=== PATIENT | female | born 1950 | race Caucasian/White ===

== ENCOUNTER 2022-01-05 06:15 | Inpatient (IN) ==
--- NOTE | 2021-09-24 11:40 | PAT Medication Instructions ---
Medication Instructions Date of Service September 24, 2021 Home Medications acetaminophen 500 mg tablet 500 mg PO Q6H PRN albuterol sulfate 90 mcg/actuation aerosol inhaler 2 puff INHALATION QID PRN aspirin 81 mg tablet,delayed release 81 mg PO QAM atorvastatin 40 mg tablet 40 mg PO HS bupropion HCl 100 mg tablet,12 hr sustained-release 100 mg PO QAM escitalopram oxalate 20 mg tablet 20 mg PO QAM furosemide 40 mg tablet 40 mg PO QAM gabapentin 800 mg tablet 800 mg PO TID lorazepam 0.5 mg tablet 0.5 mg PO TID PRN losartan 50 mg tablet 50 mg PO QAM meclizine 25 mg capsule 24 mg PO TID PRN metformin 1,000 mg tablet 1,000 mg PO BID metoprolol tartrate 25 mg tablet 25 mg PO QAM oxycodone-acetaminophen 5 mg-325 mg tablet (Percocet) 1 tab PO Q4H PRN pantoprazole 40 mg tablet,delayed release 40 mg PO QAM ziprasidone HCl 40 mg capsule (Geodon) 40 mg PO BID ASK your prescriber and surgeon aspirin 81 mg tablet,delayed release 81 mg PO QAM ziprasidone HCl 40 mg capsule (Geodon) 40 mg PO BID DO NOT take the morning of surgery furosemide 40 mg tablet 40 mg PO QAM losartan 50 mg tablet 50 mg PO QAM metformin 1,000 mg tablet 1,000 mg PO BID Take morning of surgery With a small sip of water, OTHERWISE NOTHING TO EAT OR DRINK AFTER MIDNIGHT: acetaminophen 500 mg tablet 500 mg PO Q6H PRN (if needed) albuterol sulfate 90 mcg/actuation aerosol inhaler 2 puff INHALATION QID PRN (use if needed; please bring rescue inhaler with you to hospital day of surgery if possible) bupropion HCl 100 mg tablet,12 hr sustained-release 100 mg PO QAM escitalopram oxalate 20 mg tablet 20 mg PO QAM gabapentin 800 mg tablet 800 mg PO TID lorazepam 0.5 mg tablet 0.5 mg PO TID PRN (if needed) meclizine 25 mg capsule 24 mg PO TID PRN (if needed) metoprolol tartrate 25 mg tablet 25 mg PO QAM oxycodone-acetaminophen 5 mg-325 mg tablet (Percocet) 1 tab PO Q4H PRN (if needed) pantoprazole 40 mg tablet,delayed release 40 mg PO QAM Take evening before surgery acetaminophen 500 mg tablet 500 mg PO Q6H PRN (if needed) albuterol sulfate 90 mcg/actuation aerosol inhaler 2 puff INHALATION QID PRN (if needed) atorvastatin 40 mg tablet 40 mg PO HS gabapentin 800 mg tablet 800 mg PO TID lorazepam 0.5 mg tablet 0.5 mg PO TID PRN (if needed) meclizine 25 mg capsule 24 mg PO TID PRN (if needed) metformin 1,000 mg tablet 1,000 mg PO BID oxycodone-acetaminophen 5 mg-325 mg tablet (Percocet) 1 tab PO Q4H PRN (if need ed) Other Notes If you have any questions please call us at [phone] or [phone] or [phone] or [phone]
--- NOTE | 2021-10-02 11:10 | Anesthesiology Consultation ---
Date of Service October 02, 2021 Assessment & Plan (1) Encounter for pre-operative examination: - dyspnea on exertion: will attempt to obtain most recent cardiology note. - check BSG am DOS. - COVID screening: Per assessment on 10/02/2021: Travel screen negative, no known COVID-19 positive contacts or current COVID-19 related symptoms in past 2 weeks. Pt vaccinated. Surgeon arranging preop COVID testing, scheduled 11/06/2021. Awaiting results. Chart Review Chart Review: Pending: Refer to Additional Notes / Consult section and Patient seen in Pre Admission Testing Teaching & Discussion Pre-Anesthesia Teaching/Discussion Notes: Instructed NPO after midnight before surgery, except medications with 15 cc of water. Medication instructions provided according to the PAT guidelines. History Surgery Operation Date: 11/10/21 07:00 Proposed Procedures p Right Total Shoulder Arthroplasty Reverse - Enoch Capellan, Height/Weight Height: 5 ft 3 in Weight: 133.2 kg Allergies Allergy/AdvReac Type Severity Reaction Status Date / Time cephalexin [From Keflex] Allergy Unknown Rash Verified 09/18/21 13:14 Penicillins Allergy Unknown A Verified 09/18/21 13:14 CHILD-RASH Medications Home Medications Medication Instructions Recorded Confirmed Last Taken acetaminophen 500 mg tablet 500 mg PO Q6H PRN 09/18/21 09/18/21 Unknown albuterol sulfate 90 mcg/actuation 2 puff INHALATION QID PRN 09/18/21 09/18/21 Unknown aerosol inhaler aspirin 81 mg tablet,delayed 81 mg PO QAM 09/18/21 09/18/21 Unknown release atorvastatin 40 mg tablet 40 mg PO HS 09/18/21 09/18/21 Unknown bupropion HCl 100 mg tablet,12 hr 100 mg PO QAM 09/18/21 09/18/21 Unknown sustained-release escitalopram oxalate 20 mg tablet 20 mg PO QAM 09/18/21 09/18/21 Unknown furosemide 40 mg tablet 40 mg PO QAM 09/18/21 09/18/21 Unknown gabapentin 800 mg tablet 800 mg PO TID 09/18/21 09/18/21 Unknown lorazepam 0.5 mg tablet 0.5 mg PO TID PRN 09/18/21 09/18/21 Unknown losartan 50 mg tablet 50 mg PO QAM 09/18/21 09/18/21 Unknown meclizine 25 mg capsule 24 mg PO TID PRN 09/18/21 09/18/21 Unknown metformin 1,000 mg tablet 1,000 mg PO BID 09/18/21 09/18/21 Unknown metoprolol tartrate 25 mg tablet 25 mg PO QAM 09/18/21 09/18/21 Unknown oxycodone-acetaminophen 5 mg-325 1 tab PO Q4H PRN 09/18/21 09/18/21 Unknown mg tablet (Percocet) pantoprazole 40 mg tablet,delayed 40 mg PO QAM 09/18/21 09/18/21 Unknown release ziprasidone HCl 40 mg capsule 40 mg PO BID 09/18/21 09/18/21 Unknown (Laila) Additional Notes: Pt and accompanying friend advised in detail that Laila is fine to continue from anesthesia standpoint, she just needs to check if prescriber/surgeon have any concerns/recommendations crescencio-operatively. They verbalized understanding to not adjust medication without instruction from prescriber and if advised to continue, we agree with continuing medication including day of surgery. They verbalized understanding and agreement, denied questions or concerns. Past Medical History Medical History (Updated 10/03/21 @ 08:15 by Beth Lopez PA-C) Anemia 10/02/21 pre-op H&H: Anxiety Asthma LAST USE INHALER MORE THAN 1 YR AGO Cardiac murmur chronic per pt, poor visualization on 04/26/17 echo-no Doppler evidence of valvular stenosis of regurgitation Chronic cough denies change or worsening, occasionally productive, follows with PCP Depression Diabetes NIDDM Dyspnea on effort occ. walking between rooms, denies chest discomfort GERD (gastroesophageal reflux disease) controlled, stable per pt Hiatal hernia Hyperlipidemia Hypertension controlled, stable; white coat hypertension Morbid obesity with BMI of 50.0-59.9, adult Sleep apnea unable to tolerate CPAP device Urgency of urination Patient denies h/o stroke, seizures, heart attack, heart failure, blood clots or blood transfusions. Exercise / Class Metabolic Activity III < 4 Walking/Shop/Light housework (ambulates with walker, occ SOB walking between rooms-chronic; denies chest discomfort) Past Family History Family History Sister Family history of reaction to anesthesia Mother Family history of diabetes mellitus Past Surgical History Surgical History History of appendectomy History of bilateral tubal ligation History of bladder repair surgery History of cardiac cath MORE THAN 10 YRS AGO-NO STENTS PLACED History of cholecystectomy History of colonoscopy History of dilatation and curettage History of esophagogastroduodenoscopy (EGD) History of nasal surgery S/P FRACTURE History of tonsillectomy Past Anesthesia History No Hx of Anesthesia Complications and No Family Hx of Anesthesia Complications History of PONV No Hx of PONV and No Hx of Motion Sickness Social History Smoking Status: Never smoker Do You Dip or Chew Tobacco: No Hx Alcohol Use: No Hx Substance Use: No Review of Systems Patient denies chest pain, fever, chills, wheezing, or palpitations. Physical Exam Vital Signs Vitals BP 134/82 P 56 TEMP 98.0 SP02 95% on RA RESP 17 Physical Full cervical extension range of motion without pain TMD 3.5 finger breaths Mallampati Score 3 Dentition: edentulous, full upper and lower dentures Lungs: normal respiratory effort. Clear throughout to auscultation, no adventitious breath sounds Cardiac: regular rate and rhythm, 2/6 systolic murmur Carotid arteries: negative bruit bilat Lab Results Anesthesia Preop Results Results Anesthesia Widget: WBC 9.54 K/ul (4.8-10.8) 10/02/21 Hgb 10.9 g/dl (12.0-16.0) L 10/02/21 Hct 34.8 % (34.1-44.9) 10/02/21 Plt 277 K/uL (130-400) 10/02/21 Na 136 mmol/L (136-145) 10/02/21 K 4.7 mmol/L (3.5-5.1) 10/02/21 Cl 99 mmol/L (98-107) 10/02/21 CO2 30 mmol/L (21-32) 10/02/21 BUN 18 mg/dl (6-23) 10/02/21 Creat 0.75 mg/dl (0.6-1.2) 10/02/21 Glucose Level 154 mg/dl (70-99(Fasting)) H 10/02/21 PT 10.2 Seconds (9.0-12.0) 10/02/21 PTT 23.9 Seconds (21.0-31.0) 10/02/21 INR 1.0 (0.9-1.1) 10/02/21 HA1c 8.3 % (4.5-5.6) H 10/02/21 Blood Type B Positive 10/02/21 Antibody Screen NEGATIVE 10/02/21 Testing Laboratory Results Myra with surgeon's office made aware of elevated A1c and reduced hemoglobin. Electrocardiogram Date: 10/02/21 Sinus bradycardia with sinus arrhythmia, rate 56 bpm Chest X-Ray Date: 10/02/21 FINDINGS: There are low lung volumes. The cardiac silhouette is borderline enlarged. This could be accentuated by the low lung volumes. No pneumothorax. No pleural effusions. Severe osteoarthritis at the right glenohumeral joint. The lungs are clear. No evidence for pulmonary edema. Degenerative changes noted within the thoracic spine. IMPRESSION: Borderline cardiomegaly which could be accentuated by the low lung volumes. Otherwise, no acute process within the chest. Echocardiogram EF 50-55% No definite regional wall motion abnormalities Valve structures are not well visualized. No Doppler evidence of valvular stenosis or regurgitation
--- NOTE | 2022-01-01 06:48 | History & Physical Report ---
Date of Service January 01, 2022 Assessment & Plan (1) Osteoarthritis of right shoulder: We will proceed with a right reverse shoulder arthroplasty. Postoperatively she will be placed in a sling and kept overnight for postoperative medical management. She plans to use community nurses upon discharge. History of Present Illness Chief Complaint: Osteoarthritis of the right shoulder. Primary Care Provider: Myke Baez DO Belia is a pleasant 70-year-old female who has been dealing with chronic increasing right shoulder pain. She ambulates mostly with a walker due to back pain and some instability. She is having trouble eating because of her right shoulder. It wakes her up every night and she has to keep ice on it. She has been treated at another facility. She has had multiple injections of her shoulder,which are no longer helping. After failing extensive conservative treatment, she has elected to proceed with a right reverse shoulder arthroplasty. Allergies Allergy/AdvReac Type Severity Reaction Status Date / Time cephalexin [From Keflex] Allergy Unknown Rash Verified 12/31/21 13:12 Penicillins Allergy Unknown A Verified 12/31/21 13:12 CHILD-RASH Home Medications Medication Instructions Recorded Confirmed Type acetaminophen 500 mg tablet 500 mg PO Q6H PRN Pain 09/18/21 12/31/21 History albuterol sulfate 90 mcg/actuation 2 puff inhalation QID PRN Wheezing 09/18/21 12/31/21 History aerosol inhaler aspirin 81 mg tablet,delayed 81 mg PO QAM 09/18/21 12/31/21 History release atorvastatin 40 mg tablet 40 mg PO HS 09/18/21 12/31/21 History bupropion HCl 100 mg tablet,12 hr 100 mg PO QAM 09/18/21 12/31/21 History sustained-release escitalopram oxalate 20 mg tablet 30 mg PO QAM 09/18/21 12/31/21 History furosemide 40 mg tablet 40 mg PO QAM 09/18/21 12/31/21 History gabapentin 800 mg tablet 800 mg PO TID 09/18/21 12/31/21 History lorazepam 0.5 mg tablet 0.5 mg PO TID PRN Anxiety 09/18/21 12/31/21 History losartan 50 mg tablet 50 mg PO QAM 09/18/21 12/31/21 History meclizine 25 mg capsule 25 mg PO TID PRN Dizziness 09/18/21 12/31/21 History metformin 1,000 mg tablet 1,000 mg PO BID 09/18/21 12/31/21 History metoprolol tartrate 25 mg tablet 25 mg PO QAM 09/18/21 12/31/21 History oxycodone-acetaminophen 5 mg-325 1 tab PO Q4H PRN Pain 09/18/21 12/31/21 History mg tablet (Percocet) pantoprazole 40 mg tablet,delayed 40 mg PO QAM 09/18/21 12/31/21 History release ziprasidone HCl 40 mg capsule 40 mg PO BID 09/18/21 12/31/21 History (Geodon) allopurinol 100 mg tablet 100 mg PO QPM 12/31/21 12/31/21 History fexofenadine 180 mg tablet 180 mg PO QAM 12/31/21 12/31/21 History loratadine 10 mg tablet 10 mg PO HS 12/31/21 12/31/21 History Past Med/Surg History Medical History Anemia 10/02/21 pre-op H&H: Anxiety Asthma LAST USE INHALER MORE THAN 1 YR AGO Cardiac murmur chronic per pt, poor visualization on 04/26/17 echo-no Doppler evidence of valvular stenosis of regurgitation Chronic cough denies change or worsening, occasionally productive, follows with PCP Chronic diastolic heart failure Depression Diabetes NIDDM Dyspnea on effort occ. walking between rooms, denies chest discomfort GERD (gastroesophageal reflux disease) controlled, stable per pt Hiatal hernia Hyperlipidemia Hypertension controlled, stable; white coat hypertension Morbid obesity with BMI of 50.0-59.9, adult Sleep apnea unable to tolerate CPAP device Takotsubo cardiomyopathy Urgency of urination Surgical History History of appendectomy History of bilateral tubal ligation History of bladder repair surgery History of cardiac cath MORE THAN 10 YRS AGO-NO STENTS PLACED History of cholecystectomy History of colonoscopy History of dilatation and curettage History of esophagogastroduodenoscopy (EGD) History of nasal surgery S/P FRACTURE History of tonsillectomy Family History Sister Family history of reaction to anesthesia Mother Family history of diabetes mellitus Social History Smoking Status: Never smoker Second Hand Exposure: No; Hx Alcohol Use: No Hx Substance Use: No Preferred Language: Mauritian Communication Ability: Effective Airport Ramp Attendant Required: No Beliefs That Will Affect Care: Gnosticist Gnosticist Beliefs: MORAVIAN marital status: / Current Living Situation: Family and Other Current Living Situation Comment: LIVES WITH SON current occupational status: retired current occupation: RETIRED How many Children do You have: 2 Feels Safe at Home: Yes Assistive Devices: Denture - Upper, Denture - Lower, Glasses and Walker Review of Systems All systems reviewed & are unremarkable except as noted in HPI & below. Physical Exam On physical examination the right shoulder, she has decreased range of motion and crepitus throughout. She has weakness mostly secondary to pain.. Constitutional WD/WN, vitals as above Eyes PERRL, conjunctivae normal, anicteric sclerae ENMT external ear and nose normal, oropharynx normal Neck trachea midline, no thyromegaly Respiratory normal respiratory effort, lungs clear to auscultation Cardiovascular RRR, no murmur, no edema Gastrointestinal (Abdomen) normal bowel sounds, soft, nontender, no hepatosplenomegaly Skin no rashes, warm and dry Psychiatric A+Ox3, euthymic affect Results & Data Results & Data Laboratory Results . Diagnostic Findings X-rays of the right shoulder show advanced osteoarthritis with joint space narrowing, osteophyte formation, and [id number] articulation. PG Care Time/CCT Total # of Minutes Spent Total Time Spent with Patient: Total time spent is greater than 50% in coordination of care (as documented) at patient's floor/unit and/or counseling patient: Coding Level of Care Code None Diagnoses Osteoarthritis of right shoulder M19.011
[~2022-01-05 06:15] MED LIST: ACETAMINOPHEN 500 MG TAB PO SCH; ALLERGY Noted to ORDERED Medication SCH; FAMOTIDINE 20 MG TAB PO SCH; GABAPENTIN 300 MG CAP PO SCH; LR 15ML/HR IV SCH; LR 60ML/HR IV SCH; ORTHO JOINT MIX INFIL SCH; TRANEXAMIC ACID 1,000 MG **IV Intra-op IV SCH; TRANEXAMIC ACID 1,000 MG **IV Pre-op IV SCH; dexAMETHasone 4 MG TAB PO SCH
[2022-01-05] MEDS ORDERED: BUPIVACAINE 0.5 % 5 MG/1 ML PF 10ML VIAL ONE (06:19)
--- NOTE | 2022-01-05 06:49 | History & Physical Bridge Note ---
Date of Service January 05, 2022 History & Physical Bridge Note I have examined the patient, reviewed the History & Physical and in the interval since the performance of the History & Physical I have noted the following changes of clinical significance: no changes noted
[2022-01-05 06:58] LABS: Basophils # (auto) 0.06 K/uL (0-0.2); Basophils % (auto) 0.5 %; Eosinophils % (auto) 6.3 %; Hematocrit (blood only) 37.6 % (34.1-44.9); Hemoglobin 11.7 g/dl (12.0-16.0); Immature Granulocytes # (auto) 0.03 K/uL (0.00-0.02); Immature Granulocytes % (auto) 0.3 %; Lymphocytes # (auto) 2.31 K/uL (1.2-3.4); Lymphocytes % (auto) 20.6 %; Mean Corpuscular Hemoglobin 27.4 pg (25.0-34.0); Mean Corpuscular Hgb Conc 31.1 g/dL (32.0-36.0); Mean Corpuscular Volume 88.1 fL (80.0-100.0); Mean Platelet Volume 9.5 fL (9.4-12.3); Monocytes # (auto) 0.77 K/uL (0.24-0.82); Monocytes % (auto) 6.9 %; Neutrophils # (auto) 7.32 K/uL (1.4-6.5); Neutrophils % (auto) 65.4 %; Platelet Count 366 K/uL (130-400); RDW Coefficient of Variation 13.6 % (11.5-14.5); RDW Standard Deviation 43.5 fL (36.4-46.3); Red Blood Count 4.27 M/uL (3.93-5.22); White Blood Count 11.19 K/ul (4.8-10.8)
[2022-01-05] MEDS ORDERED: Nursing to Pharmacy Communication SCH (07:15)
[2022-01-05 07:20] LABS: BUN Creatinine Ratio 21.2 (10-20); Calcium 9.3 mg/dl (8.5-10.1); Creatinine Clr Calc Pharmacy 79.6 ml/min; Est GFR (African American) 79.3 ml/min; Est GFR (Non-African American) 68.5 ml/min; Potassium 4.3 mmol/L (3.5-5.1)
[2022-01-05] MEDS ORDERED: PROPOFOL IV EMULSION 10 MG/ML 20 ML VIAL IV ONE ×2 (07:20→08:57)
[2022-01-05] MEDS ORDERED: NEOSTIGMINE METHYLSULFATE 1 MG/ML 10ML VIAL ONE (07:20)
[2022-01-05] MEDS ORDERED: ROCURONIUM BROMIDE 10 MG/ML 5 ML VIAL IV ONE (07:20)
[2022-01-05] MEDS ORDERED: GLYCOPYRROLATE 0.2 MG/ML VIAL ONE (07:20)
[2022-01-05] MEDS ORDERED: DEXAMETHASONE SOD INJ 4 MG/ML VIAL ONE (07:20)
[2022-01-05] MEDS ORDERED: ePHEDrine sulfate 50 MG/ML SYR ONE (07:20)
[2022-01-05] MEDS ORDERED: LIDOCAINE 2% MPF LOCAL 5 ML VIAL INFIL ONE (07:20)
[2022-01-05] MEDS ORDERED: ONDANSETRON INJ 2 MG/ML 2 ML VIAL ONE (07:20)
[2022-01-05] MEDS ORDERED: fentaNYL citrate 100 MCG/2 ML VIAL ONE (07:21)
[2022-01-05] MEDS ORDERED: MIDAZOLAM HCL 1 MG/ML 2ML VIAL ONE (07:21)
[2022-01-05] MEDS ORDERED: ORTHO JOINT ANESTHETIC ONE (07:24)
[2022-01-05] MEDS ORDERED: ePHEDrine sulfate 50 MG/ML AMP IV PRN (07:28)
[2022-01-05] MEDS ORDERED: ATROPINE SULFATE 0.1 MG/ML 10ML SYR IV PRN (07:28)
[2022-01-05] MEDS ORDERED: fentaNYL citrate 100 MCG/2 ML VIAL IV PRN (07:28)
[2022-01-05] MEDS ORDERED: ONDANSETRON INJ 2 MG/ML 2 ML VIAL IV PRN ×2 (07:28→10:50)
[2022-01-05] MEDS ORDERED: ALBUTEROL HFA INHALER 8.5 GM ONE (08:28)
[2022-01-05] MEDS ORDERED: SUCCINYLCHOLINE CHLORIDE 20 MG/ML 10 ML VIAL IV ONE (08:57)
[2022-01-05] MEDS ORDERED: PHENYLEPHRINE HCL 10 MG/ML VIAL ONE (08:58)
--- NOTE | 2022-01-05 09:24 | Operative Report ---
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 Post-Op Diagnosis: Right Shoulder Degenerative Joint Disease with tendinopathy long head of the biceps tendon I identified the patient and participated in the time-out.: Yes Procedure Operation Date: 01/05/22 08:10 Actual Procedures p Right Total Shoulder Arthroplasty Reverse(Right) with open biceps tenodesis as a distinct and separate procedures (modifier 59)- Enoch Capellan DO Surgeon Enoch Capellan DO Treasury Director Enoch Moerno PA-C Estimated Blood Loss 200 Findings Consistent with Post-Op Diagnosis Specimens Right humeral head Description of Procedure A CPT code modifier 22: The case took greater than 50% longer to perform. It took longer to do the positioning and the overall dissection and retraction to to her morbid obesity. She has a BMI of 53.1. A CPT code modifier 59: The long head of the biceps tendon was enlarged and inflamed consistent with tendinopathy. A tenodesis was opted. This was a separate and distinct portion of the procedure. For these reasons, a CPT code modifier 59 will be added to this case. Implants used: I used a [employer]omet Comprehensive reverse total shoulder arthroplasty system with a size 9 press fit micro humeral stem, a +6 offset humeral tray and a standard humeral bearing, a 25 mm baseplate with a 6.5 mm central screw and superior and inferior locking screws, and a size 40 mm eccentric glenosphere. Belia arrived at [facility] for the above procedure. She was seen in the preoperative holding area and the operative extremity was identified and signed. She was given a preoperative antibiotic, TXA, and an interscalene nerve block. She was taken back to the operating room, laid on table in supine p osition, and put under general anesthesia. She was then put into the beachchair position. The shoulder was then prepped and draped in sterile fashion. A timeout was done and the patient and the operative extremity was properly identified. A deltopectoral approach was used. Dissection was taken down through the fascia and the deltoid was retracted laterally and the conjoined tendon was retracted medially. The anterior shoulder was exposed. The biceps groove was opened up and the biceps tendon was examined extensively. The biceps tendon demonstrated enlargement and inflammatory changes consistent with longstanding inflammation in the context of osteoarthritis and cuff arthropathy. The long head of the biceps tendon was then tenodesed to the upper border of the pectoralis major. This was a separate and distinct portion of the procedure. The subscapularis was then directly released off the lesser tuberosity with a peel technique. The inferior capsule was released and the humeral head was dislocated. A canal finding reamer was sent down the center of the humeral canal. Sequential reaming up to a size 9 reamer was done. Off that reamer, a proximal humeral resection guide was placed. The proximal humerus was resected at 135 of inclination and 25 of retroversion. Osteophytes were then removed and the glenoid was exposed. Time was spent doing a complete capsular and labral release. The glenoid guide was then placed in the inferior aspect of the glenoid. A 3.2 mm Steinmann pin was then placed into the glenoid vault at 10 of inclination. The glenoid baseplate was then reamed. The final size 25 mm baseplate was then impacted in the place. A 6.5 mm central screw was then placed followed by superior and inferior locking screws. A 40 mm eccentric glenosphere was then impacted into place. Surrounding soft tissues were then injected with 100 cc an orthopedic pain control cocktail. The proximal humerus was then exposed. Sequential broaching of the humerus up to a size 9 broach was done. Off that broach a +6 offset humeral tray was trialed. The shoulder was then reduced, brought through a full range of motion, and felt to be stable. The shoulder was then dislocated and the broach was removed. The final size 9 micro press-fit humeral stem was then impacted into place. A standard humeral bearing was then snapped onto a +6 offset humeral tray. The humeral tray was then impacted onto the humeral stem. The shoulder was once again reduced, brought through a full range of motion, and felt to be stable. The subscapularis was then tenodesed ba ck to the lesser tuberosity with transosseous FiberWire sutures and side to side sutures with the arm in 45 of external rotation. A dilute betadyne lavage was then done for 3 minutes. The joint was then irrigated with normal saline solution. Hemostasis was obtained. The interval was closed with 2-0 Vicryl suture. The skin was then closed with 2-0 Vicryl and orquidea. A Silverlon dressing was placed and the arm was rested in a regular arm sling. She was then extubated and transferred to a hospital bed. She taken to the postanesthesia care unit in stable condition. She tolerated the procedure well. Enoch Moreno PA-C, was present for the entire procedure. He was critical for patient positioning, prepping, draping, retraction exposure, wound closure and application of sterile dressing. I attest to the content of the Intraoperative Record and any orders documented therein. Any exceptions are noted below.
[2022-01-05] MEDS ORDERED: LR 15ML/HR IV SCH (10:45)
--- NOTE | 2022-01-05 10:47 | Anesthesiology Progress Note ---
Date of Service January 05, 2022 Anesthesia Post Procedure Vital Signs Vital Signs: Temp Pulse Pulse Pulse Resp BP Pulse Ox 01/05/22 10:25 96.8 F L 69 14 116/72 99 01/05/22 10:15 69 17 150/72 H 100 01/05/22 10:05 69 16 150/92 H 99 01/05/22 09:55 70 14 153/114 H 99 01/05/22 09:46 97.5 F L 70 17 139/84 100 01/05/22 09:56 70 16 97 01/05/22 06:51 98.2 F 70 20 131/83 96 01/05/22 06:51 O2 Del Method FiO2 01/05/22 10:25 BiPAP 40 01/05/22 10:15 BiPAP 40 01/05/22 10:05 BiPAP 40 01/05/22 09:55 BiPAP 40 01/05/22 09:46 BiPAP 40 01/05/22 09:56 50 01/05/22 06:51 Room Air 01/05/22 06:51 Room Air Pain Intensity Right Shoulder: Pain Intensity: 0 Transfer of Care Handoff Completed per policy Notes Mental Status: alert / awake / arousable and participated in evaluation Patient Amnestic to Procedure: Yes Nausea / Vomiting: adequately controlled Pain: adequately controlled Airway Patency, RR, SpO2: stable & adequate BP & HR: stable & adequate Hydration State: stable & adequate Anesthetic Complications: no major complications apparent and Pt Satisfied with anesthetic care
[2022-01-05] MEDS ORDERED: MAGNESIUM HYDROXIDE SUSP 30 ML UDC PO PRN (10:50)
[2022-01-05] MEDS ORDERED: METOCLOPRAMIDE HCL INJ 5 MG/ML 2 ML VIAL IV PRN (10:50)
[2022-01-05] MEDS ORDERED: PHARMACY GLYCEMIC MGMT CONSULT PRN (10:50)
[2022-01-05] MEDS ORDERED: bisacodyL 10 MG SUPP PR PRN (10:50)
[2022-01-05] MEDS ORDERED: NALOXONE HCL 0.4 MG/1 ML VIAL/CARP IV PRN (10:50)
[2022-01-05] MEDS ORDERED: SODIUM CHLORIDE 0.9% 1000ML 1,000 ML IV SCH (10:50)
[2022-01-05] MEDS ORDERED: HYDROmorphone INJ 0.5 MG/0.5 ML SYR IV PRN (10:50)
[2022-01-05] MEDS ORDERED: MECLIZINE HCL 25 MG TAB PO PRN (11:25)
[2022-01-05] MEDS ORDERED: GLUCOSE 40% GEL 15 GM TUBE PO PRN (11:30)
[2022-01-05] MEDS ORDERED: CARBOHYDRATES FOR HYPOGLYCEMIA PO PRN (11:30)
[2022-01-05] MEDS ORDERED: GLUCOSE 10 TAB/TUBE PO PRN (11:30)
[2022-01-05] MEDS ORDERED: GLUCAGON FOR INJ 1 MG VIAL IM PRN (11:30)
[2022-01-05] MEDS ORDERED: DEXTROSE 50% 50 ML SYRINGE IV PRN (11:30)
--- NOTE | 2022-01-05 11:31 | Pharmacy Report ---
Pharmacy Glycemic Short Note 2 - Date of Service January 05, 2022 - Glycemic Short BSG Results (Last 24 hours): 01/05/22 01/05/22 01/05/22 06:47 06:59 09:52 Glucose 146 H POC Glucose 135 H 159 H OUTPATIENT ANTIDIABETIC REGIMEN: * metformin 1000 mg bid * A1c 7.4% 09/19/21 ASSESSMENT: * 71 year old now s/p R total shoulder arthroplasty, POD 0. Pharmacy consulted for glycemic management. Patient only on metformin at home. Received PO steroids preop and also dexamethasone 4 IV x 1 intraoperatively, therefore anticipate steroid induced hyperglycemia. * BSGs this morning in 150s - plan to start novolog with stress of 2/3 dosing for now. May consider adding NPH if BSGs trending up >180 PLAN FOR INPATIENT GLYCEMIC CONTROL: * Hold outpatient oral diabetes medications * Basal insulin * hold * Bolus insulin * NovoLog per scale ACHS or Q6hrs while NPO * Goal Range: Low 110 mg/dL - High 140 mg/dL * Correction Factor: 15 mg/dL/unit * Nutritional / Prandial insulin per carb ratio of 1 unit per 6 grams CHO consumed
--- NOTE | 2022-01-05 11:37 | XRay Report ---
XR shoulder RT min 2V routine CLINICAL HISTORY: Post shoulder surgery COMPARISON STUDY: None. FINDINGS: Status post reverse right total shoulder arthroplasty. The hardware is intact. No fracture or dislocation. Skin orquidea are in place. IMPRESSION: Status post reverse right total shoulder arthroplasty. No evidence for hardware complica tion. ACT 112: Negative or not required by law. Electronically signed by: Mike Aquino M.D. 01/05/2022 11:35 AM
[2022-01-05] MEDS: KETOROLAC TROMETHAMINE 15 MG/ML VIAL IV SCH ×2 (11:45→16:51)
[2022-01-05] MEDS ORDERED: LEVALBUTEROL HCL 1.25 MG/3 ML NEB NEB STA (12:04)
--- NOTE | 2022-01-05 12:11 | Hospitalist Consultation ---
Date of Consultation January 05, 2022 Assessment & Plan (1) Acute respiratory failure: Upon entering the room the patient was exhibiting tachypnea increased work of breathing using abdominal muscles to breathe. She was awake and able to speak to me she was on BiPAP. Family cannot recall whether she took her morning diuretic dose. She is a history of diastolic heart failure. Subsequently the BiPAP may have been creating some breath stacking the BiPAP was removed she was placed on nasal cannula and x-ray to be obtained given intravenous Bumex and given a Xopenex nebulizer. Reassessment will occur (2) Status post reverse total replacement of right shoulder: Performed 01/05/[address] Capellan (3) Chronic diastolic heart failure: Patient does look heart failure and Takotsubo's cardiomyopathy she was given clearance by cardiology prior to her surgery. 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 Intravenous fluid to be held postoperatively additional dose of Bumex 0.5 mg IV will be given. She will be maintained on metoprolol 25 Is a history of nonocclusive coronary artery disease only maintained on aspirin atorvastatin metoprolol as mentioned above (4) Diabetes: Patient has morbid obesity likely type 2 diabetes she typically takes metformin 1000 mg. Orthopedics has invoked a pharmacy consultation for diabetic management (5) Hypertension: Typically diuretics and metoprolol (6) Morbid obesity with BMI of 50.0-59.9, adult: (7) Depression: Continues on Geodon Wellbutrin and Lexapro History of Present Illness Attending Physician: Enoch Capellan, History of Present Illness 71-year-old female who has a history of diastolic heart failure and Takotsubo's heart failure nonobstructive coronary disease obstructive sleep apnea and diabetes who had a reverse shoulder on 01/[address] Capellan. I was urgently called to the floor the patient was on BiPAP and having increased work of breathing. Speaking to the nurse at the bedside when I arrived the patient did transition from PACU to the floor on BiPAP due to postoperative sleepiness. For my arrival patient's family at the bedside the patient was able to speak to me she appeared to have difficulty with end expiration we remove the BiPAP the patient saturations on room air remained 90-91% we gave her Augmentin nasal cannula oxygen. She did have some stridorous breath sounds initially but these seem to improve. Patient states that she may have had a history of asthma in the distant past but not typically been an issue for her she is not smoking person. Patient is also on a diuretic last the [id number] whether she took her diuretic and the [id number] cannot recall specific events but she said she took inhaled medications as instructed by the perioperative team At this point time can order a Xopenex nebulizer check a chest x-ray and her blood pressure is low but stable we will stop IV fluids and order a small dose of intravenous Bumex Allergies Allergy/AdvReac Type Severity Reaction Status Date / Time cephalexin [From Keflex] Allergy Unknown Rash Verified 01/05/22 06:48 Penicillins Allergy Unknown A Verified 01/05/22 06:48 CHILD-RASH Home Medications Medication Instructions Recorded Confirmed Type acetaminophen 500 mg tablet 500 mg PO Q6H PRN Pain 09/18/21 01/05/22 History albuterol sulfate 90 mcg/actuation 2 puff inhalation QID PRN Wheezing 09/18/21 01/05/22 History aerosol inhaler aspirin 81 mg tablet,delayed 81 mg PO QAM 09/18/21 01/05/22 History release atorvastatin 40 mg tablet 40 mg PO HS 09/18/21 01/05/22 History bupropion HCl 100 mg tablet,12 hr 100 mg PO QAM 09/18/21 01/05/22 History sustained-release escitalopram oxalate 20 mg tablet 30 mg PO QAM 09/18/21 01/05/22 History furosemide 40 mg tablet 40 mg PO QAM 09/18/21 01/05/22 History gabapentin 800 mg tablet 800 mg PO TID 09/18/21 01/05/22 History lorazepam 0.5 mg tablet 0.5 mg PO TID PRN Anxiety 09/18/21 01/05/22 History losartan 50 mg tablet 50 mg PO QAM 09/18/21 01/05/22 History meclizine 25 mg capsule 25 mg PO TID PRN Dizziness 09/18/21 01/05/22 History metformin 1,000 mg tablet 1,000 mg PO BID 09/18/21 01/05/22 History metoprolol tartrate 25 mg tablet 25 mg PO QAM 09/18/21 01/05/22 History oxycodone-acetaminophen 5 mg-325 1 tab PO Q4H PRN Pain 09/18/21 01/05/22 History mg tablet (Percocet) pantoprazole 40 mg tablet,delayed 40 mg PO QAM 09/18/21 01/05/22 History release ziprasidone HCl 40 mg capsule 40 mg PO BID 09/18/21 01/05/22 History (Geodon) allopurinol 100 mg tablet 100 mg PO QPM 12/31/21 01/05/22 History fexofenadine 180 mg tablet 180 mg PO QAM 12/31/21 01/05/22 History loratadine 10 mg tablet 10 mg PO HS 12/31/21 01/05/22 History Patient History Medical History (Updated 01/05/22 @ 12:10 by Daniel Lobo MD) Anemia 10/02/21 pre-op H&H: Anxiety Asthma LAST USE INHALER MORE THAN 1 YR AGO Cardiac murmur chronic per pt, poor visualization on 04/26/17 echo-no Doppler evidence of valvular stenosis of regurgitation Chronic cough denies change or worsening, occasionally productive, follows with PCP Chronic diastolic heart failure Depression Diabetes NIDDM Dyspnea on effort occ. walking between rooms, denies chest discomfort GERD (gastroesophageal reflux disease) controlled, stable per pt Hiatal hernia Hyperlipidemia Hypertension controlled, stable; white coat hypertension Morbid obesity with BMI of 50.0-59.9, adult Sleep apnea unable to tolerate CPAP device Takotsubo cardiomyopathy Urgency of urination Surgical History (Updated 01/05/22 @ 09:25 by Enoch Capellan DO) History of appendectomy History of bilateral tubal ligation History of bladder repair surgery History of cardiac cath MORE THAN 10 YRS AGO-NO STENTS PLACED History of cholecystectomy History of colonoscopy History of dilatation and curettage History of esophagogastroduodenoscopy (EGD) History of nasal surgery S/P FRACTURE History of tonsillectomy Family History Sister Family history of reaction to anesthesia Mother Family history of diabetes mellitus Social History Smoking Status: Never smoker Second Hand Exposure: No; Do You Dip or Chew Tobacco: No; Tobacco Cessation Education Requested by Patient: No Hx Alcohol Use: No Hx Substance Use: No Preferred Language: Croatian Communication Ability: Effective 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: No Beliefs That Will Affect Care: Jew Jew 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: EPISCOPALIAN marital status: / Current Living Situation: Family and Other Current Living Situation Comment: LIVES WITH SON current occupational status: retired current occupation: RETIRED How many Children do You have: 2 Other Information That Helps Us Care for You: No Feels Safe at Home: Yes Safety Concerns: Feels Safe At This Time Assistive Devices: Denture - Upper, Denture - Lower, Glasses and Walker Review of Systems Review of Systems: Moderate respiratory distress with tachypnea accessory muscle use and belly breathing and fatigue no headache, no visual changes no speech or swallowing issues no chest pain, pressure or palpitations Significant shortness of breath and expiratory wheezing no abdominal pain, nausea or vomiting, diarrhea or constipation no dysuria, hematuria or frequency Right shoulder is in a sling no back pain, CVA tenderness or radicular pain no bruising, bleeding or rashes no focal signs of weakness or numbness or altered sensation no complaints of anxiety or depression.. Physical Exam Physical Exam: The patient appeared well nourished and normally developed. She is morbidly obese with a BMI of 53 She is in acute respiratory failure with tachypnea accessory muscle use and belly breathing Vital signs as documented. Head exam is normocephalic atraumatic Neck is without JVD, thyromegaly, or carotid bruits. She has some end expiratory breath sounds or wheezes no overt stridor Lungs are auscultated bilaterally on BiPAP with reasonably good air movement but prolonged expiratory phase Cardiac exam, Rhythm is regular.. No murmurs, rubs or gallops. Abdominal exam reveals normal bowel sounds, soft non tender, no masses Right shoulder is in a sling distal sensation is intact to her hand Neurologic exam is alert and oriented, no focal loss of strength or sensation Skin is without bruises or rashes Psychologically is without concerns for anxiety or depression.. Results & Data Results & Data ([facility]) Vital Signs (Past 12 Hours) Vital Signs Temp Pulse Pulse Pulse Resp BP Pulse Ox 01/05/22 11:00 98.1 F 65 22 112/72 100 01/05/22 10:50 97.2 F L 69 24 139/82 99 01/05/22 10:41 69 22 99 01/05/22 10:25 96.8 F L 69 14 116/72 99 01/05/22 10:15 69 17 150/72 H 100 01/05/22 10:05 69 16 150/92 H 99 01/05/22 09:55 70 14 153/114 H 99 01/05/22 09:46 97.5 F L 70 17 139/84 100 01/05/22 09:56 70 16 97 01/05/22 06:51 98.2 F 70 20 131/83 96 01/05/22 06:51 O2 Del Method FiO2 01/05/22 11:00 BiPAP 01/05/22 10:50 01/05/22 10:41 40 01/05/22 10:25 BiPAP 40 01/05/22 10:15 BiPAP 40 01/05/22 10:05 BiPAP 40 01/05/22 09:55 BiPAP 40 01/05/22 09:46 BiPAP 40 01/05/22 09:56 50 01/05/22 06:51 Room Air 01/05/22 06:51 Room Air PG Care Time/CCT Total # of Minutes Spent Total Time Spent with Patient: Total time spent is greater than 50% in coordination of care (as documented) at patient's floor/unit and/or counseling patient: Coding Level of Care Code 31775 Inpt Consult Level 5 Diagnoses Acute respiratory failure J96.00 Status post reverse total replacement of right shoulder Z96.611 Chronic diastolic heart failure I50.32 Diabetes E11.9 Hypertension I10 Morbid obesity with BMI of 50.0-59.9, adult E66.01; Z68.43 Depression F32.A
[2022-01-05] MEDS ORDERED: BUMETANIDE 0.5 MG in SYRINGE 0 ML IV ONE (12:15)
[2022-01-05] MEDS ORDERED: NovoLIN-N (NPH) PER UNIT CHARGE SQ ONE (12:15)
[2022-01-05] MEDS: ALBUTEROL HFA 8 GM INHALER INH PRN ×2 (13:21→20:38)
[2022-01-05] MEDS ORDERED: ALBUT/IPRATROP 3MG/0.5MG NEB 3 ML VIAL NEB ONE (13:25)
[2022-01-05] MEDS ORDERED: ALBUT/IPRATROP 3MG/0.5MG NEB 3 ML VIAL ONE (13:32)
[2022-01-05] MEDS ORDERED: GABAPENTIN 800 MG TAB PO SCH (14:00)
[2022-01-05] MEDS: INSULIN ASPART PER UNIT SC SCH ×3 (14:27→20:19)
[2022-01-05 14:32] LABS: iSTAT Allen Test Pass; iSTAT Art Bld Gas pCO2 Correct 52 mmHg (35-46); iSTAT Art Bld Gas pH Corrected 7.296 (7.35-7.45); iSTAT Arterial Blood Gas HCO3 26 meg/L (19-24); iSTAT Arterial Blood Gas pCO2 53 mmHg (35-46); iSTAT Arterial Blood Gas pH 7.29 (7.35-7.45); iSTAT Arterial Blood Gas pO2 104 mmHg (80-95); iSTAT Arterial Blood Gas pO2 C 102; iSTAT Carbon Dioxide 27 mmol/L (24-31); iSTAT Hematocrit 34 % (37-47); iSTAT Hemoglobin 11.6 g/dl (12.0-16.0); iSTAT Potassium 5.1 mmol/L (3.3-5.0); iSTAT Site L Radial; iSTAT Sodium 134 mmol/L (135-144)
[2022-01-05] MEDS: ACETAMINOPHEN 500 MG TAB PO SCH ×2 (15:00→20:24)
--- NOTE | 2022-01-05 15:03 | XRay Report ---
XR chest 1V portable CLINICAL HISTORY: eval for HF COMPARISON STUDY: Chest radiograph October 02, 2021. FINDINGS: Right shoulder arthroplasty is partially imaged. There are skin orquidea. Moderate elevation of the right hemidiaphragm has increased since prior exam. Right basilar opacity favors atelectasis. There is no evidence for pulmonary edema. Cardiomegaly is unchanged. IMPRESSION: 1. Moderate elevation of the right hemidiaphragm, increased since preoperative radiographs. Right bas ilar opacity suggestive of atelectasis. 2. Cardiomegaly. No evidence for pulmonary edema. ACT 112: Negative or not required by law. Electronically signed by: Felix Marie M.D. 01/05/2022 3:01 PM
--- NOTE | 2022-01-05 15:10 | Critical Care Consultation ---
Date of Consultation January 05, 2022 Assessment & Plan (1) Admitted to intensive care unit: Reason Critically Ill: 71-year-old female with PMHx of diastolic heart failure, Takotsubo's heart failure, nonobstructive CAD, RONEY not on cpap, and diabetes who had a reverse shoulder on 01/05/[address] Capellan.Following surgery on the medical floor, pt was on BiPAP for postoperative sleepiness with increased work of breathing. Neuro - [facility] ICU: Sedation: none Anesthesia: none AOx3 Cardiac - -History of CHF Inc. work of breathing s/p shoulder surgery, maintaining adequate O2 sat; h/o RONEY not on cpap at home cont. home lasix.; bumex x1 given prior to ICU admission hold IVF for now -HTN cont. home BP meds Respiratory - inc. work of breathing s/p shoulder surgery, maintaining adequate O2 sat; h/o RONEY not on cpap at home CXR: Moderate elevation of the right hemidiaphragm, increased since preoperative radiographs. Right basilar opacity. Cardiomegaly. No evidence for pulmonary edema. 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 with bipap, will monitor overnight COVID negative GI - No acute issues Protonix RENAL/LYTES - Replace lytes as needed ENDO - on SSI hypoglycemic protocol as needed HEME - Monitor H&H ID - on ancef s/p surgery for prophylaxis, cont. low suspicion for active infection at this time Full Code --Prophylaxis VTE: SCDs, s/p shoulder surgery GI: Pantoprazole Lines: Peripheral Diet: Clears (2) Acute respiratory failure: (3) Morbid obesity with BMI of 50.0-59.9, adult: (4) Hypertension: (5) Diabetes: (6) Chronic diastolic heart failure: (7) Status post reverse total replacement of right shoulder: Supervising Physician Co-Signing Physician Notes Patient seen and examined. EMR reviewed. Discussed with hospitalist service as well as with family practice resident. Agree with assessment plan as noted. 71-year-old female status post shoulder arthroplasty with history of untreated sleep disordered breathing presenting with hypoxemic and hypercarbic respiratory failure. Chest x-ray demonstrates what appears to be elevation of the right hemidiaphragm. The patient did receive an interscalene block. This may be consistent with potential diaphragmatic dysfunction/paralysis. Continue BiPAP. We will follow-up blood gas in a few hours to ensure she is trending in the appropriate direction. Follow-up chest x-ray in the a.m.. Typically diaphragmatic paralysis associated with scalene blocks is a temporary issue and tends to resolve over time although in some occasions he may be poorly tolerated (underlying sleep disordered breathing, morbid obesity, restrictive lung disease). No evidence of significant airflow obstruction or significant fluid overload although the patient does have grade 2 diastolic dysfunction and judicious fluids will be used. Low threshold for empiric diuretics. We will be very judicious in the use of any respiratory suppressant medications including narcotics, benzodiazepines, or other potential medications known to potentially decrease respiratory drive. Will observe overnight and if the patient does well she can likely transfer out to the floor in the a.m. Patient is critically ill at this point in time with significant possibility of clinical deterioration and/or . A total of 40 minutes in critical care time was spent in evaluation management stabilization of this patient. History of Present Illness Reason for Consultation: Respiratory failure Attending Physician: Enoch Capellan DO History of Present Illness 71-year-old female with PMHx of diastolic heart failure, Takotsubo's heart failure, nonobstructive CAD, RONEY, diabetes, depression, gout, HTN, HLD who had a reverse shoulder on 01/05/[address] Capellan.Following surgery on the medical floor, pt was on BiPAP for postoperative sleepiness with increased work of breathing. BiPAP was removed and the patient saturations on room air remained 90-91%. Supplemental O2 via nasal cannula oxygen was given.She did have some stridorous breath sounds initially but these seem to improve.Patient states that she may have had a history of asthma in the distant past but that has not typically been an issue for her. Non smoker. Patient is also on a diuretic last the [id number] whether she took her diuretic and the [id number] cannot recall specific events but she said she took inhaled medications as instructed by the perioperative team Prior to ICU transfer she was ordered a Xopenex nebulizer and given a small dose of intravenous Bumex. IVF were stopped. CXR ordered. Denies sob, chest pain, N/V, abd pain, headache. Allergies Allergy/AdvReac Type Severity Reaction Status Date / Time cephalexin [From Keflex] Allergy Unknown Rash Verified 01/05/22 06:48 Penicillins Allergy Unknown A Verified 01/05/22 06:48 CHILD-RASH Home Medications Medication Instructions Recorded Confirmed Type acetaminophen 500 mg tablet 500 mg PO Q6H PRN Pain 09/18/21 01/05/22 History albuterol sulfate 90 mcg/actuation 2 puff inhalation QID PRN Wheezing 09/18/21 01/05/22 History aerosol inhaler aspirin 81 mg tablet,delayed 81 mg PO QAM 09/18/21 01/05/22 History release atorvastatin 40 mg tablet 40 mg PO HS 09/18/21 01/05/22 History bupropion HCl 100 mg tablet,12 hr 100 mg PO QAM 09/18/21 01/05/22 History sustained-release escitalopram oxalate 20 mg tablet 30 mg PO QAM 09/18/21 01/05/22 History furosemide 40 mg tablet 40 mg PO QAM 09/18/21 01/05/22 History gabapentin 800 mg tablet 800 mg PO TID 09/18/21 01/05/22 History lorazepam 0.5 mg tablet 0.5 mg PO TID PRN Anxiety 09/18/21 01/05/22 History losartan 50 mg tablet 50 mg PO QAM 09/18/21 01/05/22 History meclizine 25 mg capsule 25 mg PO TID PRN Dizziness 09/18/21 01/05/22 History metformin 1,000 mg tablet 1,000 mg PO BID 09/18/21 01/05/22 History metoprolol tartrate 25 mg tablet 25 mg PO QAM 09/18/21 01/05/22 History pantoprazole 40 mg tablet,delayed 40 mg PO QAM 09/18/21 01/05/22 History release ziprasidone HCl 40 mg capsule 40 mg PO BID 09/18/21 01/05/22 History (Geodon) allopurinol 100 mg tablet 100 mg PO QPM 12/31/21 01/05/22 History fexofenadine 180 mg tablet 180 mg PO QAM 12/31/21 01/05/22 History loratadine 10 mg tablet 10 mg PO HS 12/31/21 01/05/22 History oxycodone-acetaminophen 5 mg-325 1 tab PO Q4H PRN Pain #30 tabs 01/05/22 Rx mg tablet (Percocet) Patient History Medical History (Updated 01/05/22 @ 15:09 by Tanner Prasad DO) Anemia 10/02/21 pre-op H&H: Anxiety Asthma LAST USE INHALER MORE THAN 1 YR AGO Cardiac murmur chronic per pt, poor visualization on 04/26/17 echo-no Doppler evidence of valvular stenosis of regurgitation Chronic cough denies change or worsening, occasionally productive, follows with PCP Chronic diastolic heart failure Depression Diabetes NIDDM Dyspnea on effort occ. walking between rooms, denies chest discomfort GERD (gastroesophageal reflux disease) controlled, stable per pt Hiatal hernia Hyperlipidemia Hypertension controlled, stable; white coat hypertension Morbid obesity with BMI of 50.0-59.9, adult Sleep apnea unable to tolerate CPAP device Takotsubo cardiomyopathy Urgency of urination Surgical History (Updated 01/05/22 @ 09:25 by Enoch Capellan DO) History of appendectomy History of bilateral tubal ligation History of bladder repair surgery History of cardiac cath MORE THAN 10 YRS AGO-NO STENTS PLACED History of cholecystectomy History of colonoscopy History of dilatation and curettage History of esophagogastroduodenoscopy (EGD) History of nasal surgery S/P FRACTURE History of tonsillectomy Family History Sister Family history of reaction to anesthesia Mother Family history of diabetes mellitus Social History Smoking Status: Never smoker Second Hand Exposure: No; Do You Dip or Chew Tobacco: No; Tobacco Cessation Education Requested by Patient: No Hx Alcohol Use: No Hx Substance Use: No Preferred Language: Mohawk Communication Ability: Effective 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 Beliefs That Will Affect Care: Spiritism Spiritism Beliefs: SIKHISM marital status: / Current Living Situation: Family and Other Current Living Situation Comment: LIVES WITH SON current occupational status: retired current occupation: RETIRED How many Children do You have: 2 Other Information That Helps Us Care for You: No Feels Safe at Home: Yes Safety Concerns: Feels Safe At This Time Assistive Devices: Denture - Upper, Denture - Lower, Glasses and Walker Review of Systems Review of Systems: All systems reviewed & are unremarkable except as noted in HPI & below Physical Exam Physical Exam: Constitutional: No acute distress HEENT: EOMI, PERRLA, no cervical or axillary lymphadenopathy Respiratory system:on bipap. Good air entry bilaterally. Diffuse expiratory wheezes. No rhonchi, no crackles. CVS: RRR. S1-S2 positive, no murmurs or gallops Abdomen: Soft, nondistended, positive bowel sounds x4, obese, no guarding or rebound Extremities: +2 pulses bilaterally radialis/dorsalis pedis,no cyanosis, no edema Neuro: AOx3 Psych: Normal mood and affect Skin: warm and dry Results & Data Results & Data ([facility]) Vital Signs (Past 12 Hours) Vital Signs Temp Pulse Pulse Pulse Resp BP Pulse Ox 01/05/22 13:20 36.8 C 68 22 94 01/05/22 12:20 36.7 C 80 24 93 01/05/22 11:20 36.7 C 72 22 99 01/05/22 14:12 90 20 96 01/05/22 13:37 80 20 96 01/05/22 13:22 80 28 H 93 01/05/22 12:29 74 22 98 01/05/22 11:00 36.7 C 65 22 112/72 100 01/05/22 10:50 36.2 C L 69 24 139/82 99 01/05/22 10:41 69 22 99 01/05/22 10:25 36 C L 69 14 116/72 99 01/05/22 10:15 69 17 150/72 H 100 01/05/22 10:05 69 16 150/92 H 99 01/05/22 09:55 70 14 153/114 H 99 01/05/22 09:46 36.4 C L 70 17 139/84 100 01/05/22 09:56 70 16 97 01/05/22 06:51 36.8 C 70 20 131/83 96 01/05/22 06:51 O2 Del Method O2 Flow Rate FiO2 01/05/22 13:20 Nasal Cannula 3 01/05/22 12:20 Nasal Cannula 3 01/05/22 11:20 BiPAP 01/05/22 14:12 40 01/05/22 13:37 Nasal Cannula 2 01/05/22 13:22 Nasal Cannula 2 01/05/22 12:29 Nasal Cannula 4 01/05/22 11:00 BiPAP 01/05/22 10:50 01/05/22 10:41 40 01/05/22 10:25 BiPAP 40 01/05/22 10:15 BiPAP 40 01/05/22 10:05 BiPAP 40 01/05/22 09:55 BiPAP 40 01/05/22 09:46 BiPAP 40 01/05/22 09:56 50 01/05/22 06:51 Room Air 01/05/22 06:51 Room Air Laboratory Results Laboratory Results WBC 11.19 K/ul (4.8-10.8) H 01/05/22 06:47 RBC 4.27 M/uL (3.93-5.22) 01/05/22 06:47 Hgb 11.7 g/dl (12.0-16.0) L 01/05/22 06:47 POC Hgb 11.6 g/dl (12.0-16.0) L 01/05/22 14:04 Hct 37.6 % (34.1-44.9) 01/05/22 06:47 POC Hct 34 % (37-47) L 01/05/22 14:04 MCV 88.1 fL (80.0-100.0) 01/05/22 06:47 MCH 27.4 pg (25.0-34.0) 01/05/22 06:47 MCHC 31.1 g/dL (32.0-36.0) L 01/05/22 06:47 RDW Std Deviation 43.5 fL (36.4-46.3) 01/05/22 06:47 RDW Coeff of Alex 13.6 % (11.5-14.5) 01/05/22 06:47 Plt Count 366 K/uL (130-400) 01/05/22 06:47 MPV 9.5 fL (9.4-12.3) 01/05/22 06:47 Immature Gran % (Auto) 0.3 % 01/05/22 06:47 Neut % (Auto) 65.4 % 01/05/22 06:47 Lymph % (Auto) 20.6 % 01/05/22 06:47 [place] % (Auto) 6.9 % 01/05/22 06:47 Eos % (Auto) 6.3 % 01/05/22 06:47 Baso % (Auto) 0.5 % 01/05/22 06:47 Neut # (Auto) 7.32 K/uL (1.4-6.5) H 01/05/22 06:47 Lymph # (Auto) 2.31 K/uL (1.2-3.4) 01/05/22 06:47 [place] # (Auto) 0.77 K/uL (0.24-0.82) 01/05/22 06:47 Eos # (Auto) 0.70 K/uL (0-0.50) H 01/05/22 06:47 Baso # (Auto) 0.06 K/uL (0-0.2) 01/05/22 06:47 Immature Gran # (Auto) 0.03 K/uL (0.00-0.02) H 01/05/22 06:47 Sample Site L Radial 01/05/22 14:04 POC pH 7.29 (7.35-7.45) L 01/05/22 14:04 POC pCO2 53 mmHg (35-46) H 01/05/22 14:04 POC pO2 104 mmHg (80-95) H 01/05/22 14:04 POC HCO3 26 helen/L (19-24) H 01/05/22 14:04 POC Total CO2 27 mmol/L (24-31) 01/05/22 14:04 POC Base Excess -1.0 helen/L (-9-1.8) 01/05/22 14:04 ABG pH (Temp Correct) 7.296 (7.35-7.45) L 01/05/22 14:04 ABG pCO2 (Temp Corrct 52 mmHg (35-46) H 01/05/22 14:04 POC ABG pO2 at Pt Temp 102 01/05/22 14:04 POC ABG O2 Sat 97.0 % (90-95) H 01/05/22 14:04 Ulises Test Pass 01/05/22 14:04 O2 Delivery Device SimpleMask 01/05/22 14:04 POC Sodium 134 mmol/L (135-144) L 01/05/22 14:04 Sodium 136 mmol/L (136-145) 01/05/22 06:47 POC Potassium 5.1 mmol/L (3.3-5.0) H 01/05/22 14:04 Potassium 4.3 mmol/L (3.5-5.1) 01/05/22 06:47 Chloride 99 mmol/L (98-107) 01/05/22 06:47 Carbon Dioxide 27 mmol/L (21-32) 01/05/22 06:47 Anion Gap 10 (3-11) 01/05/22 06:47 BUN 18 mg/dl (6-23) 01/05/22 06:47 Creatinine 0.85 mg/dl (0.6-1.2) 01/05/22 06:47 Est Cr Clr Drug Dosing 79.6 ml/min 01/05/22 06:47 Est GFR ( Amer) 79.3 ml/min 01/05/22 06:47 Est GFR (Non-Af Amer) 68.5 ml/min 01/05/22 06:47 BUN/Creatinine Ratio 21.2 (10-20) H 01/05/22 06:47 Glucose 146 mg/dl (70-99(Fasting)) H 01/05/22 06:47 POC Glucose 207 mg/dl (70-99) H 01/05/22 11:51 Calcium 9.3 mg/dl (8.5-10.1) 01/05/22 06:47 SARS-CoV-2, RNA, NAAT NEGATIVE (NEGATIVE) 01/05/22 Unknown Blood Type B Positive 01/05/22 06:47 Antibody Screen NEGATIVE 01/05/22 06:47 Impressions Shoulder X-Ray 01/05/22 09:49 XR shoulder RT min 2V routine CLINICAL HISTORY: Post shoulder surgery COMPARISON STUDY: None. FINDINGS: Status post reverse right total shoulder arthroplasty. The hardware is intact. No fracture or dislocation. Skin orquidea are in place. IMPRESSION: Status post reverse right total shoulder arthroplasty. No evidence for hardware complication. ACT 112: Negative or not required by law. Electronically signed by: Mike Aquino M.D. 01/05/2022 11:35 AM Chest X-Ray 01/05/22 12:04 XR chest 1V portable CLINICAL HISTORY: eval for HF COMPARISON STUDY: Chest radiograph October 02, 2021. FINDINGS: Right shoulder arthroplasty is partially imaged. There are skin orquidea. Moderate elevation of the right hemidiaphragm has increased since prior exam. Right basilar opacity favors atelectasis. There is no evidence for pulmonary edema. Cardiomegaly is unchanged. IMPRESSION: 1. Moderate elevation of the right hemidiaphragm, increased since preoperative radiographs. Right basilar opacity suggestive of atelectasis. 2. Cardiomegaly. No evidence for pulmonary edema. ACT 112: Negative or not required by law. Electronically signed by: Felix Marie M.D. 01/05/2022 3:01 PM Resident Activity Tracking Resident Involvement: Resident Care Provided Care Provided: Adult Hospital Medicine
--- NOTE | 2022-01-05 16:06 | Electrocardiogram Report ---
Test Reason : Blood Pressure : / mmHG Vent. Rate : 093 BPM Atrial Rate : 093 BPM P-R Int : 138 ms QRS Dur : 092 ms QT Int : 402 ms P-R-T Axes : 027 023 051 degrees QTc Int : 499 ms Normal sinus rhythm Low voltage QRS Cannot rule out Anterior infarct , age undetermined Abnormal ECG When compared with ECG of 02-OCT-2021 11:46, Vent. rate has increased BY 37 BPM Confirmed by Neil Rubin ([id number]) on 01/05/2022 4:05:47 PM Referred By: Enoch Capellan Confirmed By:Neil Rubin
[2022-01-05] MEDS: ceFAZolin 2000MG 2,000 MG/15 ML SYR IV SCH (16:50)
--- NOTE | 2022-01-05 17:00 | Billing Data ---
Date of Service January 05, 2022 Coding Level of Care Code Critical Care 1st - mins
[2022-01-05 17:16] LABS: HCO3 VBG 21 mmol/L; Oxygen Saturation VBG 98.4 %; PCO2 VBG 44 mmHg (38-50); PO2 VBG 96 mmHg; pH VBG 7.28 (7.36-7.41)
[2022-01-05] MEDS: LORazepam 0.5 MG TAB PO PRN (18:33)
[2022-01-05] MEDS: allopurinoL 100 MG TAB PO SCH (20:20)
[2022-01-05] MEDS: LORATADINE 10 MG TAB PO SCH (20:20)
[2022-01-05] MEDS: ATORVASTATIN 40 MG TAB PO SCH (20:21)
[2022-01-05] MEDS: DOCUSATE SODIUM 100 MG CAP PO SCH (20:22)
[2022-01-05] MEDS: SENNA 8.6 MG TAB PO SCH (20:22)
[2022-01-05] MEDS: oxyCODONE HCL IR 5 MG TAB (IMMEDIATE RELEASE) PO PRN (22:45)
[2022-01-06] MEDS ORDERED: INSULIN ASPART PER UNIT SC SCH
[2022-01-06] MEDS: KETOROLAC TROMETHAMINE 15 MG/ML VIAL IV SCH ×5 (00:30→23:11)
[2022-01-06] MEDS: ceFAZolin 2000MG 2,000 MG/15 ML SYR IV SCH (00:32)
[2022-01-06] MEDS: LORazepam 0.5 MG TAB PO PRN ×3 (02:34→14:19)
[2022-01-06] MEDS: ACETAMINOPHEN 500 MG TAB PO SCH ×3 (05:33→20:17)
[2022-01-06] MEDS: ALBUTEROL HFA 8 GM INHALER INH PRN ×2 (05:43→08:32)
[2022-01-06 06:02] LABS: Basophils # (auto) 0.02 K/uL (0-0.2); Basophils % (auto) 0.1 %; Hematocrit (blood only) 33.5 % (34.1-44.9); Hemoglobin 10.4 g/dl (12.0-16.0); Immature Granulocytes # (auto) 0.08 K/uL (0.00-0.02); Immature Granulocytes % (auto) 0.5 %; Lymphocytes # (auto) 0.71 K/uL (1.2-3.4); Lymphocytes % (auto) 4.5 %; Mean Corpuscular Hemoglobin 27.4 pg (25.0-34.0); Mean Corpuscular Volume 88.4 fL (80.0-100.0); Mean Platelet Volume 9.6 fL (9.4-12.3); Monocytes # (auto) 0.85 K/uL (0.24-0.82); Monocytes % (auto) 5.4 %; Neutrophils # (auto) 14.06 K/uL (1.4-6.5); Neutrophils % (auto) 89.5 %; Platelet Count 352 K/uL (130-400); RDW Standard Deviation 44.6 fL (36.4-46.3); Red Blood Count 3.79 M/uL (3.93-5.22); White Blood Count 15.72 K/ul (4.8-10.8)
[2022-01-06 06:27] LABS: BUN Creatinine Ratio 22.9 (10-20); Calcium 9.1 mg/dl (8.5-10.1); Est GFR (African American) 41.9 ml/min; Est GFR (Non-African American) 36.2 ml/min; Magnesium 1.7 mg/dl (1.7-2.4); Phosphorus 5.2 mg/dl (2.5-4.9); Potassium 5.3 mmol/L (3.5-5.1)
--- NOTE | 2022-01-06 07:27 | Orthopedic Progress Note ---
Date of Service January 06, 2022 Assessment & Plan (1) Status post reverse total replacement of right shoulder: Unfortunately, she has been really struggling with her breathing since the procedure. Post operative x-rays do show an elevated right hemidiaphragm which could indicate some phrenic nerve paralysis from the nerve block. This should wear off soon. She is doing well on a BiPAP machine. Her oxygen saturations are 95% on the BiPAP. She seems to be awake and alert and she is able to follow commands. We will continue to monitor her pulmonary status closely. With regards to her right shoulder, she seems to be doing well with that. We will certainly delay any discharge until she is medically ready. Radha Celaya was seen and examined at bedside this morning. She is currently in the ICU for labored breathing. She is on a BiPAP machine. She was unable to keep her sling on overnight. The nurses said she kept taking it off. They said she was pulling at her leads as well.. Review of Systems All systems reviewed & are unremarkable except as noted in HPI & below. Physical Exam On physical examination of the right shoulder, the dressing is clean and dry. She is not wearing her sling. She has active motion of her hand and her wrist. It seems like the motor portion of the block is wearing off.. Results & Data Results & Data Laboratory Results . Diagnostic Findings Postoperative x-rays of the right shoulder show the prosthesis to be in anatomic alignment without any evidence of fracture, desiccation, or loosening. PG Care Time/CCT Total # of Minutes Spent Total Time Spent with Patient: Total time spent is greater than 50% in coordination of care (as documented) at patient's floor/unit and/or counseling patient: Coding Level of Care Code 57012 Post Operative Follow-Up Diagnoses Status post reverse total replacement of right shoulder Z96.611
[2022-01-06] MEDS ORDERED: LANTUS PER UNIT CHARGE SQ ONE (07:45)
[2022-01-06] MEDS: INSULIN ASPART PER UNIT SC SCH ×4 (08:02→20:16)
--- NOTE | 2022-01-06 08:03 | Critical Care Progress Note ---
Date of Service January 06, 2022 Assessment & Plan (1) Admitted to intensive care unit: Plan: Reason Critically Ill: 71-year-old female with PMHx of diastolic heart failure, Takotsubo's heart failure, nonobstructive CAD, RONEY not on cpap, and diabetes who had a reverse shoulder on 01/05/[address] Capellan.Following surgery on the medical floor, pt was on BiPAP for postoperative sleepiness with increased work of breathing. Neuro - [facility] ICU: Sedation: none Anesthesia: none AOx3 Cardiac - -History of CHF Inc. work of breathing s/p shoulder surgery, maintaining adequate O2 sat; h/o ORNEY not on cpap at home bumex x1 given prior to ICU admission hold home lasix going forward given new onset ARGELIA, however, morning dose was administered started on low maintenance IVF -HTN cont. home BP meds BP goal <130/80 Respiratory - inc. work of breathing s/p shoulder surgery, maintaining adequate O2 sat; h/o RONEY not on cpap at home CXR: Moderate elevation of the right hemidiaphragm, increased since preoperative radiographs. Right basilar opacity. Cardiomegaly. No evidence for pulmonary edema Repeat CXR: interval improvement of elevation R hemidiaphragm Suspect phrenic nerve and R hemidiaphragm paralysis due to interscalene block from R shoulder surgery which seems to be wearing off hence resolution Repeat VBG pending, will consider supplementing bicarb if pH not improved. Suspect acute renal injury playing a role. On bipap overnight, transitioned to NC this morning but placed back on bipap. Will attempt to ween down. Encourage OOB and sitting upright. Encourage incentive spirometer and flutter valve. COVID negative GI - No acute issues Protonix RENAL/LYTES - Replace lytes as needed -ARGELIA development of ARGELIA likely due to dehydration encourage oral intake, will give 1L NSS @ 75mls monitor bmp ENDO - on SSI hypoglycemic protocol as needed HEME - Monitor H&H ID - on ancef s/p surgery for prophylaxis, cont. low suspicion for active infection at this time Full Code --Prophylaxis VTE: Heparin GI: Pantoprazole Lines: Peripheral Diet: Clears, DM2 (2) Acute respiratory failure: (3) Morbid obesity with BMI of 50.0-59.9, adult: (4) Hypertension: (5) Diabetes: (6) Chronic diastolic heart failure: (7) Status post reverse total replacement of right shoulder: Admission and Anticipated Discharge Date Admission Date: January 05, 2022 Supervising Physician Co-Signing Physician Notes Patient seen and examined. EMR reviewed. Discussed on multidisciplinary rounds and with bedside critical care nurse as well as with family practice resident. Agree with assessment plan as noted. We will try and increase mobility for the patient by getting her up out of bed to chair. Try and wean off BiPAP. Checking follow-up blood gas. Given her kidney injury, will hold additional attempts at diuresis and provide a small amount of IV fluids (1 L normal saline). Trend BMP later this afternoon. If metabolic acidosis is identified (not anion gap), may consider bicarb to potentially decrease work of breathing. The patient's hemidiaphragm appears to be moving better today on chest x-ray. Continue supportive care with BiPAP as needed. The patient would benefit from using BiPAP at night. If we can wean the patient off of BiPAP during the day, she can likely transfer to the floor and continue to use BiPAP at night. Would recommend that the patient be set up with BiPAP nightly prior to leaving the hospital. Discussed with critical care nurse and patient at bedside. Subjective Seen at bedside this morning. Taken off bipap this morning and put on 4L NC. About one hour later was having some increased work of breathing so was placed back on bipap. When she was initially off bipap, she stated her breathing was better than yesterday but still had to take some deep breaths. She was laying comfortably in bed eating breakfast when on NC. Shoulder sore this morning s/p surgery. Denies chest pain, N/V, headache, abd pain. Review of Systems Review of Systems: All systems reviewed & are unremarkable except as noted in HPI & below Physical Exam Physical Exam: Constitutional: No acute distress HEENT: EOMI, PERRLA, no cervical or axillary lymphadenopathy Respiratory system:on bipap. Improved air entry bilaterally. Audible wheezes. No rhonchi or crackles. CVS: RRR. S1-S2 positive, no murmurs or gallops Abdomen: Soft, nondistended, positive bowel sounds x4, obese, no guarding or harrison ound Extremities: +2 pulses bilaterally radialis/dorsalis pedis,no cyanosis, no edema. Able to make fists with 5/5 strength bilaterally. Neuro: AOx3 Psych: Normal mood and affect Skin: warm and dry Results & Data Results & Data ([facility]) Vital Signs (Past 12 Hours) Vital Signs Temp Pulse Resp BP Pulse Ox O2 Del Method FiO2 01/06/22 06:50 86 16 95 01/06/22 06:40 87 13 95 01/06/22 06:30 87 22 96 01/06/22 06:20 86 21 95 01/06/22 06:10 87 14 94 01/06/22 06:01 86 16 96 01/06/22 06:01 154/77 H 01/06/22 06:00 86 15 93 01/06/22 05:50 90 26 H 97 01/06/22 05:40 100 H 22 98 01/06/22 05:30 94 H 25 H 95 01/06/22 05:20 86 20 96 01/06/22 05:10 87 18 96 01/06/22 05:00 91 H 19 91 01/06/22 04:50 90 18 94 01/06/22 04:40 87 20 96 01/06/22 04:30 92 H 20 96 01/06/22 04:20 97 H 27 H 99 01/06/22 04:10 90 19 97 01/06/22 04:01 88 22 97 01/06/22 04:01 107/80 01/06/22 04:00 92 H 17 95 01/06/22 03:50 97 H 20 98 01/06/22 03:40 88 17 96 01/06/22 03:30 90 24 99 01/06/22 03:20 88 23 95 01/06/22 03:29 92 H 40 H 96 40 01/06/22 03:10 89 19 98 01/06/22 03:00 88 20 93 01/06/22 03:00 137/73 01/06/22 02:50 90 18 97 01/06/22 02:40 93 H 20 97 01/06/22 02:37 152/103 H 01/06/22 02:37 93 H 18 97 01/06/22 02:36 93 H 20 96 01/06/22 02:36 193/112 H 01/06/22 02:34 172/110 H 01/06/22 02:34 93 H 29 H 96 01/06/22 02:30 91 H 14 100 01/06/22 02:20 84 15 96 01/06/22 02:10 85 15 96 01/06/22 02:01 89 19 97 01/06/22 02:01 169/137 H 01/06/22 02:00 85 15 96 01/06/22 01:50 84 16 97 01/06/22 01:40 87 14 97 01/06/22 01:30 83 16 97 01/06/22 01:20 87 17 98 01/06/22 01:10 82 15 97 01/06/22 01:00 81 14 91 01/06/22 01:00 166/102 H 01/06/22 00:50 82 15 96 01/06/22 00:40 82 15 96 01/06/22 00:30 83 14 98 01/06/22 00:20 83 15 97 01/06/22 00:10 83 15 97 01/06/22 00:01 164/104 H 01/06/22 00:01 84 15 97 01/06/22 00:00 84 15 94 01/05/22 23:50 83 13 95 01/05/22 23:40 83 14 95 01/05/22 23:30 85 15 95 01/05/22 23:20 86 16 95 01/05/22 23:10 88 20 97 01/05/22 23:01 93 H 22 83 L 01/05/22 23:01 108/86 01/05/22 23:00 90 21 92 01/05/22 22:50 91 H 33 H 96 01/05/22 22:40 91 H 18 01/05/22 22:30 89 20 96 01/05/22 22:20 89 19 95 01/05/22 22:10 96 H 26 H 97 01/05/22 22:01 90 17 96 01/05/22 22:01 142/106 H 01/05/22 22:00 91 H 18 96 01/05/22 21:50 88 29 H 93 01/05/22 21:40 91 H 20 96 01/05/22 23:22 87 01/05/22 23:08 80 35 H 97 40 01/05/22 23:06 37.4 C 01/05/22 20:57 BiPAP 40 01/05/22 20:57 37.1 C Laboratory Results 01/06/22 01/06/22 01/06/22 Range/Units 07:28 05:46 05:46 WBC 15.72 H (4.8-10.8) K/ul RBC 3.79 L (3.93-5.22) M/uL Hgb 10.4 L (12.0-16.0) g/dl POC Hgb (12.0-16.0) g/dl Hct 33.5 L (34.1-44.9) % POC Hct (37-47) % MCV 88.4 (80.0-100.0) fL MCH 27.4 (25.0-34.0) pg MCHC 31.0 L (32.0-36.0) g/dL RDW Std Deviation 44.6 (36.4-46.3) fL RDW Coeff of Alex 14.0 (11.5-14.5) % Plt Count 352 (130-400) K/uL MPV 9.6 (9.4-12.3) fL Immature Gran % (Auto) 0.5 % Neut % (Auto) 89.5 % Lymph % (Auto) 4.5 % Posey % (Auto) 5.4 % Eos % (Auto) 0.0 % Baso % (Auto) 0.1 % Neut # (Auto) 14.06 H (1.4-6.5) K/uL Lymph # (Auto) 0.71 L (1.2-3.4) K/uL Posey # (Auto) 0.85 H (0.24-0.82) K/uL Eos # (Auto) 0.00 (0-0.50) K/uL Baso # (Auto) 0.02 (0-0.2) K/uL Immature Gran # (Auto) 0.08 H (0.00-0.02) K/uL Sample Site POC pH (7.35-7.45) POC pCO2 (35-46) mmHg POC pO2 (80-95) mmHg POC HCO3 (19-24) helen/L POC Total CO2 (24-31) mmol/L POC Base Excess (-9-1.8) helen/L ABG pH (Temp Correct) (7.35-7.45) ABG pCO2 (Temp Corrct (35-46) mmHg POC ABG pO2 at Pt Temp POC ABG O2 Sat (90-95) % Ulises Test VBG pH (7.36-7.41) VBG pCO2 (38-50) mmHg VBG pO2 mmHg VBG HCO3 mmol/L VBG O2 Saturation % VBG Base Excess mEq/L O2 Delivery Device POC Sodium (135-144) mmol/L Sodium 135 L (136-145) mmol/L POC Potassium (3.3-5.0) mmol/L Potassium 5.3 H D (3.5-5.1) mmol/L Chloride 99 (98-107) mmol/L Carbon Dioxide 25 (21-32) mmol/L Anion Gap 11 (3-11) BUN 33 H (6-23) mg/dl Creatinine 1.44 H D (0.6-1.2) mg/dl Est Cr Clr Drug Dosing 47.0 ml/min Est GFR ( Amer) 41.9 ml/min Est GFR (Non-Af Amer) 36.2 ml/min BUN/Creatinine Ratio 22.9 H (10-20) Glucose 201 H (70-99(Fasting)) mg/dl POC Glucose 189 H (70-99) mg/dl Calcium 9.1 (8.5-10.1) mg/dl Phosphorus 5.2 H (2.5-4.9) mg/dl Magnesium 1.7 (1.7-2.4) mg/dl Nasal Screen MRSA (PCR) (Negative) 01/05/22 01/05/22 01/05/22 Range/Units 23:43 20:12 16:52 WBC (4.8-10.8) K/ul RBC (3.93-5.22) M/uL Hgb (12.0-16.0) g/dl POC Hgb (12.0-16.0) g/dl Hct (34.1-44.9) % POC Hct (37-47) % MCV (80.0-100.0) fL MCH (25.0-34.0) pg MCHC (32.0-36.0) g/dL RDW Std Deviation (36.4-46.3) fL RDW Coeff of Alex (11.5-14.5) % Plt Count (130-400) K/uL MPV (9.4-12.3) fL Immature Gran % (Auto) % Neut % (Auto) % Lymph % (Auto) % Posey % (Auto) % Eos % (Auto) % Baso % (Auto) % Neut # (Auto) (1.4-6.5) K/uL Lymph # (Auto) (1.2-3.4) K/uL Posey # (Auto) (0.24-0.82) K/uL Eos # (Auto) (0-0.50) K/uL Baso # (Auto) (0-0.2) K/uL Immature Gran # (Auto) (0.00-0.02) K/uL Sample Site POC pH (7.35-7.45) POC pCO2 (35-46) mmHg POC pO2 (80-95) mmHg POC HCO3 (19-24) helen/L POC Total CO2 (24-31) mmol/L POC Base Excess (-9-1.8) helen/L ABG pH (Temp Correct) (7.35-7.45) ABG pCO2 (Temp Corrct (35-46) mmHg POC ABG pO2 at Pt Temp POC ABG O2 Sat (90-95) % Ulises Test VBG pH 7.28 L (7.36-7.41) VBG pCO2 44 (38-50) mmHg VBG pO2 96 mmHg VBG HCO3 21 mmol/L VBG O2 Saturation 98.4 % VBG Base Excess -6.0 mEq/L O2 Delivery Device POC Sodium (135-144) mmol/L Sodium (136-145) mmol/L POC Potassium (3.3-5.0) mmol/L Potassium (3.5-5.1) mmol/L Chloride (98-107) mmol/L Carbon Dioxide (21-32) mmol/L Anion Gap (3-11) BUN (6-23) mg/dl Creatinine (0.6-1.2) mg/dl Est Cr Clr Drug Dosing ml/min Est GFR ( Amer) ml/min Est GFR (Non-Af Amer) ml/min BUN/Creatinine Ratio (10-20) Glucose (70-99(Fasting)) mg/dl POC Glucose 178 H 217 H (70-99) mg/dl Calcium (8.5-10.1) mg/dl Phosphorus (2.5-4.9) mg/dl Magnesium (1.7-2.4) mg/dl Nasal Screen MRSA (PCR) (Negative) 01/05/22 01/05/22 01/05/22 Range/Units 16:41 16:27 14:04 WBC (4.8-10.8) K/ul RBC (3.93-5.22) M/uL Hgb (12.0-16.0) g/dl POC Hgb 11.6 L (12.0-16.0) g/dl Hct (34.1-44.9) % POC Hct 34 L (37-47) % MCV (80.0-100.0) fL MCH (25.0-34.0) pg MCHC (32.0-36.0) g/dL RDW Std Deviation (36.4-46.3) fL RDW Coeff of Alex (11.5-14.5) % Plt Count (130-400) K/uL MPV (9.4-12.3) fL Immature Gran % (Auto) % Neut % (Auto) % Lymph % (Auto) % Posey % (Auto) % Eos % (Auto) % Baso % (Auto) % Neut # (Auto) (1.4-6.5) K/uL Lymph # (Auto) (1.2-3.4) K/uL Posey # (Auto) (0.24-0.82) K/uL Eos # (Auto) (0-0.50) K/uL Baso # (Auto) (0-0.2) K/uL Immature Gran # (Auto) (0.00-0.02) K/uL Sample Site L Radial POC pH 7.29 L (7.35-7.45) POC pCO2 53 H (35-46) mmHg POC pO2 104 H (80-95) mmHg POC HCO3 26 H (19-24) helen/L POC Total CO2 27 (24-31) mmol/L POC Base Excess -1.0 (-9-1.8) helen/L ABG pH (Temp Correct) 7.296 L (7.35-7.45) ABG pCO2 (Temp Corrct 52 H (35-46) mmHg POC ABG pO2 at Pt Temp 102 POC ABG O2 Sat 97.0 H (90-95) % Ulises Test Pass VBG pH (7.36-7.41) VBG pCO2 (38-50) mmHg VBG pO2 mmHg VBG HCO3 mmol/L VBG O2 Saturation % VBG Base Excess mEq/L O2 Delivery Device SimpleMask POC Sodium 134 L (135-144) mmol/L Sodium (136-145) mmol/L POC Potassium 5.1 H (3.3-5.0) mmol/L Potassium (3.5-5.1) mmol/L Chloride (98-107) mmol/L Carbon Dioxide (21-32) mmol/L Anion Gap (3-11) BUN (6-23) mg/dl Creatinine (0.6-1.2) mg/dl Est Cr Clr Drug Dosing ml/min Est GFR ( Amer) ml/min Est GFR (Non-Af Amer) ml/min BUN/Creatinine Ratio (10-20) Glucose (70-99(Fasting)) mg/dl POC Glucose 261 H (70-99) mg/dl Calcium (8.5-10.1) mg/dl Phosphorus (2.5-4.9) mg/dl Magnesium (1.7-2.4) mg/dl Nasal Screen MRSA (PCR) Negative (Negative) 01/05/22 01/05/22 Range/Units 11:51 09:52 WBC (4.8-10.8) K/ul RBC (3.93-5.22) M/uL Hgb (12.0-16.0) g/dl POC Hgb (12.0-16.0) g/dl Hct (34.1-44.9) % POC Hct (37-47) % MCV (80.0-100.0) fL MCH (25.0-34.0) pg MCHC (32.0-36.0) g/dL RDW Std Deviation (36.4-46.3) fL RDW Coeff of Alex (11.5-14.5) % Plt Count (130-400) K/uL MPV (9.4-12.3) fL Immature Gran % (Auto) % Neut % (Auto) % Lymph % (Auto) % Posey % (Auto) % Eos % (Auto) % Baso % (Auto) % Neut # (Auto) (1.4-6.5) K/uL Lymph # (Auto) (1.2-3.4) K/uL Posey # (Auto) (0.24-0.82) K/uL Eos # (Auto) (0-0.50) K/uL Baso # (Auto) (0-0.2) K/uL Immature Gran # (Auto) (0.00-0.02) K/uL Sample Site POC pH (7.35-7.45) POC pCO2 (35-46) mmHg POC pO2 (80-95) mmHg POC HCO3 (19-24) helen/L POC Total CO2 (24-31) mmol/L POC Base Excess (-9-1.8) helen/L ABG pH (Temp Correct) (7.35-7.45) ABG pCO2 (Temp Corrct (35-46) mmHg POC ABG pO2 at Pt Temp POC ABG O2 Sat (90-95) % Ulises Test VBG pH (7.36-7.41) VBG pCO2 (38-50) mmHg VBG pO2 mmHg VBG HCO3 mmol/L VBG O2 Saturation % VBG Base Excess mEq/L O2 Delivery Device POC Sodium (135-144) mmol/L Sodium (136-145) mmol/L POC Potassium (3.3-5.0) mmol/L Potassium (3.5-5.1) mmol/L Chloride (98-107) mmol/L Carbon Dioxide (21-32) mmol/L Anion Gap (3-11) BUN (6-23) mg/dl Creatinine (0.6-1.2) mg/dl Est Cr Clr Drug Dosing ml/min Est GFR ( Amer) ml/min Est GFR (Non-Af Amer) ml/min BUN/Creatinine Ratio (10-20) Glucose (70-99(Fasting)) mg/dl POC Glucose 207 H 159 H (70-99) mg/dl Calcium (8.5-10.1) mg/dl Phosphorus (2.5-4.9) mg/dl Magnesium (1.7-2.4) mg/dl Nasal Screen MRSA (PCR) (Negative) Resident Activity Tracking Resident Involvement: Resident Care Provided Care Provided: Adult Hospital Medicine
[2022-01-06] MEDS: buPROPion SR 100 MG TABCR PO SCH (08:07)
[2022-01-06] MEDS: ESCITALOPRAM OXALATE 10 MG TAB PO SCH (08:07)
[2022-01-06] MEDS: PANTOprazole 40 MG TAB PO SCH (08:07)
[2022-01-06] MEDS: ASPIRIN 81 MG ECTAB PO SCH (08:07)
[2022-01-06] MEDS: METOPROLOL TARTRATE 25 MG TAB PO SCH (08:07)
[2022-01-06] MEDS: FEXOFENADINE HCL 180 MG TAB PO SCH (08:07)
[2022-01-06] MEDS: MULTIVITAMIN TAB PO SCH (08:07)
[2022-01-06] MEDS: FUROSEMIDE 40 MG TAB PO SCH (08:07)
[2022-01-06] MEDS: DOCUSATE SODIUM 100 MG CAP PO SCH ×2 (08:15→20:07)
--- NOTE | 2022-01-06 08:35 | XRay Report ---
XR chest 1V portable HISTORY: Respiratory failure. Shortness of breath. COMPARISON: Chest 01/05/2022. FINDINGS: No pneumothorax. The heart remains mildly enlarged. There are low lung volumes with mild el evation the right hemidiaphragm. Right basilar densities persist. There is a right shoulder prosthesi s. No evidence for overt edema. IMPRESSION: Elevation of the right hemidiaphragm with right basilar linear densities favoring subsegmental atelec tasis. A pneumonia could also have a similar appearance in the appropriate clinical setting. This is similar to the prior study. ACT 112: Negative or not required by law. Electronically signed by: Mike Aquino M.D. 01/06/2022 8:33 AM
[2022-01-06] MEDS: LOSARTAN POTASSIUM 50 MG TAB PO SCH (09:23)
--- NOTE | 2022-01-06 09:23 | Pharmacy Report ---
Pharmacy Glycemic Short Note 2 - Date of Service January 06, 2022 - Glycemic Short BSG Results (Last 24 hours): 01/05/22 01/05/22 01/05/22 09:52 11:51 16:41 Glucose POC Glucose 159 H 207 H 261 H 01/05/22 01/05/22 01/06/22 20:12 23:43 05:46 Glucose 201 H POC Glucose 217 H 178 H 01/06/22 07:28 Glucose POC Glucose 189 H OUTPATIENT ANTIDIABETIC REGIMEN: * metformin 1000 mg bid * A1c 7.4% 09/19/21 ASSESSMENT: 01/06 * Patient transferred to ICU yesterday 2nd respiratory concerns, possibly 2nd temporary phrenic nerve paralysis - BiPAP initiated but now transitioned to NC and downgrade anticipated * BSG's were persistently elevated yesterday, likely 2nd surgery and dexamethasone x1. Both of these will be decreasing in effect today. Therefore will not increase basal insulin. Will also transition over to Lantus as basal insulin now that steroids have stopped * Novolog still at tight parameters for now and will keep as-is 2nd hyperglycemia, through lunch. Will loosen slightly starting with dinner, as dexamethasone effects may start to wear off 01/05 * 71 year old now s/p R total shoulder arthroplasty, POD 0. Pharmacy consulted for glycemic management. Patient only on metformin at home. Received PO steroids preop and also dexamethasone 4 IV x 1 intraoperatively, therefore anticipate steroid induced hyperglycemia. * BSGs this morning in 150s - plan to start novolog with stress of 2/3 dosing for now. May consider adding NPH if BSGs trending up >180 PLAN FOR INPATIENT GLYCEMIC CONTROL: * Hold outpatient oral diabetes medications * Basal insulin * Lantus 20 units SC x1 * Bolus insulin * NovoLog per scale ACHS or Q6hrs while NPO * Goal Range: Low 110 mg/dL - High 140 mg/dL * Correction Factor: 25 mg/dL/unit * Nutritional / Prandial insulin per carb ratio of 1 unit per 7 grams CHO consumed
[2022-01-06] MEDS ORDERED: SODIUM CHLORIDE 0.9% 1000ML 1,000 ML IV SCH (09:30)
[2022-01-06 10:01] LABS: Base Excess VBG -0.8 mEq/L; HCO3 VBG 25 mmol/L; Oxygen Saturation VBG 95.1 %; PCO2 VBG 44 mmHg (38-50); PO2 VBG 68 mmHg; pH VBG 7.36 (7.36-7.41)
[2022-01-06] MEDS: ALBUT/IPRATROP 3MG/0.5MG NEB 3 ML VIAL NEB PRN ×2 (11:10→15:34)
--- NOTE | 2022-01-06 11:33 | Billing Data ---
Date of Service January 06, 2022 Coding Level of Care Code 80726 Subseq Hosp Care Lvl 3
[2022-01-06] MEDS: HEPARIN SOD 5,000 UNIT/0.5 ML VIAL SC SCH ×2 (14:00→20:18)
[2022-01-06] MEDS: oxyCODONE HCL IR 5 MG TAB (IMMEDIATE RELEASE) PO PRN ×2 (15:00→21:44)
[2022-01-06 15:02] LABS: BUN Creatinine Ratio 25.8 (10-20); Calcium 8.7 mg/dl (8.5-10.1); Creatinine Clr Calc Pharmacy 51.2 ml/min; Est GFR (African American) 46.6 ml/min; Est GFR (Non-African American) 40.2 ml/min; Potassium 4.5 mmol/L (3.5-5.1)
[2022-01-06] MEDS: DICLOFENAC SOD 1% GEL 100 GM TUBE EXT PRN (15:37)
[2022-01-06] MEDS: ATORVASTATIN 40 MG TAB PO SCH (20:04)
[2022-01-06] MEDS: SENNA 8.6 MG TAB PO SCH (20:04)
[2022-01-06] MEDS: allopurinoL 100 MG TAB PO SCH (20:04)
[2022-01-06] MEDS: LORATADINE 10 MG TAB PO SCH (20:05)
[2022-01-07] MEDS: oxyCODONE HCL IR 5 MG TAB (IMMEDIATE RELEASE) PO PRN ×3 (01:53→19:42)
[2022-01-07] MEDS: LORazepam 0.5 MG TAB PO PRN ×3 (01:53→14:21)
[2022-01-07 05:00] LABS: Basophils # (auto) 0.04 K/uL (0-0.2); Basophils % (auto) 0.3 %; Eosinophils # (auto) 0.04 K/uL (0-0.50); Eosinophils % (auto) 0.3 %; Hematocrit (blood only) 31.4 % (34.1-44.9); Hemoglobin 9.8 g/dl (12.0-16.0); Immature Granulocytes # (auto) 0.04 K/uL (0.00-0.02); Immature Granulocytes % (auto) 0.3 %; Lymphocytes # (auto) 1.64 K/uL (1.2-3.4); Lymphocytes % (auto) 13.3 %; Mean Corpuscular Hemoglobin 27.8 pg (25.0-34.0); Mean Corpuscular Hgb Conc 31.2 g/dL (32.0-36.0); Mean Platelet Volume 9.7 fL (9.4-12.3); Monocytes # (auto) 1.04 K/uL (0.24-0.82); Monocytes % (auto) 8.4 %; Neutrophils # (auto) 9.54 K/uL (1.4-6.5); Neutrophils % (auto) 77.4 %; Platelet Count 276 K/uL (130-400); RDW Coefficient of Variation 14.3 % (11.5-14.5); RDW Standard Deviation 45.9 fL (36.4-46.3); Red Blood Count 3.53 M/uL (3.93-5.22); White Blood Count 12.34 K/ul (4.8-10.8)
[2022-01-07 05:18] LABS: BUN Creatinine Ratio 30.2 (10-20); Calcium 8.9 mg/dl (8.5-10.1); Creatinine Clr Calc Pharmacy 63.8 ml/min; Est GFR (African American) 60.8 ml/min; Est GFR (Non-African American) 52.4 ml/min; Magnesium 1.9 mg/dl (1.7-2.4); Phosphorus 4.6 mg/dl (2.5-4.9); Potassium 4.3 mmol/L (3.5-5.1)
[2022-01-07] MEDS: KETOROLAC TROMETHAMINE 15 MG/ML VIAL IV SCH (06:13)
[2022-01-07] MEDS: ACETAMINOPHEN 500 MG TAB PO SCH ×3 (06:13→19:56)
[2022-01-07] MEDS: HEPARIN SOD 5,000 UNIT/0.5 ML VIAL SC SCH ×3 (06:13→19:57)
--- NOTE | 2022-01-07 06:35 | Orthopedic Progress Note ---
Date of Service January 07, 2022 Assessment & Plan (1) Status post reverse total replacement of right shoulder: Overall she seems to be improving. She is not having much pain in the right shoulder. The motor nerve block seems to have worn off. She only required the BiPAP at night. Hopefully we can advance her diet today and wean her off the BiPAP machine and keep her on nasal cannula. We will keep her in the hospital today. I will continue to follow her closely. Subjective Belia was seen and examined at bedside this morning. Overall she is improving. She was on 3 L of nasal cannula throughout the day yesterday and was on the BiPAP at night. She is still on a clear liquid diet. She says she is feeling better. She denies any much pain in the right shoulder. She has no new complaints.. Review of Systems All systems reviewed & are unremarkable except as noted in HPI & below. Physical Exam On physical examination the right shoulder, the dressing is clean and dry. She has active motion of her hand and her wrist at this point.. Results & Data Results & Data Laboratory Results . Diagnostic Findings . PG Care Time/CCT Total # of Minutes Spent Total Time Spent with Patient: Total time spent is greater than 50% in coordination of care (as documented) at patient's floor/unit and/or counseling patient: Coding Level of Care Code 92363 Post Operative Follow-Up Diagnoses Status post reverse total replacement of right shoulder Z96.611
[2022-01-07] MEDS ORDERED: LANTUS PER UNIT CHARGE SQ SCH (07:45)
[2022-01-07] MEDS ORDERED: LANTUS PER UNIT CHARGE SQ ONE (07:45)
--- NOTE | 2022-01-07 08:02 | Critical Care Progress Note ---
Date of Service January 07, 2022 Assessment & Plan (1) Admitted to intensive care unit: Plan: Reason Critically Ill: 71-year-old female with PMHx of diastolic heart failure, Takotsubo's heart failure, nonobstructive CAD, RONEY not on cpap, and diabetes who had a reverse shoulder on 01/05/[address] Capellan.Following surgery on the medical floor, pt was on BiPAP for postoperative sleepiness with increased work of breathing. Neuro - [facility] ICU: Sedation: none Anesthesia: none AOx3 Cardiac - -History of CHF inc. work of breathing s/p shoulder surgery, maintaining adequate O2 sat; h/o RONEY not on cpap at home bumex x1 given prior to ICU admission holding home lasix due to ARGELIA yesterday given 1L NSS @ low maintenance. Kidney function improved. will defer to medical team to restart home lasix -HTN cont. home BP meds, will monitor BP goal <130/80 Respiratory - inc. work of breathing s/p shoulder surgery, maintaining adequate O2 sat; h/o RONEY not on cpap at home CXR: Moderate elevation of the right hemidiaphragm, increased since preoperative radiographs. Right basilar opacity. Cardiomegaly. No evidence for pulmonary edema Repeat CXR: interval improvement of elevation R hemidiaphragm Suspect phrenic nerve and R hemidiaphragm paralysis due to interscalene block from R shoulder surgery which seems to be wearing off Repeat VBG wnl, improved Should continue with bipap when sleeping at night while in the hospital; otherwise cont. to ween down supplemental O2 during day Encourage OOB and sitting upright. Encourage incentive spirometer and flutter valve. COVID negative GI - No acute issues Protonix RENAL/LYTES - Replace lytes as needed -ARGELIA, resolved developed ARGELIA likely prerenal due to dehydration yesterday given 1L NSS @ low maintenance holding lasix, consider restarting as above encourage oral intake monitor kidney function ENDO - on SSI hypoglycemic protocol as needed HEME - Monitor H&H ID - on ancef s/p surgery for prophylaxis, cont. low suspicion for active infection at this time Full Code --Prophylaxis VTE: Heparin GI: Pantoprazole Lines: Peripheral Diet: DM2 Patient acceptable for downgrade to medical floor at this time. Primary team informed. It was pleasure assisting with the patient's care. Let us know if there are further questions. (2) Acute respiratory failure: (3) Morbid obesity with BMI of 50.0-59.9, adult: (4) Hypertension: (5) Diabetes: (6) Chronic diastolic heart failure: (7) Status post reverse total replacement of right shoulder: Admission and Anticipated Discharge Date Admission Date: January 06, 2022 Supervising Physician Co-Signing Physician Notes Patient seen and examined. EMR reviewed. Discussed on multidisciplinary rounds and with family practice resident as well as bedside critical care nurse. Agree with assessment plan as noted. Patient continues to show clinical improvement. I suspect she may have a degree of tracheobronchial malacia which may benefit from nocturnal positive airway pressure. Continue BiPAP 15/10 nightly while sleeping. The patient will need to follow-up with her outpatient primary care provider to ensure this therapy continues in the long-term. Continue to wean oxygen as tolerated. Weight loss recommended. The patient appears stable to transfer out of the ICU. The hospitalist will provide medical consultative services once the patient leaves the ICU. Feel free to contact us with additional critical care issues. Critical care will sign off. Subjective Seen at bedside this morning. Yesterday, from dinner time to bedtime was able to breath comfortably without bipap. Did well on bipap overnight when sleeping. Now sleeping in recliner as that is her usual at home. Will advance diet this morning. Shoulder remains sore this morning s/p surgery. Denies chest pain, N/V, headache, abd pain, sob. Review of Systems Review of Systems: All systems reviewed & are unremarkable except as noted in HPI & below Physical Exam Physical Exam: Constitutional: No acute distress HEENT: EOMI, PERRLA, no cervical or axillary lymphadenopathy Respiratory system:on bipap. Improved air entry bilaterally. Mildly diminished bibasilar lung sounds. No wheezes, rhonchi, crackles. CVS: RRR. S1-S2 positive, no murmurs or gallops Abdomen: Soft, nondistended, positive bowel sounds x4, obese, no guarding or rebound Extremities: +2 pulses bilaterally radialis/dorsalis pedis,no cyanosis, no edema. Able to make fists with 5/5 strength bilaterally. Neuro: AOx3 Psych: Normal mood and affect Skin: warm and dry Results & Data Results & Data ([facility]) Vital Signs (Past 12 Hours) Vital Signs Temp Pulse Resp BP Pulse Ox O2 Del Method O2 Flow Rate 01/07/22 07:17 85 18 98 01/07/22 06:40 84 19 98 01/07/22 06:30 83 19 100 01/07/22 04:00 36.7 C 01/07/22 06:20 82 21 100 01/07/22 06:10 87 26 H 99 01/07/22 06:01 161/73 H 01/07/22 06:01 84 21 99 01/07/22 06:00 83 31 H 99 01/07/22 05:50 83 19 99 01/07/22 05:40 82 14 98 01/07/22 05:30 82 14 98 01/07/22 05:20 82 22 100 01/07/22 05:10 82 20 100 01/07/22 05:01 163/85 H 01/07/22 05:01 89 24 98 01/07/22 05:00 89 25 H 89 L 01/07/22 04:50 88 15 100 01/07/22 04:46 86 18 100 01/07/22 04:46 167/94 H 01/07/22 04:40 89 19 100 01/07/22 04:30 83 13 99 01/07/22 04:27 149/102 H 01/07/22 04:27 85 18 100 01/07/22 04:20 83 12 99 01/07/22 04:10 84 14 99 01/07/22 04:00 85 27 H 93 01/07/22 03:50 83 12 100 01/07/22 03:40 83 13 100 01/07/22 03:30 83 12 100 01/07/22 03:20 82 12 99 01/07/22 03:10 84 13 99 01/07/22 03:07 87 21 99 01/07/22 03:07 140/95 01/07/22 03:04 91 H 27 H 98 01/07/22 03:02 84 13 99 01/07/22 03:00 83 12 96 01/07/22 02:50 83 13 100 01/07/22 02:40 82 12 97 01/07/22 02:30 82 16 98 01/07/22 02:20 84 18 99 01/07/22 02:10 90 21 97 01/07/22 02:00 83 25 H 100 01/07/22 02:00 179/88 H 01/07/22 01:50 88 18 99 01/07/22 01:40 84 23 99 01/07/22 01:30 88 22 92 01/07/22 01:20 83 16 96 01/07/22 01:10 81 17 96 01/07/22 01:00 81 12 98 01/07/22 01:00 152/84 H 01/07/22 00:50 82 14 97 01/07/22 03:04 83 35 H 99 01/07/22 00:40 83 12 97 01/07/22 00:30 81 10 L 97 01/07/22 00:20 85 14 98 01/07/22 00:10 87 98 01/07/22 00:01 68 97 01/07/22 00:01 139/106 H 01/07/22 00:00 85 86 L 01/06/22 23:50 73 95 01/06/22 23:40 69 95 01/06/22 23:30 81 95 01/06/22 23:20 81 95 01/06/22 23:10 84 95 01/06/22 23:01 85 13 96 01/06/22 23:01 154/65 H 01/06/22 23:00 87 16 96 01/06/22 22:50 88 18 96 01/06/22 22:40 85 13 96 01/06/22 22:30 86 13 96 01/06/22 22:20 87 15 96 01/06/22 22:10 90 17 97 01/07/22 00:00 81 01/06/22 23:06 36.5 C 01/06/22 23:04 90 21 93 01/06/22 22:00 91 H 22 96 01/06/22 22:00 162/90 H 01/06/22 21:50 91 H 17 96 01/06/22 21:40 90 24 97 01/06/22 21:30 89 15 97 01/06/22 21:27 90 17 98 01/06/22 21:27 146/101 H 01/06/22 21:20 89 21 99 01/06/22 21:10 93 H 16 99 01/06/22 21:00 96 H 31 H 97 01/06/22 20:50 92 H 20 92 01/06/22 20:40 92 H 19 98 01/06/22 20:30 92 H 21 96 01/06/22 20:20 92 H 24 98 01/06/22 20:10 94 H 19 98 01/06/22 20:00 94 H 19 01/06/22 21:00 Nasal Cannula 3 FiO2 01/07/22 07:17 30 01/07/22 06:40 01/07/22 06:30 01/07/22 04:00 01/07/22 06:20 01/07/22 06:10 01/07/22 06:01 01/07/22 06:01 01/07/22 06:00 01/07/22 05:50 01/07/22 05:40 01/07/22 05:30 01/07/22 05:20 01/07/22 05:10 01/07/22 05:01 01/07/22 05:01 01/07/22 05:00 01/07/22 04:50 01/07/22 04:46 01/07/22 04:46 01/07/22 04:40 01/07/22 04:30 01/07/22 04:27 01/07/22 04:27 01/07/22 04:20 01/07/22 04:10 01/07/22 04:00 01/07/22 03:50 01/07/22 03:40 01/07/22 03:30 01/07/22 03:20 01/07/22 03:10 01/07/22 03:07 01/07/22 03:07 01/07/22 03:04 01/07/22 03:02 01/07/22 03:00 01/07/22 02:50 01/07/22 02:40 01/07/22 02:30 01/07/22 02:20 01/07/22 02:10 01/07/22 02:00 01/07/22 02:00 01/07/22 01:50 01/07/22 01:40 01/07/22 01:30 01/07/22 01:20 01/07/22 01:10 01/07/22 01:00 01/07/22 01:00 01/07/22 00:50 01/07/22 03:04 30 01/07/22 00:40 01/07/22 00:30 01/07/22 00:20 01/07/22 00:10 01/07/22 00:01 01/07/22 00:01 01/07/22 00:00 01/06/22 23:50 01/06/22 23:40 01/06/22 23:30 01/06/22 23:20 01/06/22 23:10 01/06/22 23:01 01/06/22 23:01 01/06/22 23:00 01/06/22 22:50 01/06/22 22:40 01/06/22 22:30 01/06/22 22:20 01/06/22 22:10 01/07/22 00:00 01/06/22 23:06 01/06/22 23:04 30 01/06/22 22:00 01/06/22 22:00 01/06/22 21:50 01/06/22 21:40 01/06/22 21:30 01/06/22 21:27 01/06/22 21:27 01/06/22 21:20 01/06/22 21:10 01/06/22 21:00 01/06/22 20:50 01/06/22 20:40 01/06/22 20:30 01/06/22 20:20 01/06/22 20:10 01/06/22 20:00 01/06/22 21:00 Laboratory Results 01/07/22 01/07/22 01/06/22 Range/Units 04:43 04:43 20:08 WBC 12.34 H (4.8-10.8) K/ul RBC 3.53 L (3.93-5.22) M/uL Hgb 9.8 L (12.0-16.0) g/dl Hct 31.4 L (34.1-44.9) % MCV 89.0 (80.0-100.0) fL MCH 27.8 (25.0-34.0) pg MCHC 31.2 L (32.0-36.0) g/dL RDW Std Deviation 45.9 (36.4-46.3) fL RDW Coeff of Alex 14.3 (11.5-14.5) % Plt Count 276 (130-400) K/uL MPV 9.7 (9.4-12.3) fL Immature Gran % (Auto) 0.3 % Neut % (Auto) 77.4 % Lymph % (Auto) 13.3 % [place] % (Auto) 8.4 % Eos % (Auto) 0.3 % Baso % (Auto) 0.3 % Neut # (Auto) 9.54 H (1.4-6.5) K/uL Lymph # (Auto) 1.64 (1.2-3.4) K/uL [place] # (Auto) 1.04 H (0.24-0.82) K/uL Eos # (Auto) 0.04 (0-0.50) K/uL Baso # (Auto) 0.04 (0-0.2) K/uL Immature Gran # (Auto) 0.04 H (0.00-0.02) K/uL VBG pH (7.36-7.41) VBG pCO2 (38-50) mmHg VBG pO2 mmHg VBG HCO3 mmol/L VBG O2 Saturation % VBG Base Excess mEq/L Sodium 132 L (136-145) mmol/L Potassium 4.3 (3.5-5.1) mmol/L Chloride 97 L (98-107) mmol/L Carbon Dioxide 29 (21-32) mmol/L Anion Gap 6 (3-11) BUN 32 H (6-23) mg/dl Creatinine 1.06 (0.6-1.2) mg/dl Est Cr Clr Drug Dosing 63.8 ml/min Est GFR ( Amer) 60.8 ml/min Est GFR (Non-Af Amer) 52.4 ml/min BUN/Creatinine Ratio 30.2 H (10-20) Glucose 132 H (70-99(Fasting)) mg/dl POC Glucose 158 H (70-99) mg/dl Calcium 8.9 (8.5-10.1) mg/dl Phosphorus 4.6 (2.5-4.9) mg/dl Magnesium 1.9 (1.7-2.4) mg/dl 01/06/22 01/06/22 01/06/22 Range/Units 16:33 14:31 11:14 WBC (4.8-10.8) K/ul RBC (3.93-5.22) M/uL Hgb (12.0-16.0) g/dl Hct (34.1-44.9) % MCV (80.0-100.0) fL MCH (25.0-34.0) pg MCHC (32.0-36.0) g/dL RDW Std Deviation (36.4-46.3) fL RDW Coeff of Alex (11.5-14.5) % Plt Count (130-400) K/uL MPV (9.4-12.3) fL Immature Gran % (Auto) % Neut % (Auto) % Lymph % (Auto) % [place] % (Auto) % Eos % (Auto) % Baso % (Auto) % Neut # (Auto) (1.4-6.5) K/uL Lymph # (Auto) (1.2-3.4) K/uL [place] # (Auto) (0.24-0.82) K/uL Eos # (Auto) (0-0.50) K/uL Baso # (Auto) (0-0.2) K/uL Immature Gran # (Auto) (0.00-0.02) K/uL VBG pH (7.36-7.41) VBG pCO2 (38-50) mmHg VBG pO2 mmHg VBG HCO3 mmol/L VBG O2 Saturation % VBG Base Excess mEq/L Sodium 134 L (136-145) mmol/L Potassium 4.5 (3.5-5.1) mmol/L Chloride 99 (98-107) mmol/L Carbon Dioxide 26 (21-32) mmol/L Anion Gap 9 (3-11) BUN 34 H (6-23) mg/dl Creatinine 1.32 H (0.6-1.2) mg/dl Est Cr Clr Drug Dosing 51.2 ml/min Est GFR ( Amer) 46.6 ml/min Est GFR (Non-Af Amer) 40.2 ml/min BUN/Creatinine Ratio 25.8 H (10-20) Glucose 128 H (70-99(Fasting)) mg/dl POC Glucose 131 H 182 H (70-99) mg/dl Calcium 8.7 (8.5-10.1) mg/dl Phosphorus (2.5-4.9) mg/dl Magnesium (1.7-2.4) mg/dl 01/06/22 Range/Units 09:27 WBC (4.8-10.8) K/ul RBC (3.93-5.22) M/uL Hgb (12.0-16.0) g/dl Hct (34.1-44.9) % MCV (80.0-100.0) fL MCH (25.0-34.0) pg MCHC (32.0-36.0) g/dL RDW Std Deviation (36.4-46.3) fL RDW Coeff of Alex (11.5-14.5) % Plt Count (130-400) K/uL MPV (9.4-12.3) fL Immature Gran % (Auto) % Neut % (Auto) % Lymph % (Auto) % [place] % (Auto) % Eos % (Auto) % Baso % (Auto) % Neut # (Auto) (1.4-6.5) K/uL Lymph # (Auto) (1.2-3.4) K/uL [place] # (Auto) (0.24-0.82) K/uL Eos # (Auto) (0-0.50) K/uL Baso # (Auto) (0-0.2) K/uL Immature Gran # (Auto) (0.00-0.02) K/uL VBG pH 7.36 (7.36-7.41) VBG pCO2 44 (38-50) mmHg VBG pO2 68 mmHg VBG HCO3 25 mmol/L VBG O2 Saturation 95.1 % VBG Base Excess -0.8 mEq/L Sodium (136-145) mmol/L Potassium (3.5-5.1) mmol/L Chloride (98-107) mmol/L Carbon Dioxide (21-32) mmol/L Anion Gap (3-11) BUN (6-23) mg/dl Creatinine (0.6-1.2) mg/dl Est Cr Clr Drug Dosing ml/min Est GFR ( Amer) ml/min Est GFR (Non-Af Amer) ml/min BUN/Creatinine Ratio (10-20) Glucose (70-99(Fasting)) mg/dl POC Glucose (70-99) mg/dl Calcium (8.5-10.1) mg/dl Phosphorus (2.5-4.9) mg/dl Magnesium (1.7-2.4) mg/dl Resident Activity Tracking Resident Involvement: Resident Care Provided Care Provided: Adult Hospital Medicine
[2022-01-07] MEDS: METOPROLOL TARTRATE 25 MG TAB PO SCH (09:11)
[2022-01-07] MEDS: FEXOFENADINE HCL 180 MG TAB PO SCH (09:11)
[2022-01-07] MEDS: buPROPion SR 100 MG TABCR PO SCH (09:11)
[2022-01-07] MEDS: LOSARTAN POTASSIUM 50 MG TAB PO SCH (09:12)
[2022-01-07] MEDS: ESCITALOPRAM OXALATE 10 MG TAB PO SCH (09:12)
[2022-01-07] MEDS: MULTIVITAMIN TAB PO SCH (09:12)
[2022-01-07] MEDS: ASPIRIN 81 MG ECTAB PO SCH (09:12)
[2022-01-07] MEDS: PANTOprazole 40 MG TAB PO SCH (09:13)
[2022-01-07] MEDS: DOCUSATE SODIUM 100 MG CAP PO SCH ×2 (09:13→19:44)
[2022-01-07] MEDS: DICLOFENAC SOD 1% GEL 100 GM TUBE EXT PRN (09:24)
[2022-01-07] MEDS: INSULIN ASPART PER UNIT SC SCH ×4 (10:02→19:54)
--- NOTE | 2022-01-07 10:21 | Pharmacy Report ---
Pharmacy Glycemic Short Note 2 - Date of Service January 07, 2022 - Glycemic Short BSG Results (Last 24 hours): 01/06/22 01/06/22 01/06/22 11:14 14:31 16:33 Glucose 128 H POC Glucose 182 H 131 H 01/06/22 01/07/22 01/07/22 20:08 04:43 08:18 Glucose 132 H POC Glucose 158 H 131 H 01/07/22 09:53 Glucose POC Glucose 139 H OUTPATIENT ANTIDIABETIC REGIMEN: * metformin 1000 mg bid * A1c 7.4% 09/19/21 ASSESSMENT: 01/07 * Anticipated downgrade from ICU status today. Steroid effects from dexamethasone administered on 01/05 likely dissipated at this time * AM fasting BSG with notable trend down from yesterday, plus steroid effects dissipated. Will decrease Lantus slightly * Will loosen Novolog to a regimen which is slightly tighter than a weight-based moderate stress estimate 01/06 * Patient transferred to ICU yesterday 2nd respiratory concerns, possibly 2nd temporary phrenic nerve paralysis - BiPAP initiated but now transitioned to NC and downgrade anticipated * BSG's were persistently elevated yesterday, likely 2nd surgery and dexamethasone x1. Both of these will be decreasing in effect today. Therefore will not increase basal insulin. Will also transition over to Lantus as basal insulin now that steroids have stopped * Novolog still at tight parameters for now and will keep as-is 2nd hyperglycemia, through lunch. Will loosen slightly starting with dinner, as dexamethasone effects may start to wear off 01/05 * 71 year old now s/p R total shoulder arthroplasty, POD 0. Pharmacy consulted for glycemic management. Patient only on metformin at home. Received PO steroids preop and also dexamethasone 4 IV x 1 intraoperatively, therefore anticipate steroid induced hyperglycemia. * BSGs this morning in 150s - plan to start novolog with stress of 2/3 dosing for now. May consider adding NPH if BSGs trending up >180 PLAN FOR INPATIENT GLYCEMIC CONTROL: * Hold outpatient oral diabetes medications * Basal insulin * Lantus 15 units SC x1, with additional 5 units at HS if BSG > 160 mg/dL * Bolus insulin * NovoLog per scale ACHS or Q6hrs while NPO * Goal Range: Low 110 mg/dL - High 140 mg/dL * Correction Factor: 25 mg/dL/unit * Nutritional / Prandial insulin per carb ratio of 1 unit per 8 grams CHO consumed
--- NOTE | 2022-01-07 11:00 | Hospitalist Progress Note ---
Date of Service January 07, 2022 Assessment & Plan (1) Acute respiratory failure: Plan: Acute hypoxic respiratory failure requiring BiPAP Improving Suspected 2/2 postprocedural diaphragmatic paralysis, patient is with history of CHF but currently appears relatively euvolemic Improving, weaned to 3 L nasal cannula this morning Satting at 98% 01/07, wean to O2 goal 90-94% Stable for downgrade to medical telemetry from ICU Patient with ARGELIA during ICU, clinically dry and ARGELIA now resolved. No overt fluid overload, mild edema of the hands and feet with lungs clear. Resume home Lasix BiPAP nightly as needed, continue to wean oxygen as noted, continue observation overnight Continue incentive spirometry Patient does have chronic cough which she feels is not significantly different from her baseline. Afebrile. If concern for superimposed pneumonia in the setting of surgery/diaphragmatic paralysis/atelectasis can add repeat chest x- ray and Pro-Javier, patient clinically improving and will defer for now (2) Status post reverse total replacement of right shoulder: Plan: Performed 01/05/[address] Capellan Postop management/DVT prophylaxis/pain control per primary orthopedic team, surgical site appears well-healing without superimposed infection/acute concerns (3) Chronic diastolic heart failure: Plan: History of CHF and Takotsubo's, did have cardiac clearance prior to surgical intervention of her shoulder Resume home diuretics tomorrow Continue metoprolol Continue aspirin Continue statin (4) Diabetes: Plan: Pharmacy glycemic management following Continue basal/bolus insulin Glucose checks AC/at bedtime, goal BSG [id number] Home metformin held (5) Hypertension: Plan: Continue losartan, metoprolol BP elevated morning of 01/07, improved following morning medications (6) Morbid obesity with BMI of 50.0-59.9, adult: (7) Depression: Plan: Continues on Geodon Wellbutrin and Lexapro Admission and Anticipated Discharge Date Admission Date: January 06, 2022 Subjective Seen at bedside this morning. Reports that she feels a little bit panicky and nervous, reports she has had some panic attacks previously. Reports overall she feels her breathing is much better, and is not short of breath at time of bedside assessment. She has right-sided chest pain in her upper rib which is worse with palpation, no left-sided chest pain or pain in her left sh oulder/neck. Denies diaphoresis, fever, chills, sweats, lightheadedness, dizziness. She endorses her legs get a little more swollen when she is sitting in the chair, overall they seem relatively normal for her today. Notes that both hands do seem a little bit more swollen than normal. She has a chronic cough, feels this has not changed from its normal baseline significantly. Is not bringing up sputum currently. Review of Systems Review of Systems: All systems reviewed & are unremarkable except as noted in Subjective Physical Exam Physical Exam: General: A&Ox3. NAD. Cooperative. HEENT: Atraumatic, normocephalic. Pupils equal and reactive to light Pulm: Mildly coarse, scattered end expiratory wheezes, no crackles/rales appreciated. Symmetrical chest rise. No increase in work of breathing. No respiratory distress. Cardiac: RRR, soft systolic murmur. Radial pulses intact and symmetrical. Abdominal: Nontender, nondistended, soft. BS present. Extremities: Right shoulder surgical dressing intact, C/D/I. No surrounding er ythema/warmth/purulence. Appropriately tender overlying dressing. Sensation of soft touch intact in fingertips bilaterally, travel registered nurse icu strength and elbow flexion 5/5 bilaterally. Cap refill brisk, radial pulse intact bilaterally. Mild pitting edema of the hands bilaterally. Lower extremities with mild pitting edema bilaterally, sensation intact, PT pulses intact. Results & Data Results & Data ([facility]) Vital Signs (Past 12 Hours) Vital Signs Temp Pulse Resp BP Pulse Ox FiO2 01/07/22 07:01 87 29 H 91 01/07/22 07:01 169/70 H 01/07/22 07:00 81 21 99 01/07/22 07:17 85 18 98 30 01/07/22 06:40 84 19 98 01/07/22 06:30 83 19 100 01/07/22 04:00 36.7 C 01/07/22 06:20 82 21 100 01/07/22 06:10 87 26 H 99 01/07/22 06:01 161/73 H 01/07/22 06:01 84 21 99 01/07/22 06:00 83 31 H 99 01/07/22 05:50 83 19 99 01/07/22 05:40 82 14 98 01/07/22 05:30 82 14 98 01/07/22 05:20 82 22 100 01/07/22 05:10 82 20 100 01/07/22 05:01 163/85 H 01/07/22 05:01 89 24 98 01/07/22 05:00 89 25 H 89 L 01/07/22 04:50 88 15 100 01/07/22 04:46 86 18 100 01/07/22 04:46 167/94 H 01/07/22 04:40 89 19 100 01/07/22 04:30 83 13 99 01/07/22 04:27 149/102 H 01/07/22 04:27 85 18 100 01/07/22 04:20 83 12 99 01/07/22 04:10 84 14 99 01/07/22 04:00 85 27 H 93 01/07/22 03:50 83 12 100 01/07/22 03:40 83 13 100 01/07/22 03:30 83 12 100 01/07/22 03:20 82 12 99 01/07/22 03:10 84 13 99 01/07/22 03:07 87 21 99 01/07/22 03:07 140/95 01/07/22 03:04 91 H 27 H 98 01/07/22 03:02 84 13 99 01/07/22 03:00 83 12 96 01/07/22 02:50 83 13 100 01/07/22 02:40 82 12 97 01/07/22 02:30 82 16 98 01/07/22 02:20 84 18 99 01/07/22 02:10 90 21 97 01/07/22 02:00 83 25 H 100 01/07/22 02:00 179/88 H 01/07/22 01:50 88 18 99 01/07/22 01:40 84 23 99 01/07/22 01:30 88 22 92 01/07/22 01:20 83 16 96 01/07/22 01:10 81 17 96 01/07/22 01:00 81 12 98 01/07/22 01:00 152/84 H 01/07/22 00:50 82 14 97 01/07/22 03:04 83 35 H 99 30 01/07/22 00:40 83 12 97 01/07/22 00:30 81 10 L 97 01/07/22 00:20 85 14 98 01/07/22 00:10 87 98 01/07/22 00:01 68 97 01/07/22 00:01 139/106 H 01/07/22 00:00 85 86 L 01/06/22 23:50 73 95 01/06/22 23:40 69 95 01/06/22 23:30 81 95 01/06/22 23:20 81 95 01/06/22 23:10 84 95 01/06/22 23:01 85 13 96 01/06/22 23:01 154/65 H 01/06/22 23:00 87 16 96 01/06/22 22:50 88 18 96 01/07/22 00:00 81 01/06/22 23:06 36.5 C 01/06/22 23:04 90 21 93 30 PG Care Time/CCT Total # of Minutes Spent Total Time Spent with Patient: Total time spent is greater than 50% in coordination of care (as documented) at patient's floor/unit and/or counseling patient: Coding Level of Care Code 24122 Subseq Hosp Care Lvl 2 Diagnoses Acute respiratory failure J96.00 Status post reverse total replacement of right shoulder Z96.611 Chronic diastolic heart failure I50.32 Diabetes E11.9 Hypertension I10 Morbid obesity with BMI of 50.0-59.9, adult E66.01; Z68.43 Depression F32.A
--- NOTE | 2022-01-07 11:59 | Billing Data ---
Date of Service January 07, 2022 Coding Level of Care Code 05786 Subseq Hosp Care Lvl 3
[2022-01-07] MEDS: ALBUT/IPRATROP 3MG/0.5MG NEB 3 ML VIAL NEB PRN (14:38)
--- NOTE | 2022-01-07 14:51 | XRay Report ---
XR chest 1V portable HISTORY: 71 years-old Female serial xr, hypoxia right shoulder arthroplasty. Acute shortness of marva th COMPARISON: Chest radiograph 01/06/2022 TECHNIQUE: AP view of the chest FINDINGS: Cardiac silhouette is enlarged. Right hemidiaphragmatic elevation with subsegmental opacities. Pulmon felipa vascular congestion. No pneumothorax. Degenerative changes of the spine and left shoulder. Revers e right shoulder total joint arthroplasty with overlying skin orquidea. IMPRESSION: 1. Cardiomegaly with pulmonary vascular congestion. 2. Right hemidiaphragmatic elevation with persistent bibasilar opacities suggestive of probable atele ctasis. ACT 112: Negative or not required by law. The above report was generated using voice recognition software. It may contain grammatical, syntax o r spelling errors. Electronically signed by: Erick Ramos M.D. 01/07/2022 2:48 PM
[2022-01-07] MEDS ORDERED: FUROSEMIDE 40 MG/4 ML VIAL IV ONE (18:41)
--- NOTE | 2022-01-07 18:48 | Communication Note ---
Date of Service: January 07, 2022 Asked to see in follow-up due to respiratory distress. Patient laying in bed, breathing fairly rapidly and pulling her BiPAP mask. When asked how she is feeling she notes her breathing feels okay nownotes that she was fairly significantly dyspneic earlier (clarifying based on story received from nursing and then cross checking with patient it was when she was on nasal cannula). She notes that she does not feel smothered now, but did then. She does complain that the mask is somewhat uncomfortablefrequently asking if the clip on her right cheek could be undone. She does note that she has a history of sleep apnea and should be on either CPAP or BiPAP but had not been able to get used to it whenever she tried a long time ago, and notes that she has been told that the equipment is much more comfortable now and thinks she may want to try again. Otherwise she is fairly weak, but her breathing feels surprisingly comfortable compared to how she appears. Vitals noted, in general she is awake alert oriented x3 pleasant but somewhat tachypneic. HEENT normocephalic atraumatic mucous membranes moist. BiPAP mask in place with a fairly decent seal as long as she is not pulling on it. Lungs are very difficult exam due to her weakness morbid obesity and only able to lift herself up with her left arm because of her right shoulder surgerybut her lungs do sound harsh and coarse far more than I would expect from hypoventilation alone. Lung sounds are symmetric. She is somewhat tachypneic with mild accessory muscle use off and on, but oddly in an incongruence way does not really have conversational dyspnea with this. Acute respiratory distress -Suspect given the harsh breath sounds in her chest x-ray, as well as her prior history of chronic diastolic CHF that some of this is pulmonary edema40 mg of Lasix now and follow for response -Suspect some is hypoventilationwhether its still due to right hemidiaphragm insufficiency, I doubtbut it is possible. I suspect more that she has either significant RONEY, or some degree of OHSand her current weakened state is accentuating her poor respiratory mechanicscheck ABG, support on BiPAP for now. -While some of her distress started shortly after eating, I doubt there is any aspiration pneumonia of significance, given that she apparently had fairly minimal p.o. intake, has symmetric lung sounds, and most aspiration events resolved without antibioticsbut certainly some degree of aspiration could have also set off some of her respiratory distresscontinue supportive care with BiPAP, has nebulizers already ordered -Continue to follow closely, may need return to ICUfor now we will change status to PCU
[2022-01-07 19:09] LABS: Base Excess ABG 1.7 mEq/L (-9-1.8); HCO3 ABG 27 mmol/L (19-24); Oxygen Saturation ABG 98.6 % (90-95); PCO2 ABG 42 mmHg (35-46); PO2 ABG 82 mmHg (80-95); pH ABG 7.41 (7.35-7.45)
[2022-01-07 19:13] LABS: Allen Test POS (Pos)
[2022-01-07] MEDS: allopurinoL 100 MG TAB PO SCH (19:41)
[2022-01-07] MEDS: ATORVASTATIN 40 MG TAB PO SCH (19:43)
[2022-01-07] MEDS: LORATADINE 10 MG TAB PO SCH (19:45)
[2022-01-07] MEDS: SENNA 8.6 MG TAB PO SCH (19:47)
[2022-01-07] MEDS: LANTUS PER UNIT CHARGE SQ SCH (19:56)
[2022-01-08] MEDS: LORazepam 0.5 MG TAB PO PRN ×3 (00:23→23:59)
[2022-01-08] MEDS: oxyCODONE HCL IR 5 MG TAB (IMMEDIATE RELEASE) PO PRN ×4 (03:43→23:41)
[2022-01-08] MEDS: ACETAMINOPHEN 500 MG TAB PO SCH ×3 (04:43→22:29)
[2022-01-08] MEDS: HEPARIN SOD 5,000 UNIT/0.5 ML VIAL SC SCH ×3 (04:43→22:30)
[2022-01-08 06:22] LABS: Basophils # (auto) 0.03 K/uL (0-0.2); Basophils % (auto) 0.3 %; Eosinophils # (auto) 0.24 K/uL (0-0.50); Eosinophils % (auto) 2.3 %; Hematocrit (blood only) 32.1 % (34.1-44.9); Hemoglobin 10.1 g/dl (12.0-16.0); Immature Granulocytes # (auto) 0.04 K/uL (0.00-0.02); Immature Granulocytes % (auto) 0.4 %; Lymphocytes # (auto) 1.79 K/uL (1.2-3.4); Mean Corpuscular Hemoglobin 27.4 pg (25.0-34.0); Mean Corpuscular Hgb Conc 31.5 g/dL (32.0-36.0); Mean Platelet Volume 9.8 fL (9.4-12.3); Monocytes % (auto) 10.5 %; Neutrophils # (auto) 7.31 K/uL (1.4-6.5); Neutrophils % (auto) 69.5 %; Platelet Count 304 K/uL (130-400); RDW Coefficient of Variation 13.8 % (11.5-14.5); Red Blood Count 3.69 M/uL (3.93-5.22); White Blood Count 10.51 K/ul (4.8-10.8)
--- NOTE | 2022-01-08 07:00 | Orthopedic Progress Note ---
Date of Service January 08, 2022 Assessment & Plan (1) Status post reverse total replacement of right shoulder: Overall she is improving. She is on nasal cannula. We will try to wean her from the oxygen before discharged home. Her shoulder is doing well. She is orthopedically stable for discharge when medically ready. We will transfer her to the telemetry unit. Radha Celaya was seen and examined at bedside this morning. Overall she seems improved. She is off the BiPAP machine and is on nasal cannula. Her oxygen saturations remain above 90%. She is not having any pain in the right shoulder. She has no other complaints.. Review of Systems All systems reviewed & are unremarkable except as noted in HPI & below. Physical Exam On physical examination the right shoulder, the dressing is clean and dry. She has active motion of her hand and her wrist. She is now wearing her sling as instructed.. Results & Data Results & Data Laboratory Results . Diagnostic Findings . PG Care Time/CCT Total # of Minutes Spent Total Time Spent with Patient: Total time spent is greater than 50% in coordination of care (as documented) at patient's floor/unit and/or counseling patient: Coding Level of Care Code 01173 Post Operative Follow-Up Diagnoses Status post reverse total replacement of right shoulder Z96.611
[2022-01-08] MEDS: DICLOFENAC SOD 1% GEL 100 GM TUBE EXT PRN ×3 (07:30→23:46)
[2022-01-08] MEDS: FUROSEMIDE 40 MG TAB PO SCH (07:31)
[2022-01-08] MEDS: LOSARTAN POTASSIUM 50 MG TAB PO SCH (07:31)
[2022-01-08] MEDS: FEXOFENADINE HCL 180 MG TAB PO SCH (07:31)
[2022-01-08] MEDS: PANTOprazole 40 MG TAB PO SCH (07:31)
[2022-01-08] MEDS: METOPROLOL TARTRATE 25 MG TAB PO SCH (07:31)
[2022-01-08] MEDS: MULTIVITAMIN TAB PO SCH (07:31)
[2022-01-08] MEDS: ESCITALOPRAM OXALATE 10 MG TAB PO SCH (07:32)
[2022-01-08] MEDS: buPROPion SR 100 MG TABCR PO SCH (07:32)
[2022-01-08] MEDS: ASPIRIN 81 MG ECTAB PO SCH (07:32)
[2022-01-08] MEDS: DOCUSATE SODIUM 100 MG CAP PO SCH ×2 (07:36→20:01)
[2022-01-08] MEDS: INSULIN ASPART PER UNIT SC SCH ×4 (07:36→20:20)
[2022-01-08 07:42] LABS: BUN Creatinine Ratio 27.9 (10-20); Calcium 9.2 mg/dl (8.5-10.1); Creatinine Clr Calc Pharmacy 79.7 ml/min; Est GFR (African American) 78.2 ml/min; Est GFR (Non-African American) 67.5 ml/min; Potassium 4.4 mmol/L (3.5-5.1)
[2022-01-08 09:08] LABS: Magnesium 1.6 mg/dl (1.7-2.4)
[2022-01-08] MEDS ORDERED: LANTUS PER UNIT CHARGE SQ ONE (09:30)
--- NOTE | 2022-01-08 10:05 | Hospitalist Progress Note ---
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 Capellan Postop management/DVT prophylaxis/pain control per primary orthopedic team, surgical site appears well-healing without superimposed infection/acute concerns -Orthopedics has cleared pt for discharge pending medical stability (3) Chronic diastolic heart failure: Plan: History of CHF and Takotsubo's, did have cardiac clearance prior to surgical intervention of her shoulder Continue metoprolol, aspirin, statin, losartan Continue home furosemide 40 mg PO daily -Pt does not appear acutely hypervolemic on exam- will provide Lasix if pt becomes hypoxic or dyspneic -Previous ARGELIA has resolved, Cr back at baseline (4) Diabetes: Plan: Pharmacy glycemic management following Continue basal/bolus insulin Glucose checks AC/at bedtime, goal BSG [id number] Home metformin held (5) Hypertension: Plan: Continue losartan, metoprolol BP stable (6) Morbid obesity with BMI of 50.0-59.9, adult: (7) Depression: Plan: Continues on Geodon, Wellbutrin and Lexapro Admission and Anticipated Discharge Date Admission Date: January 06, 2022 Supervising Physician Co-Signing Physician Notes I personally examined the patient and verified all quintero points of history and exam, discussed case, and agree with decision making with Dr Nuno. Breathing feels okay. Is a bit more confused today. Vitals noted, in general she is awake and alert but somewhat disorientedshe seems to be aware of why she is here, but otherwise circumstantially is a bit easily confused. Breathing unlabored no accessory muscle use, 91% on room air whenever I see her. No accessory muscle use no conversational dyspnea. No pallor or icterus or focal neurodeficits. Right shoulder dressed. Respiratory distressimprovingprobably a combination of acute HFpEF as well as hypoventilationwhich may have been hemidiaphragm paralysis, elements of RONEY/OHS, or both. Improving. Continue current care. Appears would definitely need some sort of nighttime pressure support (such as BiPAP) ongoing, definitely appears to need short-term rehab. DVT prophylaxisHeparin subcu Subjective Pt reported struggling to breathe on evaluation this morning. After the nasal cannula was properly placed, she reported improvement in her breathing and felt well. States her breathing is improved from the previous day but she does not want to use the BIPAP as it is uncomfortable for her. Denies other acute complaints. Denies shoulder pain at operative site. Review of Systems Review of Systems: Per subjective Physical Exam Physical Exam: General: A&Ox3. NAD. Cooperative. Nasal cannula in place HEENT: Atraumatic, normocephalic. Pupils equal and reactive to light Pulm: Mildly coarse, scattered end expiratory wheezes, no crackles/rales appreciated. Symmetrical chest rise. No increase in work of breathing. No respiratory distress. Cardiac: RRR, soft systolic murmur. Radial pulses intact and symmetrical. Abdominal: Nontender, nondistended, soft. BS present. Extremities: Right shoulder surgical dressing intact, C/D/I. No surrounding erythema/warmth/purulence. Appropriately tender overlying dressing. Sensation of soft touch intact in fingertips bilaterally, cattle dipper strength and elbow flexion 5/5 bilaterally. Cap refill brisk, radial pulse intact bilaterally. Trace edema of the hands bilaterally. Lower extremities with trace edema bilaterally, sensation intact, PT pulses intact. Results & Data Results & Data ([facility]) Vital Signs (Past 12 Hours) Vital Signs Temp Pulse Resp BP BP Pulse Ox O2 Del Method 01/08/22 07:42 191/97 H 01/08/22 07:00 36.8 C 90 20 95 Nasal Cannula 01/08/22 08:00 Nasal Cannula 01/08/22 05:30 98 H 18 96 01/08/22 05:20 98 H 19 96 01/08/22 05:10 100 H 20 96 01/08/22 05:00 101 H 19 95 01/08/22 04:50 106 H 20 96 01/08/22 04:40 105 H 31 H 96 01/08/22 04:30 100 H 25 H 95 01/08/22 04:20 109 H 29 H 93 01/08/22 04:00 106 H 26 H 92 01/08/22 03:50 106 H 24 96 01/08/22 03:40 102 H 21 95 01/08/22 03:31 111 H 22 94 01/08/22 03:20 112 H 15 01/08/22 03:10 107 H 21 97 01/08/22 03:08 169/94 H 01/08/22 03:08 103 H 22 95 01/08/22 03:07 172/88 H 01/08/22 03:07 105 H 27 H 97 01/08/22 03:00 107 H 18 96 01/08/22 02:50 99 H 20 95 01/08/22 02:40 101 H 19 96 01/08/22 02:30 102 H 18 96 01/08/22 02:20 104 H 20 95 01/08/22 02:10 106 H 19 95 01/08/22 03:06 36.8 C 169/94 H 01/08/22 02:28 103 H 96 01/08/22 02:00 108 H 24 95 01/08/22 01:50 104 H 23 96 01/08/22 01:40 102 H 20 96 01/08/22 01:30 102 H 21 96 01/08/22 01:20 106 H 23 95 01/08/22 01:10 103 H 24 95 01/08/22 01:00 105 H 26 H 95 01/08/22 00:50 103 H 19 97 01/08/22 00:40 102 H 20 100 01/08/22 00:30 106 H 22 94 01/08/22 00:20 105 H 24 95 01/08/22 00:10 108 H 31 H 96 01/08/22 00:00 111 H 20 95 01/07/22 23:50 112 H 23 95 01/07/22 23:40 103 H 20 95 01/07/22 23:30 106 H 20 96 01/07/22 23:26 105 H 21 96 01/07/22 23:26 142/89 H 01/08/22 00:00 142/89 H 01/07/22 23:29 112 H 01/07/22 23:20 102 H 19 96 01/07/22 23:10 102 H 18 95 01/07/22 23:00 104 H 16 95 01/07/22 22:50 105 H 17 91 10/12/22 22:40 105 H 16 92 01/07/22 22:30 108 H 28 H 95 01/07/22 22:20 111 H 31 H 92 01/07/22 22:10 109 H 17 96 01/07/22 23:27 36.8 C O2 Flow Rate 01/08/22 07:42 01/08/22 07:00 2 01/08/22 08:00 2 01/08/22 05:30 01/08/22 05:20 01/08/22 05:10 01/08/22 05:00 01/08/22 04:50 01/08/22 04:40 01/08/22 04:30 01/08/22 04:20 01/08/22 04:00 01/08/22 03:50 01/08/22 03:40 01/08/22 03:31 01/08/22 03:20 01/08/22 03:10 01/08/22 03:08 01/08/22 03:08 01/08/22 03:07 01/08/22 03:07 01/08/22 03:00 01/08/22 02:50 01/08/22 02:40 01/08/22 02:30 01/08/22 02:20 01/08/22 02:10 01/08/22 03:06 01/08/22 02:28 01/08/22 02:00 01/08/22 01:50 01/08/22 01:40 01/08/22 01:30 01/08/22 01:20 01/08/22 01:10 01/08/22 01:00 01/08/22 00:50 01/08/22 00:40 01/08/22 00:30 01/08/22 00:20 01/08/22 00:10 01/08/22 00:00 01/07/22 23:50 01/07/22 23:40 01/07/22 23:30 01/07/22 23:26 01/07/22 23:26 01/08/22 00:00 01/07/22 23:29 01/07/22 23:20 01/07/22 23:10 01/07/22 23:00 01/07/22 22:50 01/07/22 22:40 01/07/22 22:30 01/07/22 22:20 01/07/22 22:10 01/07/22 23:27 Resident Activity Tracking Resident Involvement: Resident Care Provided Care Provided: Adult Hospital Medicine
[2022-01-08] MEDS: MAGNESIUM SULFATE / D5W 1 GM/100 ML BAG IV SCH ×4 (10:23→16:10)
--- NOTE | 2022-01-08 16:22 | Billing Data ---
Date of Service January 08, 2022 Coding Level of Care Code 19354 Subseq Hosp Care Lvl 3
[2022-01-08] MEDS: SENNA 8.6 MG TAB PO SCH (19:58)
[2022-01-08] MEDS: LORATADINE 10 MG TAB PO SCH (19:58)
[2022-01-08] MEDS: ATORVASTATIN 40 MG TAB PO SCH (19:59)
[2022-01-08] MEDS: allopurinoL 100 MG TAB PO SCH (19:59)
[2022-01-08] MEDS: LANTUS PER UNIT CHARGE SQ SCH (20:20)
[2022-01-09] MEDS: oxyCODONE HCL IR 5 MG TAB (IMMEDIATE RELEASE) PO PRN ×3 (05:09→20:33)
[2022-01-09] MEDS: ACETAMINOPHEN 500 MG TAB PO SCH ×3 (05:55→21:51)
[2022-01-09] MEDS: HEPARIN SOD 5,000 UNIT/0.5 ML VIAL SC SCH ×3 (05:56→21:50)
--- NOTE | 2022-01-09 06:53 | Orthopedic Progress Note ---
Date of Service January 09, 2022 Assessment & Plan (1) Status post reverse total replacement of right shoulder: She is doing well with regards to her shoulder. She was also off the oxygen. Most recently, her oxygen saturations were 91% on room air. She would very much like to go home today. I think it is reasonable that she could be discharged home later today if its okay with the hospitalist. Full orthopedic discharge instructions are in the discharge summary. She will follow-up with orthopedics in 2 weeks. Radha Celaya was seen and examined at bedside this morning. Overall she is doing much better. She is off oxygen completely when I went in the room. She was resting comfortably. She has no complaints.. Review of Systems All systems reviewed & are unremarkable except as noted in HPI & below. Physical Exam On physical examination of the right shoulder, the dressing is clean and dry. She has active motion of her hand and her wrist. She is wearing her sling as instructed.. Results & Data Results & Data Laboratory Results . Diagnostic Findings . PG Care Time/CCT Total # of Minutes Spent Total Time Spent with Patient: Total time spent is greater than 50% in coordination of care (as documented) at patient's floor/unit and/or counseling patient: Coding Level of Care Code 31748 Post Operative Follow-Up Diagnoses Status post reverse total replacement of right shoulder Z96.611
[2022-01-09 07:59] LABS: Hematocrit (blood only) 34.8 % (34.1-44.9); Hemoglobin 11.1 g/dl (12.0-16.0); Mean Corpuscular Hemoglobin 27.6 pg (25.0-34.0); Mean Corpuscular Hgb Conc 31.9 g/dL (32.0-36.0); Mean Corpuscular Volume 86.6 fL (80.0-100.0); Mean Platelet Volume 9.9 fL (9.4-12.3); Platelet Count 321 K/uL (130-400); RDW Coefficient of Variation 13.7 % (11.5-14.5); Red Blood Count 4.02 M/uL (3.93-5.22)
[2022-01-09] MEDS: FEXOFENADINE HCL 180 MG TAB PO SCH (08:03)
[2022-01-09] MEDS: LOSARTAN POTASSIUM 50 MG TAB PO SCH (08:03)
[2022-01-09] MEDS: PANTOprazole 40 MG TAB PO SCH (08:03)
[2022-01-09] MEDS: ASPIRIN 81 MG ECTAB PO SCH (08:03)
[2022-01-09] MEDS: MULTIVITAMIN TAB PO SCH (08:04)
[2022-01-09] MEDS: ESCITALOPRAM OXALATE 10 MG TAB PO SCH (08:04)
[2022-01-09] MEDS: METOPROLOL TARTRATE 25 MG TAB PO SCH (08:04)
[2022-01-09] MEDS: DOCUSATE SODIUM 100 MG CAP PO SCH ×2 (08:04→20:28)
[2022-01-09] MEDS: FUROSEMIDE 40 MG TAB PO SCH (08:04)
[2022-01-09] MEDS: buPROPion SR 100 MG TABCR PO SCH (08:04)
[2022-01-09] MEDS: INSULIN ASPART PER UNIT SC SCH ×4 (08:05→20:48)
[2022-01-09 08:32] LABS: BUN Creatinine Ratio 20.6 (10-20); Calcium 9.9 mg/dl (8.5-10.1); Creatinine Clr Calc Pharmacy 100.3 ml/min; Est GFR (African American) 101.3 ml/min; Est GFR (Non-African American) 87.4 ml/min; Magnesium 1.7 mg/dl (1.7-2.4); Potassium 3.9 mmol/L (3.5-5.1)
[2022-01-09] MEDS ORDERED: LANTUS PER UNIT CHARGE SQ SCH (09:00)
--- NOTE | 2022-01-09 13:12 | Pharmacy Report ---
Pharmacy Glycemic Short Note 2 - Date of Service January 09, 2022 - Glycemic Short BSG Results (Last 24 hours): 01/08/22 01/08/22 01/09/22 14:42 20:07 07:26 Glucose 147 H POC Glucose 198 H 159 H 01/09/22 01/09/22 08:07 11:42 Glucose POC Glucose 173 H 140 H OUTPATIENT ANTIDIABETIC REGIMEN: * metformin 1000 mg bid * A1c 7.4% 09/19/21 ASSESSMENT: 01/09 * Patient received total 32 units of insulin yesterday; 15 units basal + 17 units bolus. * BSGs yesterday were [phone] mg/dl. Fasting BSG today was 173 mg/dl. * Basal insulin dose increased to 20 units this morning for better control of fasting BSG. * Novolog parameters tightened slightly more in the AM but continued the same looser parameters for the rest of the day. 01/07 * Anticipated downgrade from ICU status today. Steroid effects from dexamethasone administered on 01/05 likely dissipated at this time * AM fasting BSG with notable trend down from yesterday, plus steroid effects dissipated. Will decrease Lantus slightly * Will loosen Novolog to a regimen which is slightly tighter than a weight-based moderate stress estimate 01/06 * Patient transferred to ICU yesterday 2nd respiratory concerns, possibly 2nd temporary phrenic nerve paralysis - BiPAP initiated but now transitioned to NC and downgrade anticipated * BSG's were persistently elevated yesterday, likely 2nd surgery and dexamethasone x1. Both of these will be decreasing in effect today. Therefore will not increase basal insulin. Will also transition over to Lantus as basal insulin now that steroids have stopped * Novolog still at tight parameters for now and will keep as-is 2nd hyperglycemia, through lunch. Will loosen slightly starting with dinner, as dexamethasone effects may start to wear off 01/05 * 71 year old now s/p R total shoulder arthroplasty, POD 0. Pharmacy consulted for glycemic management. Patient only on metformin at home. Received PO steroids preop and also dexamethasone 4 IV x 1 intraoperatively, therefore anticipate steroid induced hyperglycemia. * BSGs this morning in 150s - plan to start novolog with stress of 2/3 dosing for now. May consider adding NPH if BSGs trending up >180 PLAN FOR INPATIENT GLYCEMIC CONTROL: * Hold outpatient oral diabetes medications * Basal insulin * Lantus 20 units SC QAM * Bolus insulin * NovoLog per scale ACHS or Q6hrs while NPO * Goal Range: Low 110 mg/dL - High 140 mg/dL * Correction Factor: 20 mg/dL/unit with breakfast, 30 mg/dl/unit with lunch, dinner and HS * Nutritional / Prandial insulin per carb ratio of 1 unit per 7 grams CHO co nsumed with breakfast, 1 unit per 9 gram CHO with lunch, dinner and HS
--- NOTE | 2022-01-09 13:14 | Hospitalist Progress Note ---
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 She will very likely need repeat sleep study as outpatient and CPAP access Deconditioning -Given her significant debility (3 person assist per PT/OT evaluation) in the wake of recent critical illness, she would benefit from inpatient rehab as there is a considerable safety concern with discharge home at this time -Case management currently seeking placement (2) Status post reverse total replacement of right shoulder: Plan: Performed 01/05/[address] Capellan Postop management/DVT prophylaxis/pain control per primary orthopedic team, surgical site appears well-healing without superimposed infection/acute concerns -Orthopedics has cleared pt for discharge pending medical stability (3) Chronic diastolic heart failure: Plan: History of CHF and Takotsubo's, did have cardiac clearance prior to surgical intervention of her shoulder Continue metoprolol, aspirin, statin, losartan Continue home furosemide 40 mg PO daily -Pt does not appear acutely hypervolemic on exam- will provide Lasix if pt becomes hypoxic or dyspneic -Previous ARGELIA has resolved, Cr back at baseline (4) Diabetes: Plan: Pharmacy glycemic management following Continue basal/bolus insulin Glucose checks AC/at bedtime, goal BSG [id number] Home metformin held (5) Hypertension: Plan: Continue losartan, metoprolol BP stable (6) Morbid obesity with BMI of 50.0-59.9, adult: (7) Depression: Plan: Continues on Geodon, Wellbutrin and Lexapro Admission and Anticipated Discharge Date Admission Date: January 06, 2022 Supervising Physician Co-Signing Physician Notes I personally examined the patient and verified all quintero points of history and exam, discussed case, and agree with decision making with Dr Nuno. Breathing much better. For rehab. Vitals noted, in general she is awake and alert oriented in no distress. Breathing unlabored no accessory muscle use, 91% on room air whenever I see her. No accessory muscle use no conversational dyspnea. No pallor or icterus or focal neurodeficits. Right shoulder dressed. Respiratory distressimprovingprobably a combination of acute HFpEF as well as hypoventilationwhich, given rate of improvement, is more likely weakness and temporary paralysis of hemidiaphragm, with underlying OSAfar more likely than OHS. Improving. Continue current care. Appears would definitely need some sort of nighttime pressure support (such as CPAP/BiPAP) ongoingbut without clear evidence of chronic hypoventilation, would not be AutoSet the substrate on the hospitalrather will likely need a sleep study, definitely appears to need short-term rehab. DVT prophylaxisHeparin subcu Subjective No acute events overnight. Pt reports sleeping well last night without BIPAP. Denies dyspnea, states her breathing has much improved. She would like to go home today and does not want to do rehab. States she has plenty of support at home with multiple family members and caregivers who come a few times a week. Denies any acute complaints. Pt does not have CPAP at home. Review of Systems Review of Systems: Per subjective Physical Exam Physical Exam: General: NAD. Cooperative. Nasal cannula in place HEENT: Atraumatic, normocephalic. Pupils equal and reactive to light Pulm: Mildly coarse, scattered end expiratory wheezes, no crackles/rales appreciated. Symmetrical chest rise. No increase in work of breathing. No respiratory distress. Cardiac: RRR, soft systolic murmur. Radial pulses intact and symmetrical. Abdominal: Nontender, nondistended, soft Extremities: Right shoulder surgical dressing intact, C/D/I. No surrounding erythema/warmth/purulence. Appropriately tender overlying dressing. Sensation of soft touch intact in fingertips bilaterally, pharmacy informaticist strength and elbow flexion 5/5 bilaterally. Cap refill brisk, radial pulse intact bilaterally. Trace edema of the hands bilaterally. Lower extremities with trace edema bilaterally, sensation intact, posterior tibial pulses intact. Results & Data Results & Data ([facility]) Vital Signs (Past 12 Hours) Vital Signs Temp Pulse Pulse Resp BP Pulse Ox O2 Del Method 01/09/22 12:08 36.6 C 85 20 112/72 95 Room Air 01/09/22 10:41 97 H 01/09/22 10:26 Room Air 01/09/22 07:29 36.8 C 109 H 20 179/99 H 95 Room Air 01/09/22 03:12 36.5 C 118 H 22 91 Resident Activity Tracking Resident Involvement: Resident Care Provided Care Provided: Adult Hospital Medicine
[2022-01-09] MEDS: LORazepam 0.5 MG TAB PO PRN (13:44)
--- NOTE | 2022-01-09 16:35 | Billing Data ---
Date of Service January 09, 2022 Coding Level of Care Code 78571 Subseq Hosp Care Lvl 2
--- NOTE | 2022-01-09 16:35 | Billing Data ---
Date of Service January 09, 2022 Coding Level of Care Code 74527 Subseq Hosp Care Lvl 2
[2022-01-09] MEDS: LORATADINE 10 MG TAB PO SCH (20:29)
[2022-01-09] MEDS: SENNA 8.6 MG TAB PO SCH (20:29)
[2022-01-09] MEDS: allopurinoL 100 MG TAB PO SCH (20:30)
[2022-01-09] MEDS: ATORVASTATIN 40 MG TAB PO SCH (20:30)
[2022-01-10] MEDS: DICLOFENAC SOD 1% GEL 100 GM TUBE EXT PRN (01:18)
[2022-01-10] MEDS: oxyCODONE HCL IR 5 MG TAB (IMMEDIATE RELEASE) PO PRN ×3 (01:25→17:32)
[2022-01-10] MEDS: LORazepam 0.5 MG TAB PO PRN (04:18)
[2022-01-10] MEDS: ALBUT/IPRATROP 3MG/0.5MG NEB 3 ML VIAL NEB PRN (05:31)
[2022-01-10] MEDS: HEPARIN SOD 5,000 UNIT/0.5 ML VIAL SC SCH ×3 (05:55→21:40)
[2022-01-10] MEDS: ACETAMINOPHEN 500 MG TAB PO SCH ×3 (05:57→21:56)
[2022-01-10 06:39] LABS: Hematocrit (blood only) 35.5 % (34.1-44.9); Hemoglobin 11.4 g/dl (12.0-16.0); Mean Corpuscular Hemoglobin 27.8 pg (25.0-34.0); Mean Corpuscular Hgb Conc 32.1 g/dL (32.0-36.0); Mean Corpuscular Volume 86.6 fL (80.0-100.0); Mean Platelet Volume 10.1 fL (9.4-12.3); Nucleated RBC # (auto) 0.02 K/uL (0-0); Nucleated RBC % (auto) 0.2 %; Platelet Count 360 K/uL (130-400); RDW Coefficient of Variation 14.1 % (11.5-14.5); RDW Standard Deviation 43.5 fL (36.4-46.3); White Blood Count 12.04 K/ul (4.8-10.8)
[2022-01-10 07:39] LABS: Anion Gap 12 (3-11); BUN Creatinine Ratio 15.9 (10-20); Blood Urea Nitrogen 13 mg/dl (6-23); Calcium 9.8 mg/dl (8.5-10.1); Carbon Dioxide 27 mmol/L (21-32); Chloride 99 mmol/L (98-107); Creatinine Clr Calc Pharmacy 81.9 ml/min; Est GFR (African American) 82.9 ml/min; Est GFR (Non-African American) 71.5 ml/min; Glucose 144 mg/dl (70-99(Fasting)); Sodium 138 mmol/L (136-145)
[2022-01-10] MEDS: PANTOprazole 40 MG TAB PO SCH (08:00)
[2022-01-10] MEDS: ASPIRIN 81 MG ECTAB PO SCH (08:00)
[2022-01-10] MEDS: MULTIVITAMIN TAB PO SCH (08:00)
[2022-01-10] MEDS: FEXOFENADINE HCL 180 MG TAB PO SCH (08:00)
[2022-01-10] MEDS: ESCITALOPRAM OXALATE 10 MG TAB PO SCH (08:01)
[2022-01-10] MEDS: buPROPion SR 100 MG TABCR PO SCH (08:01)
[2022-01-10] MEDS: DOCUSATE SODIUM 100 MG CAP PO SCH ×2 (08:03→21:05)
[2022-01-10] MEDS: METOPROLOL TARTRATE 25 MG TAB PO SCH (08:03)
[2022-01-10] MEDS: LOSARTAN POTASSIUM 50 MG TAB PO SCH (08:03)
[2022-01-10] MEDS: FUROSEMIDE 40 MG TAB PO SCH (08:03)
[2022-01-10] MEDS: LANTUS PER UNIT CHARGE SQ SCH (08:18)
[2022-01-10] MEDS: INSULIN ASPART PER UNIT SC SCH ×5 (08:18→21:39)
--- NOTE | 2022-01-10 09:16 | Orthopedic Progress Note ---
Date of Service January 10, 2022 Assessment & Plan (1) Status post reverse total replacement of right shoulder: With regards to her right shoulder she is doing fairly well. She not having much pain. We are awaiting discharge to rehab facility on Wednesday. Regards to her abdominal pains, I notified the nurse and had her come to the room. I asked the nurse to contact the medicine physician who is currently following her to help address some of these abdominal issues. Radha Celaya was seen and examined at bedside this morning. Her shoulder is doing well but she was really struggling with some abdominal pains and discomfort. She was not sure if she had to use the bathroom or if she was nauseous. She was really struggling when I entered the room.. Review of Systems All systems reviewed & are unremarkable except as noted in HPI & below. Physical Exam On physical examination the right shoulder, the dressing is clean and dry she has motion of her hand. She has taken her sling off. She was leaning over and rather comfortable in a chair. She was complaining of diffuse abdominal pains.. Results & Data Results & Data Laboratory Results . Diagnostic Findings . PG Care Time/CCT Total # of Minutes Spent Total Time Spent with Patient: Total time spent is greater than 50% in coordination of care (as documented) at patient's floor/unit and/or counseling patient: Coding Level of Care Code 25004 Post Operative Follow-Up Diagnoses Status post reverse total replacement of right shoulder Z96.611
--- NOTE | 2022-01-10 10:20 | Hospitalist Progress Note ---
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 She will very likely need repeat sleep study as outpatient and CPAP access Deconditioning -Given her significant debility (3 person assist per PT/OT evaluation) in the wake of recent critical illness, she would benefit from inpatient rehab as there is a considerable safety concern with discharge home at this time -Case management currently seeking placement Acute abdominal pain -Suspect this is secondary to constipation/stool burden, I do not suspect obstruction based on exam -KUB ordered -Increased bowel regimen- Miralax 34 gm now (2) Status post reverse total replacement of right shoulder: Plan: Performed 01/05/[address] Capellan Postop management/DVT prophylaxis/pain control per primary orthopedic team, surgical site appears well-healing without superimposed infection/acute concerns -Orthopedics has cleared pt for discharge pending medical stability (3) Chronic diastolic heart failure: Plan: History of CHF and Takotsubo's, did have cardiac clearance prior to surgical intervention of her shoulder Continue metoprolol, aspirin, statin, losartan Continue home Lasix 40 mg PO daily -Pt does not appear acutely hypervolemic on exam- will provide Lasix PRN if pt becomes hypoxic or dyspneic -Previous ARGELIA has resolved, Cr back at baseline (4) Diabetes: Plan: Pharmacy glycemic management following Continue basal/bolus insulin Glucose checks AC/at bedtime, goal BSG [id number] Home metformin held (5) Hypertension: Plan: Continue losartan, metoprolol BP stable (6) Morbid obesity with BMI of 50.0-59.9, adult: (7) Depression: Plan: Continues on Geodon, Wellbutrin and Lexapro Admission and Anticipated Discharge Date Admission Date: January 06, 2022 Supervising Physician Co-Signing Physician Notes I personally examined the patient and verified all quintero points of history and exam, discussed case, and agree with decision making with Dr Nuno. Breathing feels okay. Abdominal pain feels better. Vitals noted, in general she is awake and alert oriented in no distress. Breathing unlabored no accessory muscle use good effort. Abdomen is soft protuberant minimal left lower quadrant tenderness without guarding rebound or rigidity. Gentle colon stimulation OMT done. Skin without rashes, pallor, icterus. Respiratory distressimprovingprobably a combination of acute HFpEF as well as hypoventilationwhich, given rate of improvement, is more likely weakness and temporary paralysis of hemidiaphragm, with underlying OSAfar more likely than OHS. Improving. Stable for discharge in this regardanticipating going to SNF. Appears would definitely need some sort of nighttime pressure support (such as CPAP/BiPAP) ongoingbut without clear evidence of chronic hypoventilation, would not be AutoSet the substrate on the hospitalrather will likely need a sleep study, definitely appears to need short-term rehab. Abdominal painsuspect constipation related. DVT prophylaxisHeparin subcu Subjective No acute events overnight. This morning pt did report some abdominal pain- describes as diffuse, achy, mild-moderate severity, associated nausea without emesis. States she thinks she needs to have a bowel movement. Denies any difficulty with breathing, no worsening of R shoulder pain Review of Systems Review of Systems: Per subjective Physical Exam Physical Exam: General: NAD. Cooperative. Nasal cannula in place HEENT: Atraumatic, normocephalic. Pupils equal and reactive to light Pulm: Mildly coarse breath sounds, improved from day prior, no crackles/rales appreciated. Symmetrical chest rise. No increase in work of breathing. No respiratory distress. Cardiac: RRR, soft systolic murmur. Radial pulses intact and symmetrical. Abdominal: Soft, nontender, nondistended, no guarding or rebound Extremities: Right shoulder surgical dressing intact, C/D/I. No surrounding erythema/warmth/purulence. Appropriately tender overlying dressing. Sensation of soft touch intact in fingertips bilaterally, neurourologist strength and elbow flexion 5/5 bilaterally. Cap refill brisk, radial pulse intact bilaterally. Trace edema of the hands bilaterally. Lower extremities with trace edema bilaterally, sensation intact, posterior tibial pulses intact. Results & Data Results & Data ([facility]) Vital Signs (Past 12 Hours) Vital Signs Temp Pulse Pulse Pulse Resp BP Pulse Ox 01/10/22 07:27 36.8 C 97 H 20 151/88 H 95 01/10/22 05:31 105 H 22 97 01/10/22 04:19 36.7 C 97 H 20 176/99 H 96 01/09/22 22:20 94 H 01/09/22 22:18 37.1 C 93 H 20 153/92 H 96 O2 Del Method 01/10/22 07:27 Room Air 01/10/22 05:31 Room Air 01/10/22 04:19 Room Air 01/09/22 22:20 01/09/22 22:18 Room Air Resident Activity Tracking Resident Involvement: Resident Care Provided Care Provided: Adult Hospital Medicine
--- NOTE | 2022-01-10 11:17 | XRay Report ---
KUB HISTORY: Generalized abdominal pain. COMPARISON: None. FINDINGS: The bowel gas pattern is unremarkable. There are no dilated loops of small bowel to suggest an obstruction. No renal calculi. No ureteral calculi. Calcifications in the deep pelvis likely rep resent phleboliths. Tubal ligation clips are noted. Prior cholecystectomy. No pneumoperitoneum or pne umatosis. IMPRESSION: No evidence for bowel obstruction. ACT 112: Negative or not required by law. Electronically signed by: Mike Aquino M.D. 01/10/2022 11:16 AM
[2022-01-10] MEDS: POLYETHYLENE (MIRALAX) 17 GM PACK PO SCH ×2 (11:55→21:42)
--- NOTE | 2022-01-10 15:51 | Billing Data ---
Date of Service January 10, 2022 Coding Level of Care Code 26309 Subseq Hosp Care Lvl 2
[2022-01-10] MEDS: allopurinoL 100 MG TAB PO SCH (21:44)
[2022-01-10] MEDS: SENNA 8.6 MG TAB PO SCH (21:44)
[2022-01-10] MEDS: ATORVASTATIN 40 MG TAB PO SCH (21:45)
[2022-01-10] MEDS: LORATADINE 10 MG TAB PO SCH (21:45)
[2022-01-11] MEDS: oxyCODONE HCL IR 5 MG TAB (IMMEDIATE RELEASE) PO PRN ×4 (01:08→15:36)
[2022-01-11] MEDS: LORazepam 0.5 MG TAB PO PRN ×3 (04:40→20:59)
[2022-01-11] MEDS: ACETAMINOPHEN 500 MG TAB PO SCH ×3 (06:02→20:59)
[2022-01-11] MEDS: HEPARIN SOD 5,000 UNIT/0.5 ML VIAL SC SCH ×3 (06:02→20:56)
[2022-01-11 06:48] LABS: Hematocrit (blood only) 33.5 % (34.1-44.9); Hemoglobin 10.5 g/dl (12.0-16.0); Mean Corpuscular Hemoglobin 27.8 pg (25.0-34.0); Mean Corpuscular Hgb Conc 31.3 g/dL (32.0-36.0); Mean Corpuscular Volume 88.6 fL (80.0-100.0); Mean Platelet Volume 9.7 fL (9.4-12.3); Platelet Count 329 K/uL (130-400); RDW Coefficient of Variation 14.5 % (11.5-14.5); RDW Standard Deviation 45.1 fL (36.4-46.3); Red Blood Count 3.78 M/uL (3.93-5.22); White Blood Count 11.46 K/ul (4.8-10.8)
[2022-01-11 07:20] LABS: BUN Creatinine Ratio 18.3 (10-20); Calcium 9.4 mg/dl (8.5-10.1); Creatinine Clr Calc Pharmacy 81.2 ml/min; Est GFR (African American) 82.9 ml/min; Est GFR (Non-African American) 71.5 ml/min; Magnesium 1.5 mg/dl (1.7-2.4); Potassium 3.6 mmol/L (3.5-5.1)
[2022-01-11] MEDS: FUROSEMIDE 40 MG TAB PO SCH (08:37)
[2022-01-11] MEDS: PANTOprazole 40 MG TAB PO SCH (08:37)
[2022-01-11] MEDS: ASPIRIN 81 MG ECTAB PO SCH (08:37)
[2022-01-11] MEDS: METOPROLOL TARTRATE 25 MG TAB PO SCH (08:37)
[2022-01-11] MEDS: FEXOFENADINE HCL 180 MG TAB PO SCH (08:37)
[2022-01-11] MEDS: LOSARTAN POTASSIUM 50 MG TAB PO SCH (08:38)
[2022-01-11] MEDS: buPROPion SR 100 MG TABCR PO SCH (08:38)
[2022-01-11] MEDS: MULTIVITAMIN TAB PO SCH (08:38)
[2022-01-11] MEDS: ESCITALOPRAM OXALATE 10 MG TAB PO SCH (08:38)
[2022-01-11] MEDS: POLYETHYLENE (MIRALAX) 17 GM PACK PO SCH (08:41)
--- NOTE | 2022-01-11 08:44 | Orthopedic Progress Note ---
Date of Service January 11, 2022 Assessment & Plan (1) Status post reverse total replacement of right shoulder: Overall she continues to improve. She requested discharged home today. We will see with the hospitalist status. Her abdomen is feeling much better. She her oxygen saturations are 97% on room air. We will see how she does with physical therapy as well, if the hospitalist and the physical therapist feel that she is safe for discharged home then she can be discharged home later today. She is s cheduled to follow-up with orthopedics in 2 weeks. Radha Celaya was seen and examined at bedside this morning. She is doing much better medically. Her oxygen saturations are 97% on room air. She is little bit of soreness in the shoulder but is not too bad. She is requesting discharged home today.. Review of Systems All systems reviewed & are unremarkable except as noted in HPI & below. Physical Exam On physical examination the right shoulder, the dressing is clean and dry. She will be swelling in her hand. She is neurovascular intact.. Results & Data Results & Data Laboratory Results . Diagnostic Findings . PG Care Time/CCT Total # of Minutes Spent Total Time Spent with Patient: Total time spent is greater than 50% in coordination of care (as documented) at patient's floor/unit and/or counseling patient: Coding Level of Care Code 19637 Post Operative Follow-Up Diagnoses Status post reverse total replacement of right shoulder Z96.611
[2022-01-11] MEDS: DOCUSATE SODIUM 100 MG CAP PO SCH ×2 (08:55→20:58)
[2022-01-11] MEDS: INSULIN ASPART PER UNIT SC SCH ×4 (08:55→20:55)
[2022-01-11] MEDS: LANTUS PER UNIT CHARGE SQ SCH (08:55)
[2022-01-11] MEDS ORDERED: POLYETHYLENE (MIRALAX) 17 GM PACK PO SCH (09:00)
[2022-01-11] MEDS: MAGNESIUM SULFATE / D5W 1 GM/100 ML BAG IV SCH ×4 (09:56→15:36)
--- NOTE | 2022-01-11 10:50 | Hospitalist Progress Note ---
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 She will very likely need repeat sleep study as outpatient and CPAP access Deconditioning -Given her significant debility (3 person assist per PT/OT evaluation) in the wake of recent critical illness, she would benefit from inpatient rehab as there is a considerable safety concern with discharge home at this time -Case management currently seeking placement Acute abdominal pain -Suspect this was secondary to constipation/stool burden, I do not suspect obstruction based on exam -KUB 01/10- normal, no obstruction or stool burden -Pain has resolved as of 01/11 Pt is medically stable at present. However, as above, pt is at high risk of rehospitalization given her recent critical illness, uncontrolled RONEY as an obstacle to her respiratory stability, and considerable deconditioning/debility. She will require a repeat sleep study and CPAP/BIPAP setup as outpatient as soon as possible. She will also require extensive PT/OT and rehabilitation. She would benefit most from a stay in SNF as her current state does warrant regular 24/7 care. Hospitalist team will be signing off. (2) Status post reverse total replacement of right shoulder: Plan: Performed 01/05/[address] Capellan Postop management/DVT prophylaxis/pain control per primary orthopedic team, surgical site appears well-healing without superimposed infection/acute concerns -Medical stability has been achieved, disposition planning now per orthopedics primary team. (3) Chronic diastolic heart failure: Plan: History of CHF and Takotsubo's, did have cardiac clearance prior to surgical intervention of her shoulder Continue metoprolol, aspirin, statin, losartan Continue home Lasix 40 mg PO daily -Pt does not appear acutely hypervolemic on exam- will provide Lasix PRN if pt becomes hypoxic or dyspneic -Previous ARGELIA has resolved, Cr back at baseline (4) Diabetes: Plan: Pharmacy glycemic management following Continue basal/bolus insulin Glucose checks AC/at bedtime, goal BSG [id number] Home metformin held (5) Hypertension: Plan: Continue losartan, metoprolol BP stable (6) Morbid obesity with BMI of 50.0-59.9, adult: (7) Depression: Plan: Continues on Geodon, Wellbutrin and Lexapro Admission and Anticipated Discharge Date Admission Date: January 06, 2022 Supervising Physician Co-Signing Physician Notes I personally examined the patient and verified all quintero points of history and exam, discussed case, and agree with decision making with Dr Nuno. Breathing good. Wanted to go home, but realizes she is too weak for this to be viablewaiting on rehab. Notes that her left ankle hurtsvery common for her with arthritis, feels exactly like this. Vitals noted, in general she is awake and alert oriented in no distress. Chinyere athing unlabored no accessory muscle use good effort. Left ankle with narrowed joint space, somewhat tender along the joint lines, no effusion no erythema no fluctuance. Skin without rashes, pallor, icterus. Respiratory distressimprovingprobably a combination of acute HFpEF as well as hypoventilationwhich, given rate of improvement, is more likely weakness and temporary paralysis of hemidiaphragm, with underlying OSAfar more likely than OHS. Appears to be more or less at her baseline in this regard. Stable for discharge in this regardanticipating going to SNF. Appears would definitely need some sort of nighttime pressure support (such as CPAP/BiPAP) ongoingbut without clear evidence of chronic hypoventilation, does not appear something that we can set up on discharge, rather will likely need a sleep study, definitely appears to need short-term rehab. Ankle painagree with her and is likely arthritis related, she notes normally she uses ice at home, help to reposition her leg with an ice pack Abdominal painsuspect constipation related. Improved DVT prophylaxisHeparin subcu Medically stable, hospitalist team will sign off at this time, stable for discharge to a rehab/skilled facility. Please do not hesitate to call if we can be of further assistance. Subjective No acute events overnight. This morning pt reported resolution of her abdominal pain, states it was likely due to gas/constipation. Pt also voiced emphatic desire to go home today- she does not want to stay in the hospital and believes her home health services and caregiver schedule is sufficient for her safety at home. When I explained to her she is at high risk of rehospitalization and falls given her poorly controlled sleep apnea and debility, respectively, she states there is no way she will go to a jail. Otherwise denies acute complaints. Review of Systems Review of Systems: Per subjective Physical Exam Physical Exam: General: NAD. Cooperative HEENT: Atraumatic, normocephalic. Pupils equal and reactive to light Pulm: Mildly coarse breath sounds, improved from day prior, no crackles/rales appreciated. Symmetrical chest rise. No increase in work of breathing. No respiratory distress. Cardiac: RRR, soft systolic murmur. Radial pulses intact and symmetrical. Abdominal: Soft, nontender, nondistended, no guarding or rebound Extremities: Right shoulder surgical dressing intact, C/D/I. No surrounding erythema/warmth/purulence. Appropriately tender overlying dressing. Sensation of soft touch intact in fingertips bilaterally, sales incentive analyst strength and elbow flexion 5/5 bilaterally. Cap refill brisk, radial pulse intact bilaterally. No edema of the hands bilaterally. Lower extremities with trace edema bilaterally, sensation intact, posterior tibial pulses intact. Results & Data Results & Data ([facility]) Vital Signs (Past 12 Hours) Vital Signs Temp Pulse Pulse Resp BP Pulse Ox O2 Del Method 01/11/22 07:00 Room Air 01/11/22 08:02 36.8 C 101 H 20 127/75 97 Room Air 01/11/22 02:56 36.4 C L 87 20 129/70 95 Room Air 01/11/22 00:41 79 Resident Activity Tracking Resident Involvement: Resident Care Provided Care Provided: Adult Hospital Medicine
--- NOTE | 2022-01-11 15:35 | Billing Data ---
Date of Service January 11, 2022 Coding Level of Care Code 79594 Subseq Hosp Care Lvl 2
[2022-01-11] MEDS: ATORVASTATIN 40 MG TAB PO SCH (20:56)
[2022-01-11] MEDS: SENNA 8.6 MG TAB PO SCH (20:57)
[2022-01-11] MEDS: LORATADINE 10 MG TAB PO SCH (20:57)
[2022-01-11] MEDS: allopurinoL 100 MG TAB PO SCH (20:59)
[2022-01-12] MEDS: oxyCODONE HCL IR 5 MG TAB (IMMEDIATE RELEASE) PO PRN ×4 (00:04→19:46)
[2022-01-12] MEDS: ACETAMINOPHEN 500 MG TAB PO SCH ×3 (05:26→22:06)
[2022-01-12] MEDS: HEPARIN SOD 5,000 UNIT/0.5 ML VIAL SC SCH ×3 (05:27→19:49)
[2022-01-12 06:18] LABS: Hemoglobin 10.3 g/dl (12.0-16.0); Mean Corpuscular Hemoglobin 27.5 pg (25.0-34.0); Mean Corpuscular Hgb Conc 31.2 g/dL (32.0-36.0); Mean Corpuscular Volume 88.2 fL (80.0-100.0); Mean Platelet Volume 9.5 fL (9.4-12.3); Platelet Count 330 K/uL (130-400); RDW Coefficient of Variation 14.6 % (11.5-14.5); Red Blood Count 3.74 M/uL (3.93-5.22); White Blood Count 10.93 K/ul (4.8-10.8)
[2022-01-12 06:43] LABS: BUN Creatinine Ratio 18.6 (10-20); Calcium 9.1 mg/dl (8.5-10.1); Creatinine Clr Calc Pharmacy 68.7 ml/min; Est GFR (African American) 67.6 ml/min; Est GFR (Non-African American) 58.3 ml/min; Potassium 3.9 mmol/L (3.5-5.1)
[2022-01-12] MEDS: FEXOFENADINE HCL 180 MG TAB PO SCH (08:41)
[2022-01-12] MEDS: ASPIRIN 81 MG ECTAB PO SCH (08:41)
[2022-01-12] MEDS: MULTIVITAMIN TAB PO SCH (08:41)
[2022-01-12] MEDS: LOSARTAN POTASSIUM 50 MG TAB PO SCH (08:41)
[2022-01-12] MEDS: METOPROLOL TARTRATE 25 MG TAB PO SCH (08:41)
[2022-01-12] MEDS: ESCITALOPRAM OXALATE 10 MG TAB PO SCH (08:41)
[2022-01-12] MEDS: PANTOprazole 40 MG TAB PO SCH (08:41)
[2022-01-12] MEDS: FUROSEMIDE 40 MG TAB PO SCH (08:41)
[2022-01-12] MEDS: buPROPion SR 100 MG TABCR PO SCH (08:41)
[2022-01-12] MEDS: INSULIN ASPART PER UNIT SC SCH ×4 (08:42→22:04)
[2022-01-12] MEDS: DOCUSATE SODIUM 100 MG CAP PO SCH ×2 (08:42→22:06)
[2022-01-12] MEDS: LANTUS PER UNIT CHARGE SQ SCH (08:44)
--- NOTE | 2022-01-12 12:30 | Orthopedic Progress Note ---
Date of Service January 12, 2022 Assessment & Plan (1) Status post reverse total replacement of right shoulder: Overall she seems to be doing fairly well with her shoulder. She is much more medically stable. The hospitalist has signed off. She is orthopedically stable for discharge when a bed becomes available. Full orthopedic discharge instructions have been placed in the discharge summary. Radha Celaya was seen and examined at bedside this morning. Overall she is doing well with regards to her shoulder. She feels well. We are currently awaiting discharge.. Review of Systems All systems reviewed & are unremarkable except as noted in HPI & below. Physical Exam On physical examination of the right shoulder, the dressing is clean and dry. She is wearing her sling as instructed.. Results & Data Results & Data Laboratory Results . Diagnostic Findings . PG Care Time/CCT Total # of Minutes Spent Total Time Spent with Patient: Total time spent is greater than 50% in coordination of care (as documented) at patient's floor/unit and/or counseling patient: Coding Level of Care Code 95387 Post Operative Follow-Up Diagnoses Status post reverse total replacement of right shoulder Z96.611
--- NOTE | 2022-01-12 12:57 | Pharmacy Report ---
Pharmacy Glycemic Short Note 2 - Date of Service January 12, 2022 - Glycemic Short BSG Results (Last 24 hours): 01/11/22 01/11/22 01/12/22 16:52 20:13 06:00 Glucose 146 H POC Glucose 137 H 186 H 01/12/22 01/12/22 07:44 11:23 Glucose POC Glucose 210 H 185 H OUTPATIENT ANTIDIABETIC REGIMEN: * metformin 1000 mg bid * A1c 7.4% 09/19/21 ASSESSMENT: 01/12 * BSGs labile yesterday * Received 44 units of insulin (25 units of basal and 19 units of prandial/correctional bolus) * Fasting BSG of 210 mg/dL this morning - will further increase Lantus today * Will slightly tighten carb coverage today in light of hyperglycemia yesterday 01/09 * Patient received total 32 units of insulin yesterday; 15 units basal + 17 units bolus. * BSGs yesterday were [phone] mg/dl. Fasting BSG today was 173 mg/dl. * Basal insulin dose increased to 20 units this morning for better control of fasting BSG. * Novolog parameters tightened slightly more in the AM but continued the same looser parameters for the rest of the day. 01/07 * Anticipated downgrade from ICU status today. Steroid effects from dexamethasone administered on 01/05 likely dissipated at this time * AM fasting BSG with notable trend down from yesterday, plus steroid effects dissipated. Will decrease Lantus slightly * Will loosen Novolog to a regimen which is slightly tighter than a weight-based moderate stress estimate 01/06 * Patient transferred to ICU yesterday 2nd respiratory concerns, possibly 2nd temporary phrenic nerve paralysis - BiPAP initiated but now transitioned to NC and downgrade anticipated * BSG's were persistently elevated yesterday, likely 2nd surgery and dexamethasone x1. Both of these will be decreasing in effect today. Therefore will not increase basal insulin. Will also transition over to Lantus as basal insulin now that steroids have stopped * Novolog still at tight parameters for now and will keep as-is 2nd hyperglycemia, through lunch. Will loosen slightly starting with dinner, as dexamethasone effects may start to wear off 01/05 * 71 year old now s/p R total shoulder arthroplasty, POD 0. Pharmacy consulted for glycemic management. Patient only on metformin at home. Received PO steroids preop and also dexamethasone 4 IV x 1 intraoperatively, therefore anticipate steroid induced hyperglycemia. * BSGs this morning in 150s - plan to start novolog with stress of 2/3 dosing for now. May consider adding NPH if BSGs trending up >180 PLAN FOR INPATIENT GLYCEMIC CONTROL: * Hold outpatient oral diabetes medications * Basal insulin * Lantus 30 units SC QAM * Bolus insulin * NovoLog per scale ACHS or Q6hrs while NPO * Goal Range: Low 110 mg/dL - High 140 mg/dL * Correction Factor: 30 mg/dL/unit ACHS * Nutritional / Prandial insulin per carb ratio of 1 unit per 6 grams CHO consumed ACHS
[2022-01-12] MEDS: DICLOFENAC SOD 1% GEL 100 GM TUBE EXT PRN ×2 (16:14→19:49)
[2022-01-12] MEDS: LORATADINE 10 MG TAB PO SCH (19:47)
[2022-01-12] MEDS: ATORVASTATIN 40 MG TAB PO SCH (19:47)
[2022-01-12] MEDS: allopurinoL 100 MG TAB PO SCH (19:48)
[2022-01-12] MEDS: SENNA 8.6 MG TAB PO SCH (19:48)
[2022-01-13] MEDS: oxyCODONE HCL IR 5 MG TAB (IMMEDIATE RELEASE) PO PRN ×3 (02:13→17:15)
[2022-01-13] MEDS: DICLOFENAC SOD 1% GEL 100 GM TUBE EXT PRN ×3 (03:08→21:55)
[2022-01-13] MEDS: LORazepam 0.5 MG TAB PO PRN ×2 (03:16→23:43)
[2022-01-13] MEDS: HEPARIN SOD 5,000 UNIT/0.5 ML VIAL SC SCH ×3 (05:19→21:42)
[2022-01-13] MEDS: ACETAMINOPHEN 500 MG TAB PO SCH ×3 (05:20→23:04)
[2022-01-13 07:58] LABS: Hematocrit (blood only) 36.8 % (34.1-44.9); Hemoglobin 11.4 g/dl (12.0-16.0); Mean Corpuscular Hemoglobin 27.7 pg (25.0-34.0); Mean Corpuscular Volume 89.5 fL (80.0-100.0); Mean Platelet Volume 9.7 fL (9.4-12.3); Platelet Count 381 K/uL (130-400); RDW Coefficient of Variation 14.9 % (11.5-14.5); RDW Standard Deviation 47.6 fL (36.4-46.3); Red Blood Count 4.11 M/uL (3.93-5.22); White Blood Count 10.77 K/ul (4.8-10.8)
--- NOTE | 2022-01-13 08:01 | Orthopedic Progress Note ---
Date of Service January 13, 2022 Assessment & Plan (1) Status post reverse total replacement of right shoulder: Continue with pain control. Waiting on case management for placement into rehab facility. Follow up in office in 1 week for evaluation. Subjective Belia is a 71 yo female 1 week s/p right reverse shoulder arthroplasty. She is resting comfortably in bed upon visit. Minimal right shoulder pain. We have been waiting for placement into rehabilitation facility. Review of Systems All systems reviewed & are unremarkable except as noted in HPI & below. Physical Exam Incision is clean and dry. No drainage. Intact axillary nerve right upper extremity. Results & Data Results & Data Laboratory Results . Diagnostic Findings . PG Care Time/CCT Total # of Minutes Spent Total Time Spent with Patient: Total time spent is greater than 50% in coordination of care (as documented) at patient's floor/unit and/or counseling patient: Coding Level of Care Code 64644 Post Operative Follow-Up Diagnoses Status post reverse total replacement of right shoulder Z96.611
[2022-01-13 08:16] LABS: BUN Creatinine Ratio 22.6 (10-20); Calcium 9.4 mg/dl (8.5-10.1); Creatinine Clr Calc Pharmacy 70.7 ml/min; Est GFR (African American) 71.2 ml/min; Est GFR (Non-African American) 61.4 ml/min; Potassium 3.7 mmol/L (3.5-5.1)
[2022-01-13] MEDS: FEXOFENADINE HCL 180 MG TAB PO SCH (08:47)
[2022-01-13] MEDS: buPROPion SR 100 MG TABCR PO SCH (08:47)
[2022-01-13] MEDS: PANTOprazole 40 MG TAB PO SCH (08:47)
[2022-01-13] MEDS: ASPIRIN 81 MG ECTAB PO SCH (08:47)
[2022-01-13] MEDS: LANTUS PER UNIT CHARGE SQ SCH (08:47)
[2022-01-13] MEDS: ESCITALOPRAM OXALATE 10 MG TAB PO SCH (08:47)
[2022-01-13] MEDS: FUROSEMIDE 40 MG TAB PO SCH (08:47)
[2022-01-13] MEDS: LOSARTAN POTASSIUM 50 MG TAB PO SCH (08:47)
[2022-01-13] MEDS: INSULIN ASPART PER UNIT SC SCH ×4 (08:47→21:49)
[2022-01-13] MEDS: MULTIVITAMIN TAB PO SCH (08:47)
[2022-01-13] MEDS: METOPROLOL TARTRATE 25 MG TAB PO SCH (08:47)
[2022-01-13] MEDS: DOCUSATE SODIUM 100 MG CAP PO SCH ×2 (08:51→21:47)
[2022-01-13] MEDS: SENNA 8.6 MG TAB PO SCH (21:40)
[2022-01-13] MEDS: allopurinoL 100 MG TAB PO SCH (21:40)
[2022-01-13] MEDS: ATORVASTATIN 40 MG TAB PO SCH (21:41)
[2022-01-13] MEDS: LORATADINE 10 MG TAB PO SCH (21:42)
[2022-01-14] MEDS: oxyCODONE HCL IR 5 MG TAB (IMMEDIATE RELEASE) PO PRN (01:16)
[2022-01-14] MEDS: ACETAMINOPHEN 500 MG TAB PO SCH (06:05)
[2022-01-14] MEDS: HEPARIN SOD 5,000 UNIT/0.5 ML VIAL SC SCH (06:06)
[2022-01-14 06:12] LABS: Hematocrit (blood only) 33.1 % (34.1-44.9); Hemoglobin 10.5 g/dl (12.0-16.0); Mean Corpuscular Hemoglobin 28.5 pg (25.0-34.0); Mean Corpuscular Hgb Conc 31.7 g/dL (32.0-36.0); Mean Corpuscular Volume 89.9 fL (80.0-100.0); Mean Platelet Volume 9.8 fL (9.4-12.3); Platelet Count 317 K/uL (130-400); RDW Coefficient of Variation 14.9 % (11.5-14.5); RDW Standard Deviation 47.8 fL (36.4-46.3); Red Blood Count 3.68 M/uL (3.93-5.22); White Blood Count 9.13 K/ul (4.8-10.8)
[2022-01-14 06:39] LABS: BUN Creatinine Ratio 18.3 (10-20); Calcium 9.1 mg/dl (8.5-10.1); Creatinine Clr Calc Pharmacy 63.9 ml/min; Est GFR (African American) 62.2 ml/min; Est GFR (Non-African American) 53.6 ml/min; Potassium 3.8 mmol/L (3.5-5.1)
[2022-01-14] MEDS: FEXOFENADINE HCL 180 MG TAB PO SCH (07:58)
[2022-01-14] MEDS: METOPROLOL TARTRATE 25 MG TAB PO SCH (07:58)
[2022-01-14] MEDS: MULTIVITAMIN TAB PO SCH (07:59)
[2022-01-14] MEDS: ASPIRIN 81 MG ECTAB PO SCH (07:59)
[2022-01-14] MEDS: PANTOprazole 40 MG TAB PO SCH (07:59)
[2022-01-14] MEDS: ESCITALOPRAM OXALATE 10 MG TAB PO SCH (07:59)
[2022-01-14] MEDS: buPROPion SR 100 MG TABCR PO SCH (07:59)
[2022-01-14] MEDS: FUROSEMIDE 40 MG TAB PO SCH (07:59)
[2022-01-14] MEDS: LOSARTAN POTASSIUM 50 MG TAB PO SCH (07:59)
[2022-01-14] MEDS: DOCUSATE SODIUM 100 MG CAP PO SCH (08:06)
--- NOTE | 2022-01-14 08:06 | Orthopedic Progress Note ---
Date of Service January 14, 2022 Assessment & Plan (1) Status post reverse total replacement of right shoulder: Continue with arm sling. Keep incision clean and dry, do not cover. Continue with current pain control measures. Awaiting placement into a rehab facility. Will discharge at that time. Radha Celaya is a 71 yo female who is 1 week status post right reverse shoulder arthroplasty. She is sitting at bedside this morning and is comfortable. She states that she is having mild post operative pain. Pain is well controlled. She is in her arm sling. Still waiting for placement to a rehab facility. Review of Systems All systems reviewed & are unremarkable except as noted in HPI & below. Physical Exam Incision is clean, dry. No drainage or erythema. Axillary nerve is intact, otherwise neurovascularly intact RUE Results & Data Results & Data Laboratory Results . Diagnostic Findings . PG Care Time/CCT Total # of Minutes Spent Total Time Spent with Patient: Total time spent is greater than 50% in coordination of care (as documented) at patient's floor/unit and/or counseling patient: Coding Level of Care Code 66872 Post Operative Follow-Up Diagnoses Status post reverse total replacement of right shoulder Z96.611
[2022-01-14] MEDS: INSULIN ASPART PER UNIT SC SCH ×2 (08:38→12:19)
[2022-01-14] MEDS: LANTUS PER UNIT CHARGE SQ SCH (08:39)
[2022-01-14] MEDS: LORazepam 0.5 MG TAB PO PRN (09:48)
[2022-01-14] MEDS ORDERED: LOPERAMIDE HCL 2 MG CAP PO STA (12:27)
--- NOTE | 2022-01-14 13:16 | Pharmacy Report ---
Pharmacy Glycemic Short Note 2 - Date of Service January 14, 2022 - Glycemic Short BSG Results (Last 24 hours): 01/13/22 01/13/22 01/14/22 16:31 20:42 05:39 Glucose 126 H POC Glucose 87 148 H 01/14/22 01/14/22 07:54 11:22 Glucose POC Glucose 151 H 107 H OUTPATIENT ANTIDIABETIC REGIMEN: * metformin 1000 mg bid * A1c 7.4% 09/19/21 ASSESSMENT: 01/14: * BSGs well-controlled yesterday, ranging 87-148 mg/dL w/ fasting BSG of 151 mg/dL * Will slightly loosen carb ratio today given repeated lower BSGs (below 100 mg/dL) at dinnertime * No other changes today * Awaiting rehab placement 01/12 * BSGs labile yesterday * Received 44 units of insulin (25 units of basal and 19 units of prandial/correctional bolus) * Fasting BSG of 210 mg/dL this morning - will further increase Lantus today * Will slightly tighten carb coverage today in light of hyperglycemia yesterday 01/09 * Patient received total 32 units of insulin yesterday; 15 units basal + 17 units bolus. * BSGs yesterday were [phone] mg/dl. Fasting BSG today was 173 mg/dl. * Basal insulin dose increased to 20 units this morning for better control of fasting BSG. * Novolog parameters tightened slightly more in the AM but continued the same looser parameters for the rest of the day. 01/06 * Patient transferred to ICU yesterday 2nd respiratory concerns, possibly 2nd temporary phrenic nerve paralysis - BiPAP initiated but now transitioned to NC and downgrade anticipated * BSG's were persistently elevated yesterday, likely 2nd surgery and dexamethasone x1. Both of these will be decreasing in effect today. Therefore will not increase basal insulin. Will also transition over to Lantus as basal insulin now that steroids have stopped * Novolog still at tight parameters for now and will keep as-is 2nd hyperglycemia, through lunch. Will loosen slightly starting with dinner, as dexamethasone effects may start to wear off 01/05 * 71 year old now s/p R total shoulder arthroplasty, POD 0. Pharmacy consulted for glycemic management. Patient only on metformin at home. Received PO steroids preop and also dexamethasone 4 IV x 1 intraoperatively, therefore anticipate steroid induced hyperglycemia. * BSGs this morning in 150s - plan to start novolog with stress of 2/3 dosing for now. May consider adding NPH if BSGs trending up >180 PLAN FOR INPATIENT GLYCEMIC CONTROL: * Hold outpatient oral diabetes medications * Basal insulin * Lantus 30 units SC QAM * Bolus insulin * NovoLog per scale ACHS or Q6hrs while NPO * Goal Range: Low 110 mg/dL - High 140 mg/dL * Correction Factor: 30 mg/dL/unit ACHS * Nutritional / Prandial insulin per carb ratio of 1 unit per 7 grams CHO consumed ACHS
--- NOTE | 2022-01-18 08:00 | Discharge Summary ---
Date of Service January 18, 2022 Admission HPI (Per Admitting) Belia is a pleasant 70-year-old female who has been dealing with chronic increasing right shoulder pain. She ambulates mostly with a walker due to back pain and some instability. She is having trouble eating because of her right shoulder. It wakes her up every night and she has to keep ice on it. She has been treated at another facility. She has had multiple injections of her shoulder,which are no longer helping. After failing extensive conservative treatment, she has elected to proceed with a right reverse shoulder arthroplasty. Admission Exam (Per Admitting) On physical examination the right shoulder, she has decreased range of motion and crepitus throughout. She has weakness mostly secondary to pain.. Principal Diagnosis Same as "Discharge Diagnosis" noted below under Discharge Instructions. Discharge Exam Incision is clean, dry. No drainage or erythema. Axillary nerve is intact, otherwise neurovascularly intact RUE Discharge Data Consultations 01/05/22 11:10 Consult Hospitalist Routine 01/05/22 16:21 Consult Plastic Bubble Packer Routine 01/06/22 12:18 Consult Plastic Bubble Packer Routine Procedures Performed Operation Date: 01/05/22 08:10 Actual Procedures p Right Total Shoulder Arthroplasty Reverse(Right) - Enoch Capellan DO Ordered Studies 11/10/21 05:00 US - OR guided needle placemen Routine 01/05/22 05:00 US - OR guided needle placemen Routine Hospital Course (1) Status post reverse total replacement of right shoulder: On January 05, 2022 Belia arrived at [facility] and underwent a right reverse shoulder replacement without complication. She had a general anesthetic and a right interscalene nerve block. Postoperatively she was placed in a sling and transferred to the general orthopedic floors. Unfortunately, she had a long postoperative course. It was mostly complicated by acute respiratory failure. 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 She was sent to the intensive care unit on BiPAP machine. She was then weaned off the BiPAP machine and placed on nasal cannula. She had difficulty getting up with physical therapy. She was a two-person max assist. Her pulmonary status improved and she was transferred back to the general orthopedic floors. There she worked more with physical therapy and she was slowly weaned off the nasal cannula. Her vital signs were then stable. Her pain was well controlled throughout the visit with regards to her right shoulder. The family and the therapist were recommending rehab placement. She was eventually transferred to [facility] on January 14, 2022 and she will follow-up with orthopedics 2 weeks from her date of surgery. PG Care Time/CCT Total # of Minutes Spent Total Time Spent with Patient: Total time spent is greater than 50% in coordination of care (as documented) at patient's floor/unit and/or counseling patient: Discharge Plan Discharge Items Patient Disposition: Home - Home Health Services Reason For Visit: Right Degenerative Joint Disease Discharge Diagnosis: Right reverse shoulder replacement Activity: Per Instructions section Non-emergency contact: Surgeon Call non-emergency contact if: your wound has increased redness and your wound has increased drainage Follow-up/Referrals: Abe Osullivan DO [Primary Care Provider] - Diet: Regular Addtl Attending Provider Instructions: Activity and Therapy Recommendations: * If you are using [facility] then therapy will be provided at your home until they feel you have accomplished all of your goals. * If you are using [facility] then Physical Therapy will be provided until they feel you are ready to start Outpatient Physical Therapy. * If you are not using home therapy then Outpatient Physical Therapy should start about 3-5 days from your day of surgery. Therapy will last about 8-12 weeks * Wear your sling for 3 weeks, unless otherwise instructed. You may remove your sling to shower and to dress, but otherwise, you should be in your sling at all times, including while sleeping * The shoulder replacement is very stable and you can use your hand while in the sling * You were shown a series of exercises in the hospital. Do these exercises daily including the exercises you were shown in physical therapy. Medications: * Narcotic You will likely be sent home from the hospital with a prescription for the narcotic pain medication that worked best throughout your stay. * Other medications may be prescribed for specific circumstances. If you have any questions, please call the office at . * Resume previous home medications unless otherwise instructed Dressing Care: Leave the Silverlon dressing in place for 7 days. After 7 days you may remove the dressing. If the incision is not draining then you may leave the orquidea open to air. If there is a little bit of drainage or if the orquidea are getting stuck on your clothing then cover the incision with a dry dressing. The orquidea will be removed at your 2 week follow-up appointment. Showering: You may shower with the Silverlon dressing in place. Do not let the shower spray hit the dressing directly. Pat the Silverlon dressing dry. If the dressing becomes wet underneath, then simply remove the dressing. Keep the incision dry until you are 7 days out from the day of surgery. After 7 days you may remove the Silverlon dressing and shower with the orquidea exposed. Let soapy water run over the orquidea and pat them dry. Do not scrub or soak the incision. Things To Watch For: * Drainage from the incision site that occurs more than one week after your surgery. * Increased redness at the incision site. * Fever above 102 degrees Fahrenheit. * Unusual chest pain or shortness of breath. * Call [facility] at with any of the above problems Follow-Up Visit: Follow-up with Dr. Capellan's PA (Enoch Moreno) 2-3 weeks after your day of surgery. He will remove your orquidea and answer any questions. If you have any additional questions or concerns, Dr Capellan is usually in the office at the same time and will be available An appointment was probably scheduled when you signed-up for surgery in the office. If you have any questions call More detailed instructions as well as Frequently Asked Questions were provided in a folder by our office when you signed-up for surgery. Please review these instructions when you get home. If you have any further questions or concerns, please feel free to call the office at [phone] Pending Studies at Discharge: No Stand-Alone Forms: My [facility] Medications and DC Order Prescriptions: Continued losartan 50 mg Tablet 50 mg PO QAM furosemide 40 mg Tablet 40 mg PO QAM atorvastatin 40 mg Tablet 40 mg PO HS aspirin 81 mg Tablet,Delayed Release (Dr/Ec) 81 mg PO QAM bupropion HCl 100 mg Tablet Sustained-Release 12 Hr 100 mg PO QAM lorazepam 0.5 mg Tablet 0.5 mg PO TID PRN (Reason: Anxiety) gabapentin 800 mg Tablet 800 mg PO TID pantoprazole 40 mg Tablet,Delayed Release (Dr/Ec) 40 mg PO QAM metformin 1,000 mg Tablet 1,000 mg PO BID ziprasidone HCl [Geodon] 40 mg Capsule 40 mg PO BID escitalopram oxalate 20 mg Tablet 30 mg PO QAM metoprolol tartrate 25 mg Tablet 25 mg PO QAM albuterol sulfate 90 mcg/actuation Hfa Aerosol Inhaler 2 puff INHALATION QID PRN (Reason: Wheezing) meclizine 25 mg Capsule 25 mg PO TID PRN (Reason: Dizziness) acetaminophen 500 mg Tablet 500 mg PO Q6H PRN (Reason: Pain) fexofenadine 180 mg Tablet 180 mg PO QAM loratadine 10 mg Tablet 10 mg PO HS allopurinol 100 mg Tablet 100 mg PO QPM oxycodone-acetaminophen [Percocet] 5-325 mg Tablet 1 tab PO Q4H PRN (Reason: Pain) Qty: 30 0RF Discharge Orders: Discharge Order (Routine); Ordered 01/14/22 Ordered By: Enoch Horvath/Other Patient Handouts: Managing Type 2 Diabetes Admission Data Admit Date/Time: 01/06/22 12:18 Attending Provider: Enoch Capellan Admit Provider: Enoch Capellan Primary Care Provider: Abe Osullivan Other Providers: Kevin Hays ; Daniel Lobo ; Cain Harvey ; Enoch Freeman ; Carlos Champagne ; Allen Manjarrez ; Wade Farooq ; Ronda Lynn ; Raheel Pina ; Aimee Miles ; [facility] Other Interventions: Discharge Summary Assessment (RN) Last Done: 01/14/22 13:55
--- NOTE | 2022-01-21 11:57 | Coding Query ---
CODING QUERY To promote full compliance with coding requirements relating to patient care, provider participation is requested in all cases of hearing health technician uncertainty. Please assist us with the question(s) below: Coding Question(s): Pt admitted for reverse shoulder. Developed acute respiratory failure postop- with BiPaP. 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 Please check below the phrase that describes the hemiparesis of the diaphragm . Thanks for your help! NITO Davila [facility] Physician's Response(s): ____X The hemiparesis of the diaphragm is an expected occurrence s/p anesthetic nerve block The hemiparesis of the diaphragm is a complication post anesthetic nerve block Cannot clinically correlate if the nerve block is a complication or expected occurrence of the nerve block Other: Please document: Principal Diagnosis: "that condition established after study, to be chiefly responsible for occasioning the admission of the patient to the hospital for care." Co-Existing Principal Diagnosis: "when two or more diagnoses equally meet the criteria for principal diagnosis as determined by the circumstances of admission, diagnostic work up, and/or therapy provided, and the Alphabetic Index, Tabular List, or another coding guideline does not provide sequencing direction, any one of the diagnoses may be sequenced first." "When the physician has documented what appears to be a current diagnosis in the body of the record, but has not included the diagnosis in the final diagnostic statement, the physician should be asked whether the diagnosis should be added." (Source Coding [facility] 2 QTR90. p3-4) ORI
== END 2022-01-14 14:05 | DRG 483 ==
LOC: ASU 06:15 → 2W 06:15 → 1E 15:03 → 2N 01-08 23:38

== ENCOUNTER 2022-07-27 09:58 | Inpatient (IN) ==
--- NOTE | 2022-07-22 15:49 | Anesthesiology Consultation ---
Date of Service July 22, 2022 Assessment & Plan (1) Encounter for pre-operative examination: Chart Review Chart Review: Acceptable Risk for Surgery (pending CXR and anesthesia evaluation DOS ) and Patient NOT seen in Pre Admission Testing - Check BSG AM DOS - Will order CXR DOS - Discussed case with Dr. Mei- will check CXR DOS to recheck diaphragm- will leave to anesthesiologist discretion DOS re: PNB (see below) Long postoperative course with right reverse shoulder replacement 01/05/2022 complicated by acute respiratory failure. May have been secondary to hemiparesis from diaphragm nerve block. Was in ICU on Bi PAP machine- later weaned off to NC. Pulm status improved and later weaned off NC. Discharged 01/18/23 from [facility] to [facility] Pt is NOT an OPJ candidate -COVID screening: Per PAT nursing assessment on 07/21/22. No known COVID-19 positive contacts or current COVID-19 related symptoms. Travel screen negative. Patient vaccinated for Covid. At surgeon discretion if preop Covid testing being done. Right Reverse TSA 01/05/22= Done under GA with Grade 2-3 view with Glidescope #3.0. ETT #7.0. Patient seen by PCP 04/30/22 = patient seen for JENNIFER visit. Admitted for chronic diastolic heart failure, sepsis, UTI, troponin level, lactic acidosis, nontraumatic ARGELIA. Patient having pain in right shoulder and right breast. Does radiate to right jaw and to her back. Patient is always shortness of breath and is at baseline. Lexiscan for chest pain. Refer for colonoscopy as she is doing is anemic. Being treated for yeast infection by [employer]. BP elevated at 176/90. Pt admitted to [facility] (discharged 04/21/22)= presented with shortness of breath and generalized weakness. Troponins elevated due to sepsis. Treated for urinary tract infection. CXR showed possible cardiomegaly and pleural effusion. Patient did well during hospital stay and received Rocephin. Twitching muscle movements much improved with scheduled Ativan. She willbe discharged home on cefdinir. History Surgery Operation Date: 07/27/22 12:40 Proposed Procedures p Revision Right Total Shoulder Arthroplasty Reverse with Possible Bone Grafting vs Resection Arthroplasty - Enoch Capellan, DO Height/Weight Height: 5 ft 5 in Weight: 131.542 kg Allergies Allergy/AdvReac Type Severity Reaction Status Date / Time cephalexin [From Keflex] Allergy Unknown Rash Verified 07/21/22 15:38 Penicillins Allergy Unknown A Verified 07/21/22 15:38 CHILD-RASH Medications Home Medications Medication Instructions Recorded Confirmed Last Taken acetaminophen 500 mg tablet 500 mg PO Q6H PRN Pain 09/18/21 07/21/22 01/04/22 18:00 albuterol sulfate 90 mcg/actuation 2 puff inhalation QID PRN Wheezing 09/18/21 07/21/22 Unknown aerosol inhaler aspirin 81 mg tablet,delayed 81 mg PO QAM 09/18/21 07/21/22 01/04/22 09:00 release atorvastatin 40 mg tablet 40 mg PO HS 09/18/21 07/21/22 01/04/22 21:00 bupropion HCl 100 mg tablet,12 hr 100 mg PO QAM 09/18/21 07/21/22 01/05/22 05:30 sustained-release escitalopram oxalate 20 mg tablet 30 mg PO QAM 09/18/21 07/21/22 01/05/22 05:30 furosemide 40 mg tablet 40 mg PO QAM 09/18/21 07/21/22 01/04/22 09:00 gabapentin 800 mg tablet 800 mg PO TID 09/18/21 07/21/22 01/05/22 05:30 lorazepam 0.5 mg tablet 0.5 mg PO TID PRN Anxiety 09/18/21 07/21/22 01/04/22 21:00 losartan 50 mg tablet 50 mg PO QAM 09/18/21 07/21/22 01/04/22 09:00 meclizine 25 mg capsule 25 mg PO TID PRN Dizziness 09/18/21 07/21/22 Unknown metformin 1,000 mg tablet 1,000 mg PO BID 09/18/21 07/21/22 01/04/22 18:00 metoprolol tartrate 25 mg tablet 25 mg PO QAM 09/18/21 07/21/22 01/05/22 05:30 pantoprazole 40 mg tablet,delayed 40 mg PO QAM 09/18/21 07/21/22 01/04/22 09:00 release ziprasidone HCl 40 mg capsule 40 mg PO BID 09/18/21 07/21/2222 21:00 (Laila) fexofenadine 180 mg tablet 180 mg PO QAM 12/31/21 07/21/22 01/04/22 09:00 oxycodone-acetaminophen 7.5 mg-325 1.5 tab PO Q6H PRN Pain 07/21/22 07/21/22 Unknown mg tablet ropinirole 1 mg tablet 1 mg PO BID 07/21/22 07/21/22 Unknown Past Medical History Medical History (Updated 07/23/22 @ 13:31 by Shannon Ryan PA-C) Anemia Hgb typically 10-11 range since 09/2021 Anxiety Arthritis STEROID SHOT IN KNEE - APR OR MAY 2022 Asthma no use inhaler for long time Cardiac murmur chronic per pt no significant valve disease on 03/2022 ECHO Chronic cough denies change or worsening, occasionally productive, follows with PCP Chronic diastolic heart failure Depression Diabetes NIDDM Dyspnea on effort occ. walking between rooms, denies chest discomfort Family history of reaction to anesthesia SISTER - SLOWER TO WAKE UP GERD (gastroesophageal reflux disease) controlled, stable per pt Hiatal hernia History of anesthesia reaction DEC 2021 - AFTER RIGHT SHOULDER REPLACEMENT /TROUBLE BREATHING REQUIRED OXYGEN AND ICU STAY. ([facility]) History of gout History of hospitalization due to heart failure [facility] ? DATES/ BEFORE APR 2022 - D/T HEART FAILURE AND LOW KIDNEY FUNCTION (NOW IMPROVED) Hyperlipidemia Hypertension controlled, stable; white coat hypertension Restless leg syndrome Sleep apnea unable to tolerate CPAP device Takotsubo cardiomyopathy 04/13/17 (nonobstructive cardiac cath 04/15/17) Past Family History Family History Sister Family history of reaction to anesthesia Mother Family history of diabetes mellitus Past Surgical History Surgical History History of appendectomy History of bilateral tubal ligation History of bladder repair surgery History of cardiac cath MORE THAN 10 YRS AGO-NO STENTS PLACED History of cholecystectomy History of colonoscopy History of dilatation and curettage History of endoscopy History of esophagogastroduodenoscopy (EGD) History of nasal surgery S/P FRACTURE History of tonsillectomy History of total replacement of right shoulder joint DEC 2021 Social History Smoking Status: Never smoker Do You Dip or Chew Tobacco: No Hx Alcohol Use: No Hx Substance Use: No substance use type: does not use Lab Results Anesthesia Preop Results Results Anesthesia Widget: WBC 7.76 K/ul (4.8-10.8) 07/21/22 Hgb 10.0 g/dl (12.0-16.0) L 07/21/22 Hct 33.0 % (37.0-47.0) L 07/21/22 Plt 459 K/uL (130-400) H 07/21/22 Na 139 mmol/L (136-145) 07/21/22 K 4.6 mmol/L (3.5-5.1) 07/21/22 Cl 102 mmol/L (98-107) 07/21/22 CO2 27 mmol/L (21-32) 07/21/22 BUN 19 mg/dl (6-23) 07/21/22 Creat 0.85 mg/dl (0.6-1.2) 07/21/22 Glucose Level 112 mg/dl (70-99(Fasting)) H 07/21/22 PT 10.8 Seconds (9.0-12.0) 07/21/22 PTT 25.8 Seconds (21.0-31.0) 07/21/22 INR 1.0 (0.9-1.1) 07/21/22 Blood Type B Positive 07/21/22 Antibody Screen NEGATIVE 07/21/22 Testing Laboratory Results Anemia chronic and stable- Hgb 10-11 since 09/2021 Electrocardiogram Date: 01/05/22 Findings: + NSR @ (93bpm) Low voltage QRS Cannot rule out anterior infarct, age undetermined When compared to EKG from October 02, 2021- vent rate has increased by 37bpm per cardio Chest X-Ray Date: 01/06/22 FINDINGS: Cardiac silhouette is enlarged. Right hemidiaphragmatic elevation with subsegmental opacities. Pulmonary vascular congestion. No pneumothorax. Degenerative changes of the spine and left shoulder. Reverse right shoulder total joint arthroplasty with overlying skin orquidea. IMPRESSION: 1. Cardiomegaly with pulmonary vascular congestion. 2. Right hemidiaphragmatic elevation with persistent bibasilar opacities suggestive of probable atelectasis. Echocardiogram Date: 04/17/22 EF: 65% LV Function: normal RWMA: + none Other Findings: + LVH (Mild) Valvular Disease: + no significant valvular disease Stress Test Date: 05/21/22 Type: nuclear Lexiscan Cardiolite myocardial perfusion imaging demonstrates a small area of mild apical lateral reversibility, likely motion artifact. However, cannot entirely exclude a small area of mild ischemia. Myocardial imaging is negative for prior infarction. Calculated LVEF is 69%. No transient ischemic dilation. Cardiac Catheterization Date: 04/15/17 LAD 30%, left circumflex okay, RCA okay, EF 50%, apical hypokinesis (Per cardio records - no report available)
[~2022-07-27 09:58] MED LIST changes: -ALLERGY Noted to ORDERED Medication SCH; +BUPIVACAINE 0.5 % 5 MG/1 ML PF 10ML VIAL ONE; +ceFAZolin 2000MG 2,000 MG/15 ML SYR IV SCH
[2022-07-27] MEDS ORDERED: ceFAZolin 3000MG/72.5 ML BAG IV ONE (10:11)
--- NOTE | 2022-07-27 10:43 | XRay Report ---
TWO VIEW CHEST CLINICAL HISTORY: Preoperative examination. FINDINGS: PA and lateral chest radiographs are compared to study dated 01/07/2022. The heart is mildl y enlarged. The pulmonary vasculature is noncongested. The mitral annulus is densely calcified. The lungs and pleural spaces are clear noting mild dependent atelectasis. There is no pneumothorax. The s keletal structures are osteopenic. A right shoulder arthroplasty is in place. There are fracture frag ments around the right shoulder arthroplasty, and there is dislocation of the glenoid component. Arth ritic change is seen in the left shoulder. Degenerative change is noted in the thoracic spine. Surgic al clips are noted in the upper abdomen. IMPRESSION: 1. Cardiomegaly with no active disease in the chest. 2. There are fracture fragments around the right shoulder arthroplasty with dislocation of the glenoi d component. ACT 112: Negative or not required by law. Electronically signed by: Cain Yeager M.D. 07/27/2022 10:42 AM
--- NOTE | 2022-07-27 12:41 | History & Physical Bridge Note ---
Date of Service July 27, 2022 History & Physical Bridge Note I have examined the patient, reviewed the History & Physical and in the interval since the performance of the History & Physical I have noted the following changes of clinical significance: no changes noted
[2022-07-27] MEDS ORDERED: BUPIVACAINE 0.25% PF 30 ML VIAL ONE (12:57)
[2022-07-27] MEDS ORDERED: MIDAZOLAM HCL 1 MG/ML 2ML VIAL ONE (13:11)
[2022-07-27] MEDS ORDERED: PROPOFOL IV EMULSION 10 MG/ML 20 ML VIAL IV ONE (13:11)
[2022-07-27] MEDS ORDERED: LIDOCAINE 2% MPF LOCAL 5 ML VIAL ONE (13:11)
[2022-07-27] MEDS ORDERED: SUCCINYLCHOLINE 100MG/5ML SYR IV ONE (13:11)
[2022-07-27] MEDS ORDERED: fentaNYL citrate PF 100 MCG/2 ML VIAL ONE (13:11)
[2022-07-27] MEDS ORDERED: DEXAMETHASONE SOD INJ 4 MG/ML VIAL ONE (13:11)
[2022-07-27] MEDS ORDERED: ONDANSETRON INJ 2 MG/ML 2 ML VIAL ONE (13:11)
[2022-07-27] MEDS ORDERED: ORTHO JOINT ANESTHETIC ONE (13:16)
[2022-07-27] MEDS ORDERED: ONDANSETRON INJ 2 MG/ML 2 ML VIAL IV PRN ×2 (13:54→18:03)
[2022-07-27] MEDS ORDERED: PROMETHAZINE HCL 6.25 MG in SODIUM CHLORIDE 0.9% 50 ML IV PRN (13:54)
[2022-07-27] MEDS ORDERED: fentaNYL citrate PF 100 MCG/2 ML VIAL IV PRN (13:54)
[2022-07-27] MEDS ORDERED: ATROPINE SULFATE 0.1 MG/ML 10ML SYR IV PRN (13:54)
[2022-07-27] MEDS ORDERED: ePHEDrine sulfate 50 MG/ML AMP IV PRN (13:54)
[2022-07-27] MEDS ORDERED: ALBUTEROL HFA 8 GM INHALER INH ONE (14:56)
[2022-07-27] MEDS ORDERED: ePHEDrine sulfate 50 MG/ML SYR ONE (14:56)
[2022-07-27] MEDS ORDERED: PHENYLEPHRINE 100MCG/ML 5ML SYR ONE (14:56)
--- NOTE | 2022-07-27 15:20 | Operative Report ---
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 for the above procedure. She was seen in the preoperative holding area and the operative extremity identified and signed. She was given a preoperative antibiotic and a right interscalene nerve block. She was taken back to the operative room and laid on the table in supine position. She was put under general anesthesia. The right shoulder was prepped and draped in sterile fashion. A timeout was done. The patient and the operative extremity was properly identified. The previous deltopectoral incision was opened back up. Dissection was taken down through the fascia. The deltopectoral interval was reopened. The deltoid was retracted laterally and the conjoined tendon was retracted medially. The glenoid component was visualized in the anterior subdeltoid space. The glenosphere and the glenoid baseplate and all the screws were still intact and had just fractured on the anterior aspect of the glenoid. This was easily removed. The proximal humerus was then exposed. The humeral tray was then karlo daniela. I did see some signs of notching on the undersurface of the humeral bearing. Time was then spent exposing the glenoid. There was a crescent west of bone stock left on the posterior aspect of the glenoid but the anterior glenoid was completely devoid of any bone. I did not feel any bone grafting would hold up. At this point I decided to exchange her to a shoulder hemiarthroplasty. I used a large Biomet humeral head. A size 58 x 27 mm head. The head was then impacted into place. The shoulder was then reduced and brought through a full range of motion. It did not seem to dislocate. It seemed to be relatively stable. The wounds then irrigated. The deeper interval was closed with #1 Vicryl suture. The deltopectoral interval was closed with 2- 0 Vicryl. Skin was closed with 3-0 Vicryl and orquidea. She was then placed in a Silverlon dressing. She was then placed in an arm sling. She was then extubated and transferred to a hospital bed. She was taken to the postanesthesi a care unit in stable condition. She tolerated the procedure well. Enoch Moreno PA-C, was present for the entire procedure. He was critical for patient positioning, prepping, draping, retraction exposure, wound closure and application of sterile dressing. I attest to the content of the Intraoperative Record and any orders documented therein. Any exceptions are noted below.
[2022-07-27] MEDS ORDERED: ALBUT/IPRATROP 3MG/0.5MG NEB 3 ML VIAL ONE (15:28)
--- NOTE | 2022-07-27 15:59 | Anesthesiology Progress Note ---
Date of Service July 27, 2022 Anesthesia Post Procedure Vital Signs Vital Signs: Temp Pulse Pulse Resp BP BP Pulse Ox 07/27/22 15:30 36.0 C L 89 23 193/127 H 95 07/27/22 10:40 36.9 C 71 22 183/74 H 95 O2 Del Method O2 Flow Rate 07/27/22 15:30 Oxymask 10 07/27/22 10:40 Room Air Pain Intensity Right Shoulder: Pain Intensity: 5 Transfer of Care Handoff Completed per policy Notes Mental Status: alert / awake / arousable Patient Amnestic to Procedure: Yes Nausea / Vomiting: adequately controlled Pain: adequately controlled Airway Patency, RR, SpO2: stable & adequate BP & HR: stable & adequate Hydration State: stable & adequate Anesthetic Complications: no major complications apparent Notes: significant increased work of breathing in pacu with audible weezing. duoneb administered immediately upon pacu arrival with minimal improvement in work of breathing. patient placed on BiPAP which drastically improved her respiratory status. The high likelyhood of needing non-invasive pressure support was anticipated and discussed pre-operatively with the patient. Would recommend disposition to PCU with nighttime BiPAP. I have discussed this with the surgical team.
--- NOTE | 2022-07-27 16:05 | XRay Report ---
RIGHT SHOULDER 2 VIEWS CLINICAL HISTORY: Postoperative examination. FINDINGS: 2 portable views of the right shoulder are compared to study dated 01/06/2012 and correlate d with today's chest x-ray. The skeletal structures are osteopenic. A revised right shoulder arthropl asty is in near anatomic alignment. A bone fragment is again seen posterior to the humeral head. No a cute fracture is identified. The acromioclavicular joint is maintained. Skin clips, subcutaneous gas, and soft tissue swelling overlying the right shoulder are expected postoperative changes. The right lung parenchyma is clear as visualized noting dependent atelectasis. IMPRESSION: Expected postoperative findings status post right shoulder arthroplasty revision. No acut e fracture is seen. Electronically signed by: Cain Yeager M.D. 07/27/2022 4:04 PM
[2022-07-27] MEDS ORDERED: MECLIZINE HCL 25 MG TAB PO PRN (18:03)
[2022-07-27] MEDS ORDERED: HYDROmorphone INJ 0.5 MG/0.5 ML SYR IV PRN (18:03)
[2022-07-27] MEDS ORDERED: NALOXONE HCL 0.4 MG/1 ML VIAL/CARP IV PRN (18:03)
[2022-07-27] MEDS ORDERED: METOCLOPRAMIDE HCL INJ 5 MG/ML 2 ML VIAL IV PRN (18:03)
[2022-07-27] MEDS ORDERED: ALBUTEROL HFA 8 GM INHALER INH PRN (18:03)
[2022-07-27] MEDS ORDERED: PHARMACY GLYCEMIC MGMT CONSULT PRN (18:03)
[2022-07-27] MEDS ORDERED: bisacodyL 10 MG SUPP PR PRN (18:03)
[2022-07-27] MEDS ORDERED: MAGNESIUM HYDROXIDE SUSP 30 ML UDC PO PRN (18:03)
[2022-07-27] MEDS: LORazepam 0.5 MG TAB PO PRN (18:31)
[2022-07-27] MEDS: SODIUM CHLORIDE 0.9% 1000ML 1,000 ML IV SCH (18:37)
[2022-07-27] MEDS ORDERED: CARBOHYDRATES FOR HYPOGLYCEMIA PO PRN (19:15)
[2022-07-27] MEDS ORDERED: GLUCOSE 40% GEL 15 GM TUBE PO PRN (19:15)
[2022-07-27] MEDS ORDERED: DEXTROSE 50% 50 ML SYRINGE IV PRN (19:15)
[2022-07-27] MEDS ORDERED: LANTUS PER UNIT CHARGE SC ONE (19:15)
[2022-07-27] MEDS ORDERED: GLUCAGON FOR INJ 1 MG VIAL IM PRN (19:15)
[2022-07-27] MEDS ORDERED: GLUCOSE 10 TAB/TUBE PO PRN (19:15)
[2022-07-27] MEDS: INSULIN ASPART PER UNIT CHARGE SC SCH (19:29)
[2022-07-27] MEDS: ATORVASTATIN 40 MG TAB PO SCH (19:47)
[2022-07-27] MEDS: rOPINIRole HCL 1 MG TABLET PO SCH (19:47)
[2022-07-27] MEDS: SENNA 8.6 MG TAB PO SCH (19:47)
[2022-07-27] MEDS: DOCUSATE SODIUM 100 MG CAP PO SCH (19:47)
[2022-07-27] MEDS ORDERED: GABAPENTIN 800 MG TAB PO SCH (21:00)
[2022-07-27] MEDS: ceFAZolin 2000MG 2,000 MG/15 ML SYR IV SCH (21:20)
[2022-07-27] MEDS: ACETAMINOPHEN 500 MG TAB PO SCH (21:21)
--- NOTE | 2022-07-27 22:54 | Hospitalist Consultation ---
Date of Consultation July 27, 2022 Assessment & Plan (1) Restlessness and agitation: * One to one observation ordered as needed. * Holding home Ativan due to concern for delirium * Recommend IV morphine 0.5 mg prn for further restlessness/agitation. * Brown catheter placed * Melatonin for insomnia * Prn IV furosemide 20 mg, ventilatory support (BiPAP) as needed for hypoxia History of Present Illness Attending Physician: Enoch Capellan DO History of Present Illness Belia is a 71 year old woman who is now s/p revision of right reverse total shoulder arthroplasty to right hemiarthroplasty. Per nursing, patient attempted to ambulate to the restroom without assistance despite being limited due to pain and being unable to use her right arm for balance. At bedside, patient is asleep but is easily roused to voice. She is oriented to self, location, and time. She appears distracted at times but is otherwise alert. She denies hallucinations, anxious mood, headaches, shortness of breath, chest pain, dizziness, or nausea. Allergies Allergy/AdvReac Type Severity Reaction Status Date / Time cephalexin [From Keflex] Allergy Mild Rash Verified 07/27/22 10:33 Penicillins Allergy Mild A Verified 07/27/22 10:33 CHILD-RASH Home Medications Medication Instructions Recorded Confirmed Type acetaminophen 500 mg tablet 500 mg PO Q6H PRN Pain 09/18/21 07/27/22 History albuterol sulfate 90 mcg/actuation 2 puff inhalation QID PRN Wheezing 09/18/21 07/27/22 History aerosol inhaler aspirin 81 mg tablet,delayed 81 mg PO QAM 09/18/21 07/27/22 History release atorvastatin 40 mg tablet 40 mg PO HS 09/18/21 07/27/22 History bupropion HCl 100 mg tablet,12 hr 200 mg PO QAM 09/18/21 07/27/22 History sustained-release (Wellbutrin SR) escitalopram oxalate 20 mg tablet 30 mg PO QAM 09/18/21 07/27/22 History (Lexapro) furosemide 40 mg tablet 40 mg PO QAM 09/18/21 07/27/22 History gabapentin 800 mg tablet 800 mg PO TID 09/18/21 07/27/22 History lorazepam 0.5 mg tablet 0.5 mg PO TID PRN Anxiety 09/18/21 07/27/22 History losartan 50 mg tablet 50 mg PO QAM 09/18/21 07/27/22 History meclizine 25 mg capsule 25 mg PO TID PRN Dizziness 09/18/21 07/27/22 History metformin 1,000 mg tablet 1,000 mg PO BID 09/18/21 07/27/22 History metoprolol tartrate 25 mg tablet 25 mg PO QAM 09/18/21 07/27/22 History pantoprazole 40 mg tablet,delayed 40 mg PO QAM 09/18/21 07/27/22 History release ziprasidone HCl 40 mg capsule 40 mg PO BID 09/18/21 07/27/22 History (Geodon) fexofenadine 180 mg tablet 180 mg PO QAM 12/31/21 07/27/22 History (Esthela Allergy) oxycodone-acetaminophen 7.5 mg-325 1.5 tab PO Q6H PRN Pain 07/21/22 07/27/22 History mg tablet (Percocet) ropinirole 1 mg tablet 1 mg PO BID 07/21/22 07/27/22 History Patient History Medical History (Updated 07/28/22 @ 10:09 by Isaias Nuno MD) Anemia Hgb typically 10-11 range since 09/2021 Anxiety Arthritis STEROID SHOT IN KNEE - APR OR MAY 2022 Asthma no use inhaler for long time Cardiac murmur chronic per pt no significant valve disease on 03/2022 ECHO Chronic cough denies change or worsening, occasionally productive, follows with PCP Chronic diastolic heart failure Depression Diabetes NIDDM Dyspnea on effort occ. walking between rooms, denies chest discomfort Family history of reaction to anesthesia SISTER - SLOWER TO WAKE UP GERD (gastroesophageal reflux disease) controlled, stable per pt Hiatal hernia History of anesthesia reaction DEC 2021 - AFTER RIGHT SHOULDER REPLACEMENT /TROUBLE BREATHING REQUIRED OXYGEN AND ICU STAY. ([facility]) History of gout History of hospitalization due to heart failure [facility] ? DATES/ BEFORE APR 2022 - D/T HEART FAILURE AND LOW KIDNEY FUNCTION (NOW IMPROVED) Hyperlipidemia Hypertension controlled, stable; white coat hypertension Restless leg syndrome Sleep apnea unable to tolerate CPAP device Takotsubo cardiomyopathy 04/13/17 (nonobstructive cardiac cath 04/15/17) Surgical History (Updated 07/27/22 @ 17:22 by Enoch Capellan DO) History of appendectomy History of bilateral tubal ligation History of bladder repair surgery History of cardiac cath MORE THAN 10 YRS AGO-NO STENTS PLACED History of cholecystectomy History of colonoscopy History of dilatation and curettage History of endoscopy History of esophagogastroduodenoscopy (EGD) History of nasal surgery S/P FRACTURE History of tonsillectomy History of total replacement of right shoulder joint DEC 2021 Family History Sister Family history of reaction to anesthesia Mother Family history of diabetes mellitus Social History Smoking Status: Never smoker Second Hand Exposure: No; Do You Dip or Chew Tobacco: No; Hx Alcohol Use: No Hx Substance Use: No Preferred Language: Frisian Communication Ability: Effective Communication Ability Comment: PT SOMETIMES GETS CONFUSED/DAUGHTER IN LAW DEANDRE PARDO NATALIA 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 HEENT: PERRLA. Normal conjunctiva, anicteric sclera. Oropharynx normal. Respiratory: Normal respiratory effort, CTABL. Mildly tachypneic. Cardiovascular: RRR without murmurs, gallops, or rubs. No edema. GI: Soft abdomen with normal bowel sounds heard on auscultation. Nontender x4 quadrants Neuro: Alert and oriented x3. Results & Data Results & Data Vital Signs (Past 12 Hours) Vital Signs Temp Pulse Pulse Resp BP Pulse Ox O2 Del Method 07/27/22 22:30 86 21 92 07/27/22 17:30 78 16 170/77 H 97 BiPAP 07/27/22 17:15 36.3 C L 78 18 99 BiPAP 07/27/22 17:00 79 20 169/77 H 95 BiPAP 07/27/22 16:45 81 20 97 BiPAP 07/27/22 16:30 79 24 123/82 96 BiPAP 07/27/22 15:40 90 27 H 95 07/27/22 16:20 84 22 161/69 H 97 BiPAP 07/27/22 16:10 36.3 C L 79 24 168/90 H 95 BiPAP 07/27/22 16:00 81 22 155/69 H 97 BiPAP 07/27/22 15:50 85 16 142/93 H 95 BiPAP 07/27/22 15:40 95 H 20 175/137 H 95 Nebulizer 07/27/22 15:30 36.0 C L 89 23 193/127 H 95 Oxymask O2 Flow Rate FiO2 07/27/22 22:30 4 07/27/22 17:30 07/27/22 17:15 07/27/22 17:00 07/27/22 16:45 07/27/22 16:30 07/27/22 15:40 40 07/27/22 16:20 07/27/22 16:10 07/27/22 16:00 07/27/22 15:50 07/27/22 15:40 15 07/27/22 15:30 10 Resident Activity Tracking Resident Involvement: Resident Care Provided Care Provided: Adult Hospital Medicine
[2022-07-27] MEDS ORDERED: MELATONIN 3 MG TAB PO STA (22:55)
[2022-07-28] MEDS: INSULIN ASPART PER UNIT CHARGE SC SCH ×6 (00:02→20:39)
[2022-07-28] MEDS: ceFAZolin 2000MG 2,000 MG/15 ML SYR IV SCH ×3 (05:01→22:52)
[2022-07-28] MEDS: ACETAMINOPHEN 500 MG TAB PO SCH ×3 (05:02→22:51)
[2022-07-28] MEDS: SODIUM CHLORIDE 0.9% 1000ML 1,000 ML IV SCH (05:11)
[2022-07-28 06:22] LABS: Hematocrit (blood only) 30.8 % (37.0-47.0); Hemoglobin 9.1 g/dl (12.0-16.0); Mean Corpuscular Hemoglobin 24.3 pg (25.0-34.0); Mean Corpuscular Hgb Conc 29.5 g/dL (32.0-36.0); Mean Corpuscular Volume 82.1 fL (80.0-100.0); Mean Platelet Volume 9.6 fL (9.4-12.4); Platelet Count 367 K/uL (130-400); RDW Standard Deviation 44.8 fL (36.4-46.3); Red Blood Count 3.75 M/uL (4.20-5.40); White Blood Count 7.55 K/ul (4.8-10.8)
--- NOTE | 2022-07-28 06:32 | Orthopedic Progress Note ---
Date of Service July 28, 2022 Assessment & Plan (1) Status post shoulder hemiarthroplasty: We will try to work on her hypoxia and her agitation today. Hopefully we can wean her down to a nasal cannula and may be completely off the oxygen throughout the day today. I talked to the nurse about reinforcing the dressing of her right shoulder. She will be seen by physical therapy today for ambulation and gentle range of motion exercises. We will keep her in the hospital today for medical management. Radha Celaya was seen and examined at bedside this morning. Unfortunately, she had a rough night last night. She was very agitated. She kept trying to get up without assistance. The hospitalist was consulted. A Brown was placed. Her Ativan was discontinued with concerns for delirium. She has been on the BiPAP machine.. Review of Systems All systems reviewed & are unremarkable except as noted in HPI & below. Physical Exam On physical examination of the right shoulder, there has been some drainage through the dressing. The dressing has been reinforced. She is wearing her sling as instructed.. Results & Data Results & Data Laboratory Results . Diagnostic Findings Postoperative x-rays of the right shoulder show the prosthesis to be in anatomic alignment without any evidence of fracture, screws, or loosening. PG Care Time/CCT Total # of Minutes Spent Total Time Spent with Patient: Total time spent is greater than 50% in coordination of care (as documented) at patient's floor/unit and/or counseling patient: Coding Level of Care Code 57920 Post Operative Follow-Up Diagnoses Status post shoulder hemiarthroplasty Z96.619
[2022-07-28 06:44] LABS: BUN Creatinine Ratio 23.1 (10-20); Calcium 8.5 mg/dl (8.6-10.3); Est GFR (African American) 73.1 ml/min; Potassium 4.7 mmol/L (3.5-5.1)
[2022-07-28 07:39] LABS: Estimated Average Glucose 180 mg/dl; Hemoglobin A1C 7.9 % (4.5-5.6)
[2022-07-28] MEDS: rOPINIRole HCL 1 MG TABLET PO SCH ×2 (08:06→20:37)
[2022-07-28] MEDS: DOCUSATE SODIUM 100 MG CAP PO SCH ×2 (08:06→20:36)
[2022-07-28] MEDS: PANTOprazole 40 MG TAB PO SCH (08:07)
[2022-07-28] MEDS: ASPIRIN 81 MG ECTAB PO SCH (08:07)
[2022-07-28] MEDS: FEXOFENADINE HCL 180 MG TAB PO SCH (08:07)
[2022-07-28] MEDS: LOSARTAN POTASSIUM 50 MG TAB PO SCH (08:07)
[2022-07-28] MEDS: FUROSEMIDE 40 MG TAB PO SCH (08:07)
[2022-07-28] MEDS: METOPROLOL TARTRATE 25 MG TAB PO SCH (08:08)
[2022-07-28] MEDS: buPROPion SR 100 MG TABCR PO SCH (08:08)
[2022-07-28] MEDS: ESCITALOPRAM OXALATE 10 MG TAB PO SCH (08:08)
[2022-07-28] MEDS: MULTIVITAMIN TAB PO SCH (08:08)
[2022-07-28] MEDS: LANTUS PER UNIT CHARGE SC SCH ×2 (08:22→20:38)
[2022-07-28] MEDS ORDERED: PNEUMOCOCCAL POLYSACCHARIDES 25 MCG/0.5 ML VIAL/SYR IM ONE (09:00)
[2022-07-28] MEDS: oxyCODONE HCL IR 5 MG TAB (IMMEDIATE RELEASE) PO PRN ×3 (09:01→22:51)
--- NOTE | 2022-07-28 09:13 | Hospitalist Progress Note ---
Date of Service July 28, 2022 Assessment & Plan (1) Acute respiratory failure: Plan: -Acute postprocedural respiratory failure 2/2 postoperative atelectasis -Required BIPAP, now weaned to RA -Supportive care- incentive spirometry, flutter valve, encourage ambulation as tolerated (2) Restlessness and agitation: Plan: -Likely represents delirium - post op -resolved. -1:1 observation as needed -Holding home Ativan, gabapentin -Melatonin PRN insomnia (3) Status post shoulder hemiarthroplasty: Plan: -POD2 revision of R shoulder arthroplasty -Pain control, management per orthopedics (4) Anemia: Plan: -Hgb 9.1, baseline 10-11 -Likely postoperative acute blood loss anemia -Trend CBC (5) Diabetes: Plan: -A1C 7.9% -Lantus, SSI -BSGs elevated 170s-200s, will adjust insulin regimen -Monitor BSGs Plan FENGI: DM2. Brown in place- will remove in lieu of intermittent straight catheterization Code status: Full DVT ppx: SCDs, defer chemoprophylaxis to orthopedics Isolation: None Dispo: PCU Admission and Anticipated Discharge Date Admission Date: July 27, 2022 Supervising Physician Co-Signing Physician Notes Resident Physician Supervision Note: I independently interviewed and examined the patient and verified the quintero history and physical, reviewed labs and image studies and agree with resident findings and care plan. Subjective Acute events overnight- none. Pt weaned from BIPAP to 4L NC, agitation resolved w/o PRN medication. Pt examined at bedside. She does feel better, reports frequent productive cough with associated dyspnea. Review of Systems Review of Systems: All systems reviewed & are unremarkable except as noted in HPI & below. Physical Exam Physical Exam: General: Morbidly obese woman in no acute distress. Nasal cannula in place HEENT: PERRLA. Normal conjunctiva, anicteric sclera. Oropharynx normal. Respiratory: Normal respiratory effort, CTABL. Mildly tachypneic with exertion Cardiovascular: RRR without murmurs, gallops, or rubs. No edema. GI: Soft, nontender, nondistended Neuro: Alert and oriented x3 Results & Data Results & Data Vital Signs (Past 12 Hours) Vital Signs Temp Pulse Pulse Resp BP Pulse Ox O2 Del Method 07/28/22 07:18 36.7 C 75 21 171/80 H 97 Nasal Cannula 07/28/22 03:00 36.5 C 76 24 164/84 H 97 BiPAP 07/28/22 02:07 79 23 92 07/27/22 23:17 97 H 07/27/22 23:02 36.7 C 94 H 22 161/90 H 93 Nasal Cannula 07/27/22 22:30 86 21 92 O2 Flow Rate 07/28/22 07:18 4 07/28/22 03:00 07/28/22 02:07 4 07/27/22 23:17 07/27/22 23:02 4 07/27/22 22:30 4 Resident Activity Tracking Resident Involvement: Resident Care Provided Care Provided: Adult Hospital Medicine
--- NOTE | 2022-07-28 10:30 | Pharmacy Report ---
Pharmacy Glycemic Short Note 2 - Date of Service July 28, 2022 - Glycemic Short BSG Results (Last 24 hours): 07/27/22 07/27/22 07/27/22 10:30 15:32 18:54 Glucose POC Glucose 152 H 173 H 241 H 07/27/22 07/28/22 07/28/22 23:57 04:23 05:47 Glucose 193 H POC Glucose 220 H 195 H 07/28/22 07:21 Glucose POC Glucose 196 H OUTPATIENT ANTIDIABETIC REGIMEN: * Metformin 1gm PO BID * A1c = 7.9% 07/28/22 ASSESSMENT: * Type 2 diabetic admitted for shoulder shital-arthroplasty * POD # 1 * Pt did receive dexamethasone 8mg PO pre-op yesterday - likely leading to increased insulin resistance yesterday. Effects likely to dissipate today * Will resume outpt dose of metformin this afternoon as renal fxn assessed today and adequate to resume plus patient is tolerating diet. * Will continue basal/bolus SQ regimen, however utilize "low" stress Lantus dose in combo with "moderate" stress Novolog based upon pt weight PLAN FOR INPATIENT GLYCEMIC CONTROL: * Resume outpt metformin * Basal insulin * Lantus 10 units SQ BID * Bolus insulin * NovoLog per scale ACHS or Q6hrs while NPO * Goal Range: Low 110 mg/dL - High 140 mg/dL * Correction Factor: 20 mg/dL/unit * Nutritional / Prandial insulin per carb ratio of 1 unit per 6 grams CHO consumed
[2022-07-28] MEDS: BENZONATATE 100 MG CAPSULE PO PRN (12:54)
[2022-07-28] MEDS: LORazepam 0.5 MG TAB PO PRN (12:54)
[2022-07-28] MEDS ORDERED: metFORMIN HCL 500 MG TAB PO SCH (17:00)
[2022-07-28] MEDS: SENNA 8.6 MG TAB PO SCH (20:35)
[2022-07-28] MEDS: ATORVASTATIN 40 MG TAB PO SCH (20:38)
[2022-07-28] MEDS ORDERED: LANTUS PER UNIT CHARGE SC SCH (21:00)
[2022-07-29] MEDS: LORazepam 0.5 MG TAB PO PRN ×2 (01:38→13:22)
[2022-07-29 06:33] LABS: Hematocrit (blood only) 27.7 % (37.0-47.0); Hemoglobin 8.4 g/dl (12.0-16.0); Mean Corpuscular Hemoglobin 24.5 pg (25.0-34.0); Mean Corpuscular Hgb Conc 30.3 g/dL (32.0-36.0); Mean Corpuscular Volume 80.8 fL (80.0-100.0); Mean Platelet Volume 9.7 fL (9.4-12.4); Platelet Count 373 K/uL (130-400); RDW Coefficient of Variation 14.9 % (11.5-14.5); RDW Standard Deviation 43.8 fL (36.4-46.3); Red Blood Count 3.43 M/uL (4.20-5.40); White Blood Count 10.71 K/ul (4.8-10.8)
[2022-07-29] MEDS: ACETAMINOPHEN 500 MG TAB PO SCH ×2 (06:37→13:22)
[2022-07-29] MEDS: ceFAZolin 2000MG 2,000 MG/15 ML SYR IV SCH (06:38)
[2022-07-29 07:19] LABS: Anion Gap 9 (3-11); Calcium 8.5 mg/dl (8.6-10.3); Carbon Dioxide 25 mmol/L (21-32); Chloride 103 mmol/L (98-107); Potassium 4.1 mmol/L (3.5-5.1); Sodium 137 mmol/L (136-145)
[2022-07-29 07:25] LABS: BUN Creatinine Ratio 27.7 (10-20); Blood Urea Nitrogen 26 mg/dl (6-23); Creatinine Clr Calc Pharmacy 71.9 ml/min; Est GFR (African American) 70.2 ml/min; Est GFR (Non-African American) 60.6 ml/min; Glucose 105 mg/dl (70-99(Fasting))
[2022-07-29] MEDS: BENZONATATE 100 MG CAPSULE PO PRN (08:13)
[2022-07-29] MEDS: LANTUS PER UNIT CHARGE SC SCH (08:13)
[2022-07-29] MEDS: INSULIN ASPART PER UNIT CHARGE SC SCH ×2 (08:14→12:07)
[2022-07-29] MEDS ORDERED: Nursing to Pharmacy Communication SCH (08:15)
[2022-07-29] MEDS: DOCUSATE SODIUM 100 MG CAP PO SCH (08:16)
[2022-07-29] MEDS: buPROPion SR 100 MG TABCR PO SCH (08:16)
[2022-07-29] MEDS: ESCITALOPRAM OXALATE 10 MG TAB PO SCH (08:17)
[2022-07-29] MEDS: FUROSEMIDE 40 MG TAB PO SCH (08:17)
[2022-07-29] MEDS: PANTOprazole 40 MG TAB PO SCH (08:18)
[2022-07-29] MEDS: ASPIRIN 81 MG ECTAB PO SCH (08:18)
[2022-07-29] MEDS: FEXOFENADINE HCL 180 MG TAB PO SCH (08:18)
[2022-07-29] MEDS: MULTIVITAMIN TAB PO SCH (08:19)
[2022-07-29] MEDS: rOPINIRole HCL 1 MG TABLET PO SCH (08:19)
[2022-07-29] MEDS: METOPROLOL TARTRATE 25 MG TAB PO SCH (08:19)
[2022-07-29] MEDS: LOSARTAN POTASSIUM 50 MG TAB PO SCH (08:19)
[2022-07-29 09:21] LABS: Ferritin 9.3 ng/ml (8-388)
--- NOTE | 2022-07-29 09:22 | Hospitalist Progress Note ---
Date of Service July 29, 2022 Assessment & Plan (1) Acute respiratory failure: Plan: -Acute postprocedural respiratory failure 2/2 postoperative atelectasis -Required BIPAP, now weaned to RA -Supportive care- incentive spirometry, flutter valve, encourage ambulation as tolerated Hospitalist team will be signing off at this time. Please call if requiring any further assistance. (2) Restlessness and agitation: Plan: -Likely represents delirium - post op -resolved. -1:1 observation as needed -Can resume home Ativan, gabapentin now that delirium has cleared -Melatonin PRN insomnia (3) Status post shoulder hemiarthroplasty: Plan: -POD3 revision of R shoulder arthroplasty -Pain control, management per orthopedics (4) Anemia: Plan: -Hgb 8.4, baseline 10-11 -Likely postoperative acute blood loss anemia -Iron studies noting deficiency- 1x Venofer given -Recommend CBC as outpatient (5) Diabetes: Plan: -A1C 7.9% -Lantus, SSI -BSGs elevated 170s-200s, adjust insulin regimen per trend -Monitor BSGs Plan FENGI: DM2 Code status: Full DVT ppx: SCDs, defer chemoprophylaxis to orthopedics vs PCP f/u until pt ambulating at baseline Isolation: None Dispo: D/c planning per orthopedics Admission and Anticipated Discharge Date Admission Date: July 27, 2022 Supervising Physician Co-Signing Physician Notes Resident Physician Supervision Note: I independently interviewed and examined the patient and verified the quintero history and physical, reviewed labs and image studies and agree with resident findings and care plan. Subjective Acute events overnight- none. Pt examined at bedside. Feels well, denies dyspnea. Review of Systems Review of Systems: All systems reviewed & are unremarkable except as noted in HPI & below. Physical Exam Physical Exam: General: Morbidly obese woman in no acute distress. Nasal cannula in place HEENT: PERRLA. Normal conjunctiva, anicteric sclera. Oropharynx normal. Respiratory: Normal respiratory effort, CTABL Cardiovascular: RRR without murmurs, gallops, or rubs. No edema. GI: Soft, nontender, nondistended Neuro: Alert and oriented x3 Results & Data Results & Data Vital Signs (Past 12 Hours) Vital Signs Temp Pulse Pulse Resp BP Pulse Ox O2 Del Method 07/29/22 07:52 37 C 85 20 153/74 H 96 Room Air 07/29/22 01:35 81 25 H 100 07/29/22 03:34 36.8 C 86 21 168/79 H 97 CPAP 07/29/22 00:00 85 07/28/22 23:14 36.7 C 86 18 131/68 94 Room Air O2 Flow Rate 07/29/22 07:52 07/29/22 01:35 2 07/29/22 03:34 07/29/22 00:00 07/28/22 23:14 Resident Activity Tracking Resident Involvement: Resident Care Provided Care Provided: Adult Hospital Medicine
[2022-07-29 09:27] LABS: Iron < 10 mcg/dl (35-150); Unsaturated Iron Binding Cap 373 mcg/dl (155-355)
[2022-07-29] MEDS ORDERED: IRON SUCROSE 300 MG in SODIUM CHLORIDE 0.9% 250 ML IV ONE (10:00)
--- NOTE | 2022-07-29 16:22 | Orthopedic Progress Note ---
Date of Service July 29, 2022 Assessment & Plan (1) Status post shoulder hemiarthroplasty: Overall she is doing better. She is not having as much pain in the shoulder. Her lungs are doing better and she is satting on room air. She will be seen by physical therapy today for ambulation. She will be discharged home later today. She will follow-up with orthopedics in 2 weeks. Subjective Belia was seen and examined at bedside this morning. Overall she is doing fairly well. She is not having too much pain in the shoulder. Her lungs are feeling much better. She is no complaints.. Review of Systems All systems reviewed & are unremarkable except as noted in HPI & below. Physical Exam On physical examination of the right shoulder, the dressing has a little bit of drainage but not much. She is wearing her sling as instructed. She is neurovascular intact.. Results & Data Results & Data Laboratory Results . Diagnostic Findings . PG Care Time/CCT Total # of Minutes Spent Total Time Spent with Patient: Total time spent is greater than 50% in coordination of care (as documented) at patient's floor/unit and/or counseling patient: Coding Level of Care Code 23617 Post Operative Follow-Up Diagnoses Status post shoulder hemiarthroplasty Z96.619
--- NOTE | 2022-07-29 16:24 | Discharge Summary ---
Date of Service July 29, 2022 Principal Diagnosis Same as "Discharge Diagnosis" noted below under Discharge Instructions. Discharge Exam On physical examination of the right shoulder, the dressing has a little bit of drainage but not much. She is wearing her sling as instructed. She is neurovascular intact.. Discharge Data Consultations 07/27/22 21:27 Consult Hospitalist Stat Procedures Performed Operation Date: 07/27/22 12:50 Actual Procedures p Revision reverse Right Total Shoulder Arthroplasty Reverse with HemiArthroplasty(Right) - Enoch Capellan DO Ordered Studies 07/27/22 05:00 US - OR guided needle placemen Routine Hospital Course (1) Status post shoulder hemiarthroplasty: On July 27, 2022 Belia arrived at [facility] and underwent a revision shoulder replacement to a shoulder hemiarthroplasty. She had a general anesthetic and a right interscalene nerve block. Postoperatively she was placed in a sling and transferred to the general orthopedic floors. On postop day #1 she was dealing with some hypoxia. She was on a BiPAP machine. She was also dealing with a lot of agitation. The hospitalist was consulted. Throughout the day she started to feel little bit better. She was weaned off her oxygen. Her agitation and mostly resolved. On postop day #2 she was doing better. Her oxygen saturations were 94% on room air. She was able to participate well with physical therapy. She was then discharged home. She will follow-up with orthopedics in 2 weeks. PG Care Time/CCT Total # of Minutes Spent Total Time Spent with Patient: Total time spent is greater than 50% in coordination of care (as documented) at patient's floor/unit and/or counseling patient: Discharge Plan Discharge Items Patient Disposition: Home - Home Health Services Reason For Visit: POST SURGICAL CARE Discharge Diagnosis: Revision shoulder surgery Activity: Per Instructions section Non-emergency contact: Surgeon Call non-emergency contact if: your wound has increased redness and your wound has increased drainage Follow-up/Referrals: Abe Osullivan DO [Primary Care Provider] - (Follow up with Enoch Moreno scheduled on August 12 @ 11:30) Diet: Carb Consistent or DM2 Addtl Attending Provider Instructions: Activity and Therapy Recommendations: * If you are using [facility] then therapy will be provided at your home until they feel you have accomplished all of your goals. * If you are using [facility] then Physical Therapy will be provided until they feel you are ready to start Outpatient Physical Therapy. * If you are not using home therapy then Outpatient Physical Therapy should start about 3-5 days from your day of surgery. Therapy will last about 8-12 weeks * Wear your sling for 3 weeks, unless otherwise instructed. You may remove your sling to shower and to dress, but otherwise, you should be in your sling at all times, including while sleeping * The shoulder replacement is very stable and you can use your hand while in the sling * You were shown a series of exercises in the hospital. Do these exercises daily including the exercises you were shown in physical therapy. Medications: * Narcotic You will likely be sent home from the hospital with a prescription for the narcotic pain medication that worked best throughout your stay. * Other medications may be prescribed for specific circumstances. If you have any questions, please call the office at . * Resume previous home medications unless otherwise instructed Dressing Care: Leave the Silverlon dressing in place for 7 days. After 7 days you may remove the dressing. If the incision is not draining then you may leave the orquidea open to air. If there is a little bit of drainage or if the orquidea are getting stuck on your clothing then cover the incision with a dry dressing. The orquidea will be removed at your 2 week follow-up appointment. Showering: You may shower with the Silverlon dressing in place. Do not let the shower spray hit the dressing directly. Pat the Silverlon dressing dry. If the dressing becomes wet underneath, then simply remove the dressing. Keep the incision dry until you are 7 days out from the day of surgery. After 7 days you may remove the Silverlon dressing and shower with the orquidea exposed. Let soapy water run over the orquidea and pat them dry. Do not scrub or soak the incision. Things To Watch For: * Drainage from the incision site that occurs more than one week after your cedrick terrie. * Increased redness at the incision site. * Fever above 102 degrees Fahrenheit. * Unusual chest pain or shortness of breath. * Call [facility] at with any of the above problems Follow-Up Visit: Follow-up with Dr. Capellan's PA (Enoch Moreno) 2-3 weeks after your day of surgery. He will remove your orquidea and answer any questions. If you have any additional questions or concerns, Dr Capellan is usually in the office at the same time and will be available An appointment was probably scheduled when you signed-up for surgery in the off ice. If you have any questions call More detailed instructions as well as Frequently Asked Questions were provided in a folder by our office when you signed-up for surgery. Please review these instructions when you get home. If you have any further questions or concerns, please feel free to call the office at [phone] Pending Studies at Discharge: No Stand-Alone Forms: My [facility] Medications and DC Order Prescriptions: Continued losartan 50 mg Tablet 50 mg PO QAM furosemide 40 mg Tablet 40 mg PO QAM atorvastatin 40 mg Tablet 40 mg PO HS aspirin 81 mg Tablet,Delayed Release (Dr/Ec) 81 mg PO QAM bupropion HCl [Wellbutrin SR] 100 mg Tablet Sustained-Release 12 Hr 200 mg PO QAM lorazepam 0.5 mg Tablet 0.5 mg PO TID PRN (Reason: Anxiety) gabapentin 800 mg Tablet 800 mg PO TID pantoprazole 40 mg Tablet,Delayed Release (Dr/Ec) 40 mg PO QAM metformin 1,000 mg Tablet 1,000 mg PO BID ziprasidone HCl [Geodon] 40 mg Capsule 40 mg PO BID escitalopram oxalate [Lexapro] 20 mg Tablet 30 mg PO QAM metoprolol tartrate 25 mg Tablet 25 mg PO QAM albuterol sulfate 90 mcg/actuation Hfa Aerosol Inhaler 2 puff INHALATION QID PRN (Reason: Wheezing) meclizine 25 mg Capsule 25 mg PO TID PRN (Reason: Dizziness) acetaminophen 500 mg Tablet 500 mg PO Q6H PRN (Reason: Pain) fexofenadine [Esthela Allergy] 180 mg Tablet 180 mg PO QAM oxycodone-acetaminophen [Percocet] 7.5-325 mg Tablet 1.5 tab PO Q6H PRN (Reason: Pain) ropinirole 1 mg Tablet 1 mg PO BID Discharge Orders: Discharge Order (Routine); Ordered 07/29/22 Ordered By: Enoch Horvath/Other Patient Handouts: Managing Type 2 Diabetes, Special Foot Care for Diabetes Admission Data Admit Date/Time: 07/27/22 16:59 Attending Provider: Enoch Capellan Admit Provider: Enoch Capellan Primary Care Provider: Abe Osullivan Other Providers: Kiera Pruitt Elizabeth M Other Interventions: Discharge Summary Assessment (RN) Last Done: 07/29/22 10:43
== END 2022-07-29 14:29 | disposition home health service (06) | DRG 483 ==
LOC: ASU 09:58 → 2E 15:25
DX: K21.9 Gastro-esophageal reflux disease without esophagitis; E66.01 Morbid (severe) obesity due to excess calories; G47.30 Sleep apnea, unspecified; J98.11 Atelectasis; Y79.2 Prosthetic and other implants, materials and accessory orthopedic devices associated with adverse incidents; E11.65 Type 2 diabetes mellitus with hyperglycemia; R45.1 Restlessness and agitation; Z20.822 Contact with and (suspected) exposure to COVID-19; D62 Acute posthemorrhagic anemia; I11.0 Hypertensive heart disease with heart failure; Z79.82 Long term (current) use of aspirin; Z88.1 Allergy status to other antibiotic agents; F41.9 Anxiety disorder, unspecified; Z68.42 Body mass index [BMI] 45.0-49.9, adult; Z88.0 Allergy status to penicillin; F32.A Depression, unspecified; G47.00 Insomnia, unspecified; Z79.84 Long term (current) use of oral hypoglycemic drugs; J95.89 Other postprocedural complications and disorders of respiratory system, not elsewhere classified; E78.5 Hyperlipidemia, unspecified; I50.32 Chronic diastolic (congestive) heart failure; T84.018A Broken internal joint prosthesis, other site, initial encounter; J45.909 Unspecified asthma, uncomplicated; J95.821 Acute postprocedural respiratory failure; F05 Delirium due to known physiological condition